=== PATIENT | male | born 1945 | race Caucasian/White ===

== ENCOUNTER → 2017-11-22 07:54 | Outpatient (CLI) | payer MEDICARE, OTHER, SELFPAY ==
[2017-11-22 08:20] LABS: Alanine Aminotransferase 25 U/L (12-78); Albumin Level 3.9 gm/dL (3.4-5.0); Albumin/Globulin Ratio 1.2 (1.1-1.8); Alkaline Phosphatase 72 U/L (46-116); Anion Gap 11.5 mEq/L (5-15); Aspartate Amino Transferase 11 U/L (15-37); Bilirubin,Total 0.4 mg/dL (0.2-1.0); Blood Urea Nitrogen 21 mg/dL (7-18); Calcium 10.1 mg/dL (8.5-10.1); Carbon Dioxide 29 mmol/L (21.0-32.0); Chloride 106 mmol/L (98-107); Chol/HDL Ratio 2.8 (1-3.5); Cholesterol 126 mg/dL (140-200); Creatinine,Serum 1.51 mg/dL (0.70-1.30); Estimated Glomerular Filt Rate 45 ml/min (>60); GFR (African American) 55 ML/MIN (>60); Globulin 3.3 gm/dl (1.3-3.2); Glucose 121 mg/dL (74-106); HDL Cholesterol 45 mg/dL (27-67); LDL Cholesterol 69 mg/dL (0-130); Potassium 4.5 mmoL/L (3.5-5.1); Sodium 142 mmol/L (136-145); Total Protein,Serum 7.2 gm/dL (6.4-8.2); Triglycerides 59 mg/dL (30-200); VLDL Cholesterol 12 mg/dL (0-40)
--- NOTE | 2017-11-22 08:21 | CT_ITS ---
CT abdomen pelvis wo/w con CLINICAL INDICATION: Hematuria ITS.REASON: Hematuria ORDERING PHYSICIAN: Austyn Staton MD PATIENT AGE: 72 years COMPARISON: 05/06/2011 TECHNIQUE: The exam is performed without and with contrast. Post enhanced immediate and 10 minute delayed images are obtained. Axial images obtained with sagittal and coronal reformats. All CT scans at the facility use one or more dose reduction, viz: automated exposure control, ma/kV adjustment per patient size (including targeted exams where dose is matched to indication, i.e. head), or iterative reconstruction technique. PROCEDURE: Oral Contrast: None IV Contrast: 75 mL's of Isovue-370.. FINDINGS: Lung bases are clear. The liver, spleen, adrenal glands, gallbladder, and pancreas have an unremarkable appearance. No renal calculi are evident. There is a 7 x 2 mm stone in the proximal left ureter. There is no obvious hydronephrosis. No suspicious renal mass. Small cyst is present along the lower pole the right kidney at 8 mm. The prostate is enlarged measuring 6 cm cephalad to caudad and 5.3 cm transverse with some central and peripheral coarse calcifications. Unremarkable appearing urinary bladder. Unremarkable appendix. No evidence of diverticulitis. There are diverticula of the descending and sigmoid colon. There are degenerative changes of lumbar spine. IMPRESSION: 1. 7 x 2 mm left proximal ureteral stone. No hydronephrosis. 2. Enlarged prostate. 3. Diverticulosis coli
[2017-11-23 14:54] LABS: Vitamin D 25 Hydroxy 46.7 ng/mL (30.0-100.0)
== END ==
PROVIDERS: Nurse Practitioner Family; Family Provider Internal Medicine Adolescent Medicine; PCP Internal Medicine Adolescent Medicine; Visit Provider Urology
DX: E78.5 Hyperlipidemia, unspecified (principal); I10 Essential (primary) hypertension; E55.9 Vitamin D deficiency, unspecified; R31.9 Hematuria, unspecified
CPT/HCPCS: 36415; 74170; 74178; 80053; 80061; 82652; Q9967

== ENCOUNTER → 2017-12-20 10:22 | Outpatient (CLI) | payer MEDICARE, OTHER, SELFPAY ==
--- NOTE | 2017-12-20 10:26 | XR_ITS ---
XR KUB HISTORY: ITS.REASON: KIDNEY STONE ORDERING PHYSICIAN: Austyn Staton MD PATIENT AGE: 72 years COMPARISON: 11/22/2017 FINDINGS: A left ureteral stent has been placed with the proximal aspect overlying the left region of the left renal pelvis and the distal aspect overlying the urinary bladder. There is a small area of increased density overlying the distal aspect of the ureteral stent and could be related to a distal ureteral stone. This measures approximately 4 mm There are degenerative changes in the lumbar spine and there is scattered vascular calcifications. IMPRESSION: Interval placement of left ureteral stent with possible stone in the distal left ureter at the ureterovesical junction
== END ==
PROVIDERS: PCP Internal Medicine Adolescent Medicine; Visit Provider Urology
DX: N20.0 Calculus of kidney (principal)
CPT/HCPCS: 74018

== ENCOUNTER → 2018-02-13 09:38 | Outpatient (POV) | payer MEDICARE, OTHER, SELFPAY ==
[2018-02-13 09:53] VITALS: BP 109/70; PULSE 71; RESP 18; O2SAT 94
--- NOTE | 2018-02-13 10:13 | HMH.PMCON ---
Assessment and Plan (1) Degenerative disc disease Current visit: Yes Status: Chronic Qualifiers: Spinal region: lumbar Qualified Code(s): M51.36 - Other intervertebral disc degeneration, lumbar region Category: Medical (2) Lumbar radiculopathy Current visit: Yes Status: Chronic Category: Medical Code(s): M54.16 - Radiculopathy, lumbar region - Assessment and plan all Dx Assessment and Plan for all problems:: We will schedule an L4-L5 lumbar epidural steroid injection for the patient. Patient is interested in this therapy. Patient is not on any anticoagulation therapy. Patient has tried and failed other therapies including physical therapy. Patient is continuing a home stretching regimen. I will follow-up with the patient after his injection. This note was dictated using voice recognition software and may contain errors or omissions HPI - Data of Consult Consult date: 02/13/18 Requesting Physician: Idalia Alcantar APRN Primary Care Provider: Aaron Peck MD - Consult Narrative Reason for consult: Back pain History of present illness: Mr. Burks is a 72 year old male who presents today for consultation in regards to his low back pain. Patient has low back pain radiating into his right leg at times. Patient also has some generalized arthritic pains. Patient has recently been having some numbness in his bilateral hands as well. Patient rates his pain a 5 out of 10 and states it is pretty constant. He states that stretching and heat decreases pain will cold and walking increase it. Patient has tried continual stretching programs along with narcotic medication and anti-inflammatories with no relief. Patient's not on any anticoagulation therapy. Patient is interested in injective therapy. CC: Idalia Alcantar APRN [facility] History I have reviewed the patient's past medical history: Yes Medical History: Reports:: Chronic Obstructive Pulmonary Disease (COPD), Hyperlipidemia, Hypertension, Urinary Tract Infection Denies:: Cancer, Diabetes Mellitus Type 1, Diabetes Mellitus Type 2, MRSA Other Medical History: Reports: Arthritis - *Social History Smoking Status: Never smoker Alcohol Intake: never Occupational Status: retired Housing: house - Psychiatric History Expresses thoughts of harming self/others: None Suicide Plan Description: No Plan *Family Hx:: No significant family history Review of Systems - Review of Systems ROS General: no recent weight change, no fever, no sleep disturbances Respiratory: no cough, no shortness of air, no recurring pulmonary infections Cardiovascular/Peripheral Vascular: No chest pain, No palpitations, no edema, no shortness of breath. Gastrointestinal: no new onset incontinence Genitourinary: no new onset incontinence Musculoskeletal: Back pain, leg pain, knee pain Psychiatric: normal mood/ affect Neurological: Weakness bilateral lower extremities, utilizes cane for balance Meds Home Medications Medication Instructions Recorded Confirmed Type atorvastatin 80 mg tablet PO 90 Days #90 11/15/17 01/10/18 History gabapentin 100 mg capsule PO 30 Days #90 11/15/17 01/10/18 History losartan 100 PO 90 Days #90 11/15/17 01/10/18 History mg-hydrochlorothiazide 25 mg tablet naproxen 500 mg tablet PO 30 Days #60 11/15/17 01/10/18 History potassium chloride ER 20 mEq PO 90 Days #180 11/15/17 01/10/18 History tablet,extended release(part/cryst) ranitidine 150 mg tablet PO 60 Days #120 11/15/17 01/10/18 History tamsulosin 0.4 mg capsule PO 90 Days #90 11/15/17 01/10/18 History Allergies Allergy/AdvReac Type Severity Reaction Status Date / Time codeine Allergy Unknown Verified 01/10/18 08:55 Penicillins Allergy Unknown Verified 01/10/18 08:55 Objective Vital signs: Pulse Resp BP Pulse Ox 71 18 109/70 L 94 L 02/13/18 09:53 02/13/18 09:53 02/13/18 09:53 02/13/18 09:53 Narrative: Physical Exam Gener
--- NOTE | 2018-02-13 10:17 | P.CONS_ITS ---
Assessment and Plan (1) Degenerative disc disease Current visit: Yes Status: Chronic Qualifiers: Spinal region: lumbar Qualified Code(s): M51.36 - Other intervertebral disc degeneration, lumbar region Category: Medical (2) Lumbar radiculopathy Current visit: Yes Status: Chronic Category: Medical Code(s): M54.16 - Radiculopathy, lumbar region - Assessment and plan all Dx Assessment and Plan for all problems:: We will schedule an L4-L5 lumbar epidural steroid injection for the patient. Patient is interested in this therapy. Patient is not on any anticoagulation therapy. Patient has tried and failed other therapies including physical therapy. Patient is continuing a home stretching regimen. I will follow-up with the patient after his injection. This note was dictated using voice recognition software and may contain errors or omissions HPI - Data of Consult Consult date: 02/13/18 Requesting Physician: Idalia Alcantar APRN Primary Care Provider: Aaron Peck MD - Consult Narrative Reason for consult: Back pain History of present illness: Mr. Burks is a 72 year old male who presents today for consultation in regards to his low back pain. Patient has low back pain radiating into his right leg at times. Patient also has some generalized arthritic pains. Patient has recently been having some numbness in his bilateral hands as well. Patient rates his pain a 5 out of 10 and states it is pretty constant. He states that stretching and heat decreases pain will cold and walking increase it. Patient has tried continual stretching programs along with narcotic medication and anti- inflammatories with no relief. Patient's not on any anticoagulation therapy. Patient is interested in injective therapy. CC: Idalia Alcantar APRN [facility] History I have reviewed the patient's past medical history: Yes Medical History: Reports:: Chronic Obstructive Pulmonary Disease (COPD), Hyperlipidemia, Hypertension, Urinary Tract Infection Denies:: Cancer, Diabetes Mellitus Type 1, Diabetes Mellitus Type 2, MRSA Other Medical History: Reports: Arthritis - *Social History Smoking Status: Never smoker Alcohol Intake: never Occupational Status: retired Housing: house - Psychiatric History Expresses thoughts of harming self/others: None Suicide Plan Description: No Plan *Family Hx:: No significant family history Review of Systems - Review of Systems ROS General: no recent weight change, no fever, no sleep disturbances Respiratory: no cough, no shortness of air, no recurring pulmonary infections Cardiovascular/Peripheral Vascular: No chest pain, No palpitations, no edema, no shortness of breath. Gastrointestinal: no new onset incontinence Genitourinary: no new onset incontinence Musculoskeletal: Back pain, leg pain, knee pain Psychiatric: normal mood/ affect Neurological: Weakness bilateral lower extremities, utilizes cane for balance Meds Home Medications Medication Instructions Recorded Confirmed Type atorvastatin 80 mg tablet PO 90 Days #90 11/15/17 01/10/18 History gabapentin 100 mg capsule PO 30 Days #90 11/15/17 01/10/18 History losartan 100 PO 90 Days #90 11/15/17 01/10/18 History mg-hydrochlorothiazide 25 mg tablet naproxen 500 mg tablet PO 30 Days #60 11/15/17 01/10/18 History potassium chloride ER 20 mEq PO 90 Days #180 11/15/17 01/10/18 History tablet,extended release(part/cryst)
== END ==
PROVIDERS: PCP Internal Medicine Adolescent Medicine; Visit Provider Clinical Nurse Specialist Family Health
DX: M51.16 Intervertebral disc disorders with radiculopathy, lumbar region (principal)
CPT/HCPCS: 99202

== ENCOUNTER → 2018-04-03 13:48 | Outpatient (POV) | payer MEDICARE, OTHER, SELFPAY ==
--- NOTE | 2018-04-03 14:08 | HMH.PAINSOAP ---
[facility] Pain Management SOAP Note Subjective:: Patient is a pleasant 72-year-old white male who presents today for follow-up after lumbar epidural steroid injection. Patient rates his pain a 7 out of 10 today. Patient rates that he did not get any relief from his epidural injection if he states most pain is in his back and not radiating. Patient does have some pain on twisting movement. ROS General: no recent weight change, no fever, no sleep disturbances Respiratory: no cough, no shortness of air, no recurring pulmonary infections Cardiovascular/Peripheral Vascular: No chest pain, No palpitations, no edema, no shortness of breath. Gastrointestinal: no incontinence, normal bowel movements reported Genitourinary: no incontinence Musculoskeletal: Back pain Psychiatric: normal mood/ affect Neurological: [denies weakness in extremities], [denies balance issues] Objective:: Physical Exam General: Alert and oriented x3, no acute distress, pleasant and cooperative, [on room air] Lungs: Resps E/U, Symmetrical chest expansion, Eyes: PERRL Musculoskeletal: Flexion and extension of lumbar spine somewhat guarded secondary to pain, deep tendon reflexes normal, strength in upper and lower extremities [5/5], [abnormal gait noted] Positive Kemps test bilateral lumbar spine. 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 I believe it would be beneficial and help with diagnosing his pain source. Patient is having positive facet loading lumbar spine bilaterally. No follow-up with the patient after his injection and reassess his symptoms at that time. Patient is able to take NSAIDs due to his kidneys. Patient is taking Tylenol. Patient is continuing a home stretching regimen. This note was dictated using voice recognition software and may contain errors or omissions
--- NOTE | 2018-04-03 14:11 | P.CONS_ITS ---
[facility] Pain Management SOAP Note Subjective:: Patient is a pleasant 72-year-old white male who presents today for follow-up after lumbar epidural steroid injection. Patient rates his pain a 7 out of 10 today. Patient rates that he did not get any relief from his epidural injection if he states most pain is in his back and not radiating. Patient does have some pain on twisting movement. ROS General: no recent weight change, no fever, no sleep disturbances Respiratory: no cough, no shortness of air, no recurring pulmonary infections Cardiovascular/Peripheral Vascular: No chest pain, No palpitations, no edema, no shortness of breath. Gastrointestinal: no incontinence, normal bowel movements reported Genitourinary: no incontinence Musculoskeletal: Back pain Psychiatric: normal mood/ affect Neurological: [denies weakness in extremities], [denies balance issues] Objective:: Physical Exam General: Alert and oriented x3, no acute distress, pleasant and cooperative, [on room air] Lungs: Resps E/U, Symmetrical chest expansion, Eyes: PERRL Musculoskeletal: Flexion and extension of lumbar spine somewhat guarded secondary to pain, deep tendon reflexes normal, strength in upper and lower extremities [5/5], [abnormal gait noted] Positive Kemps test bilateral lumbar spine. 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 I believe it would be beneficial and help with diagnosing his pain source. Patient is having positive facet loading lumbar spine bilaterally. No follow-up with the patient after his injection and reassess his symptoms at that time. Patient is able to take NSAIDs due to his kidneys. Patient is taking Tylenol. Patient is continuing a home stretching regimen. This note was dictated using voice recognition software and may contain errors or omissions
[2018-04-03 14:32] VITALS: BP 148/71; PULSE 70; RESP 18; O2SAT 98; BMI 43.7
== END ==
PROVIDERS: PCP Internal Medicine Adolescent Medicine; Visit Provider Clinical Nurse Specialist Family Health
DX: M51.36 Other intervertebral disc degeneration, lumbar region (principal); M54.06 Panniculitis affecting regions of neck and back, lumbar region; M47.896 Other spondylosis, lumbar region
CPT/HCPCS: 99213

== ENCOUNTER → 2018-05-01 12:44 | Outpatient (POV) | payer MEDICARE, OTHER, SELFPAY ==
[2018-05-01 13:15] VITALS: BP 132/67; PULSE 62; RESP 18; O2SAT 99; BMI 42.3
--- NOTE | 2018-05-01 13:19 | P.CONS_ITS ---
[facility] Pain Management SOAP Note Subjective:: Patient is a pleasant 72-year-old white male who we are treating for low back pain with lumbar radicular symptoms. Patient has tried and failed both epidural and facet joint injections. Patient got no relief he rates his pain a 9 out of 10. Patient states he is less active. Patient does not have any recent imaging. I do believe it would be pertinent to get some updated diagnostic studies. ROS General: no recent weight change, no fever, no sleep disturbances Respiratory: no cough, no shortness of air, no recurring pulmonary infections Cardiovascular/Peripheral Vascular: No chest pain, No palpitations, no edema, no shortness of breath. Gastrointestinal: no incontinence, normal bowel movements reported Genitourinary: no incontinence Musculoskeletal: Back pain, leg pain Psychiatric: normal mood/ affect Neurological: Bilateral lower extremities, [denies balance issues] Objective:: Physical Exam General: Alert and oriented x3, no acute distress, pleasant and cooperative, [on room air] Lungs: Resps E/U, Symmetrical chest expansion, Eyes: PERRL Musculoskeletal: Flexion and extension of lumbar spine somewhat guarded secondary to pain, deep tendon reflexes normal, strength in upper and lower extremities [4/5], [abnormal gait noted] Neurological: 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 Patient might be a candidate for intrathecal therapy. I will follow-up with him after his MRI. Dr. Goss has reviewed this note and agrees with this plan of care. This note was dictated using voice recognition software and may contain errors or omissions
== END ==
PROVIDERS: PCP Internal Medicine Adolescent Medicine; Visit Provider Clinical Nurse Specialist Family Health
DX: M51.36 Other intervertebral disc degeneration, lumbar region (principal); M47.896 Other spondylosis, lumbar region; M54.06 Panniculitis affecting regions of neck and back, lumbar region
CPT/HCPCS: 99213

== ENCOUNTER → 2018-05-04 09:36 | Outpatient (CLI) | payer MEDICARE, OTHER, SELFPAY ==
--- NOTE | 2018-05-04 09:39 | MR_ITS ---
MR lumbar spine wo con, MR 3-d myelogram/MRCP HISTORY: PT states Low back pain, mid back pain, and right leg pain. At times PT states Rt toes numbness and tingling. Symptoms X 1 YR or longer. ITS.REASON: BACK PAIN ORDERING PHYSICIAN: Carlos Eduardo Goss MD PATIENT AGE: 72 years Comparison: MRI 07/16/13. TECHNIQUE: Standard multiplanar multiecho sequences are performed without contrast. 3-D MIP and myelographic images are also rendered and reviewed FINDINGS: There is normal alignment. The spinal cord ends at the L1 level. Multilevel degenerative disc disease with bulging disc and canal stenosis is noted as outlined below. T11-12: Degenerative disc disease with bulging disc and minimal left paracentral disc protrusion with borderline narrowing of the canal. There is severe bilateral lateral recess narrowing and moderate bilateral foraminal narrowing. Lateral recess narrowing is slightly greater on the left secondary to the mild left paracentral disc protrusion. These findings have progressed since the previous exam. T12-L1: Mild facet and ligamentum flavum hypertrophy. L1-L2: Degenerative disc disease with bulging disc with 3 mm anterolisthesis of L1. Moderate facet and ligamentum flavum hypertrophy with moderate to severe bilateral lateral recess narrowing and moderate bilateral foraminal narrowing. Prominent facet hypertrophic changes present on the left at this level with narrowing of the canal. There is transverse narrowing of the canal. The left-sided ligamentum and facet hypertrophy has progressed since the previous exam. L2-L3: Degenerative disc disease with bulging disc along with facet and ligamentum flavum hypertrophy L3-L4: Degenerative disc disease with bulging disc and mild endplate hypertrophic change with moderate to severe facet and ligamentum flavum hypertrophy. There is transverse narrowing of the canal at this level. The narrowing of the canal slightly worse compared to the previous exam. L4-5: Degenerative disc disease with bulging disc with severe facet and ligamentum flavum hypertrophy. There is severe bilateral lateral recess narrowing and severe canal stenosis at this level which has progressed since the previous exam moderate right-sided foraminal narrowing also noted. L5-S1: Degenerative disc disease with bulging disc along with facet and ligamentum flavum hypertrophy with moderate to severe bilateral foraminal narrowing left greater than right. No extruded herniated disc are evident. IMPRESSION: Abnormal MR of the lumbar spine with multilevel degenerative disc disease with bulging bulging discs along with facet and ligamentum flavum hypertrophic change with canal stenosis and bilateral lateral recess and foraminal narrowing. Please see above for detailed description at each level. This canal stenosis is most severe at the L4-L5 level. The findings have progressed since the previous exam. There is a small left paracentral disc protrusion at T11-T12.
== END ==
PROVIDERS: PCP Internal Medicine Adolescent Medicine; Visit Provider Anesthesiology
DX: M54.5 Low back pain (principal)
CPT/HCPCS: 72148; 76376

== ENCOUNTER → 2018-05-16 09:24 | Outpatient (POV) | payer MEDICARE, OTHER, SELFPAY ==
[2018-05-16 09:35] VITALS: BP 155/74; PULSE 74; RESP 18; O2SAT 98; BMI 42.7
--- NOTE | 2018-05-16 09:58 | HMH.PAINSOAP ---
[facility] Pain Management SOAP Note Subjective:: Patient is a pleasant 72-year-old white male who presents today for follow-up after recent MRI. Patient has had facet joint injections along with lumbar epidural injections with no relief. He states that he is having pain when he is standing and walking. Patient finds himself leaning forward. Patient has moderate severe ligamentum flavum hypertrophy at L3-L4 and also severe ligamentum flavum hypertrophy at L4-L5. Patient and I had a long discussion about the mild procedure he rates his pain an 8 out of 10. ROS General: no recent weight change, no fever, no sleep disturbances Respiratory: no cough, no shortness of air, no recurring pulmonary infections Cardiovascular/Peripheral Vascular: No chest pain, No palpitations, no edema, no shortness of breath. Gastrointestinal: no incontinence, normal bowel movements reported Genitourinary: no incontinence Musculoskeletal: Back pain Psychiatric: normal mood/ affect Neurological: [denies weakness in extremities], [denies balance issues] Objective:: Physical Exam General: Alert and oriented x3, no acute distress, pleasant and cooperative, on room air Lungs: Resps E/U, Symmetrical chest expansion, Eyes: PERRL Musculoskeletal: Flexion and extension of lumbar spine somewhat guarded secondary to pain, deep tendon reflexes normal, strength in upper and lower extremities [5/5], [abnormal gait noted] Neurological: speech clear, relations coordinator 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 I will follow-up with the patient after his procedure and reassess his symptoms at that time. Patient is not on any anticoagulation therapy. Dr. Goss has reviewed this note and agrees with this plan of care. This note was dictated using voice recognition software and may contain errors or omissions
--- NOTE | 2018-05-16 10:00 | XR_ITS ---
EXAM: XR lumbar spine bending only HISTORY: Chronic back pain ITS.REASON: BACK PAIN ORDERING PHYSICIAN: Idalia Alcantar PATIENT AGE: 72 years COMPARISON: None FINDINGS: Flexion and extension views of the lumbar spine are obtained along with an AP view of the lumbar spine. There is multilevel degenerative disc disease from L1 to S1 with endplate osteophytes and decrease in the disc spaces. There is mild anterolisthesis of L4 on L5 which is present in both flexion and extension of approximately 5 mm. This does not change in flexion or extension. There is mild thoracolumbar curvature convex right. No fracture or dislocation. Facet arthritic changes are present at L4-5 IMPRESSION: 1. Mild anterolisthesis L4 on L5 which does not change in flexion or extension 2. Lumbar spondylosis
--- NOTE | 2018-05-16 10:02 | P.CONS_ITS ---
[facility] Pain Management SOAP Note Subjective:: Patient is a pleasant 72-year-old white male who presents today for follow-up after recent MRI. Patient has had facet joint injections along with lumbar epidural injections with no relief. He states that he is having pain when he is standing and walking. Patient finds himself leaning forward. Patient has moderate severe ligamentum flavum hypertrophy at L3-L4 and also severe ligamentum flavum hypertrophy at L4-L5. Patient and I had a long discussion about the mild procedure he rates his pain an 8 out of 10. ROS General: no recent weight change, no fever, no sleep disturbances Respiratory: no cough, no shortness of air, no recurring pulmonary infections Cardiovascular/Peripheral Vascular: No chest pain, No palpitations, no edema, no shortness of breath. Gastrointestinal: no incontinence, normal bowel movements reported Genitourinary: no incontinence Musculoskeletal: Back pain Psychiatric: normal mood/ affect Neurological: [denies weakness in extremities], [denies balance issues] Objective:: Physical Exam General: Alert and oriented x3, no acute distress, pleasant and cooperative, on room air Lungs: Resps E/U, Symmetrical chest expansion, Eyes: PERRL Musculoskeletal: Flexion and extension of lumbar spine somewhat guarded secondary to pain, deep tendon reflexes normal, strength in upper and lower extremities [5/5], [abnormal gait noted] Neurological: speech clear, 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 I will follow-up with the patient after his procedure and reassess his symptoms at that time. Patient is not on any anticoagulation therapy. Dr. Goss has reviewed this note and agrees with this plan of care. This note was dictated using voice recognition software and may contain errors or omissions
== END ==
PROVIDERS: PCP Internal Medicine Adolescent Medicine; Visit Provider Clinical Nurse Specialist Family Health
DX: M51.16 Intervertebral disc disorders with radiculopathy, lumbar region (principal); M48.062 Spinal stenosis, lumbar region with neurogenic claudication; M46.00 Spinal enthesopathy, site unspecified; M54.9 Dorsalgia, unspecified
CPT/HCPCS: 72020; 72120; 99213

== ENCOUNTER → 2018-06-05 10:40 | Outpatient (POV) | payer MEDICARE, OTHER, SELFPAY ==
[2018-06-05 10:55] VITALS: BP 151/68; PULSE 75; RESP 18; O2SAT 98; BMI 41.1
--- NOTE | 2018-06-05 12:18 | HMH.PAINSOAP ---
[facility] Pain Management SOAP Note Subjective:: Patient is a pleasant 72-year-old white male who presents today for follow-up after mild procedure. Patient states after his procedure he was able to walk with no issues along with having decreased pain however today he rates his pain a 6 out of 10. Patient states that he would like to move forward with physical therapy. I do believe that this will be beneficial for him. ROS General: no recent weight change, no fever, no sleep disturbances Respiratory: no cough, no shortness of air, no recurring pulmonary infections Cardiovascular/Peripheral Vascular: No chest pain, No palpitations, no edema, no shortness of breath. Gastrointestinal: no incontinence, normal bowel movements reported Genitourinary: no incontinence Musculoskeletal: Back pain, leg pain Psychiatric: normal mood/ affect Neurological: [denies weakness in extremities], [denies balance issues] Objective:: Physical Exam General: Alert and oriented x3, no acute distress, pleasant and cooperative, [on room air] Lungs: Resps E/U, Symmetrical chest expansion, Eyes: PERRL Musculoskeletal: Flexion and extension of lumbar spine somewhat guarded secondary to pain, deep tendon reflexes normal, strength in upper and lower extremities [4/5], [abnormal gait noted] Neurological: speech clear, processing lead equal, no gross sensory deficits Assessment:: 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 I will see the patient back in 1 month and reassess his symptoms at that time. He is been instructed to call the office if he has any issues prior to his next appointment. Dr. Goss has reviewed this note and agrees with this plan of care. This note was dictated using voice recognition software and may contain errors or omissions
== END ==
PROVIDERS: PCP Internal Medicine Adolescent Medicine; Visit Provider Clinical Nurse Specialist Family Health
DX: M48.062 Spinal stenosis, lumbar region with neurogenic claudication (principal)
CPT/HCPCS: 99213

== ENCOUNTER 2018-06-08 12:52 | Outpatient (RCR) | payer MEDICARE, OTHER, SELFPAY ==
--- NOTE | 2018-06-08 13:59 | HMH.PTOPEV ---
PT Outpatient Evaluation Rehab PT Outpatient Evaluation Start: 06/08/18 13:01 Freq: Status: Active Protocol: Document 06/08/18 13:49 MELAGREGORY (Rec: 06/08/18 13:59 COREY [id number]) Electronically Signed By Leo Foster PT 06/08/18 13:49 Outpatient Therapy Subjective History Subjective History THis is the initial outpatient Physical THerapy evaluation for Leroy Burks. Pt is a 72 y/o male referred to PT for eval and HEP s/p lumbar decompression. Pt reports he had surgery ~ 2 weeks ago. Pt reports he has soreness in back. Chief Complaint Pain Stiff Symptom Type Ache Symptoms Relieved By Rest/Positioning Symptoms Aggravated By Standing Walking Prior Functional Limitations Housework Standing Recreation Activity Walking Current Functional Limitations Housework Standing Recreation Activity Walking Symptom Description Constant but Variable Level of pain today (0-10) 4 Pain scale - at its best (0-10) 4 Pain scale - at its worst (0-10) 8 Lumbopelvic Eval Posture Thoracic Spine Posture Standing Position Increased Kyphosis Lumbar Spine Posture Standing Position Decreased Lordosis Assistive device Assistive Devices Straight Cane Gait Observation General Gait Pattern Observation Wide Based Gait Range of Motion Lumbar Spine Active Flexion Range of 90 Motion (degrees) Lumbar Spine Active Extension Range of 0 Motion (degrees) Left Lumbar Spine Lateral Flexion Active 25 Range of Motion (degrees) Right Lumbar Spine Lateral Flexion 25 Active Range of Motion (degrees) Special Tests Forward Bending Test- Standing Negative Left Negative Right Forward Bending Test- Sitting Negative Left Negative Right Unilateral Straight Leg Raise (Lasegue) Negative Left Test Negative Right Outpatient Therapy Assessment Impairments Problems/Impairmments Impaired Range of Motion Impaired Walking Impaired Standing Impaired Household Care Impaired Recreational Activities Subjective C/O Pain Prognosis Re
== END 2018-06-08 12:55 | disposition home or self-care (01) ==
LOC: PT 12:52
PROVIDERS: Visit Provider Clinical Nurse Specialist Family Health
DX: M48.061 Spinal stenosis, lumbar region without neurogenic claudication (principal)
CPT/HCPCS: 97110; 97163

== ENCOUNTER → 2018-07-10 09:21 | Outpatient (POV) | payer MEDICARE, OTHER, SELFPAY ==
[2018-07-10 09:41] VITALS: BP 170/79; PULSE 68; RESP 18; O2SAT 98; BMI 41.6
--- NOTE | 2018-07-10 09:55 | HMH.PAINSOAP ---
[facility] Pain Management SOAP Note Subjective:: Patient is a pleasant 72-year-old white male who presents today for follow-up. Patient currently rates his pain a 4 out of 10 he states he is able to walk much further and able to stand straighter after his mild procedure. Patient has completed physical therapy. Patient would like to follow-up on an as-needed basis. ROS General: no recent weight change, no fever, no sleep disturbances Respiratory: no cough, no shortness of air, no recurring pulmonary infections Cardiovascular/Peripheral Vascular: No chest pain, No palpitations, no edema, no shortness of breath. Gastrointestinal: no incontinence, normal bowel movements reported Genitourinary: no incontinence Musculoskeletal: Back pain, leg pain Psychiatric: normal mood/ affect Neurological: [denies weakness in extremities], [denies balance issues] Objective:: Physical Exam General: Alert and oriented x3, no acute distress, pleasant and cooperative, [on room air] Lungs: Resps E/U, Symmetrical chest expansion, Eyes: PERRL Musculoskeletal: Flexion and extension of lumbar spine somewhat guarded secondary to pain, deep tendon reflexes normal, strength in upper and lower extremities [5/5], [abnormal gait noted] Neurological: 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 He is been instructed to call the office if he has any increase in his pain. Dr. Goss has reviewed this note and agrees with this plan of care. This note was dictated using voice recognition software and may contain errors or omissions
--- NOTE | 2018-07-10 09:58 | P.CONS_ITS ---
[facility] Pain Management SOAP Note Subjective:: Patient is a pleasant 72-year-old white male who presents today for follow-up. Patient currently rates his pain a 4 out of 10 he states he is able to walk much further and able to stand straighter after his mild procedure. Patient has completed physical therapy. Patient would like to follow-up on an as-needed basis. ROS General: no recent weight change, no fever, no sleep disturbances Respiratory: no cough, no shortness of air, no recurring pulmonary infections Cardiovascular/Peripheral Vascular: No chest pain, No palpitations, no edema, no shortness of breath. Gastrointestinal: no incontinence, normal bowel movements reported Genitourinary: no incontinence Musculoskeletal: Back pain, leg pain Psychiatric: normal mood/ affect Neurological: [denies weakness in extremities], [denies balance issues] Objective:: Physical Exam General: Alert and oriented x3, no acute distress, pleasant and cooperative, [on room air] Lungs: Resps E/U, Symmetrical chest expansion, Eyes: PERRL Musculoskeletal: Flexion and extension of lumbar spine somewhat guarded secondary to pain, deep tendon reflexes normal, strength in upper and lower extremities [5/5], [abnormal gait noted] Neurological: speech clear, shareholder equal, no gross sensory deficits Assessment:: 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 He is been instructed to call the office if he has any increase in his pain. Dr. Goss has reviewed this note and agrees with this plan of care. This note was dictated using voice recognition software and may contain errors or omissions
== END ==
PROVIDERS: PCP Internal Medicine Adolescent Medicine; Visit Provider Clinical Nurse Specialist Family Health
DX: M48.062 Spinal stenosis, lumbar region with neurogenic claudication (principal)
CPT/HCPCS: 99212

== ENCOUNTER → 2018-07-11 11:24 | Outpatient (CLI) | payer MEDICARE, OTHER, SELFPAY ==
--- NOTE | 2018-07-11 11:29 | XR_ITS ---
XR KUB HISTORY: ITS.REASON: kidney stones ORDERING PHYSICIAN: Austyn Staton MD PATIENT AGE: 72 years COMPARISON: 12/20/2017 FINDINGS: Left ureteral stent is no longer present. 6 mm stone is present in the mid to lower pole of the right kidney. There are multiple pelvic phleboliths. Vascular calcifications are also present. Calcification noted of the left femoral neck suggesting a bone island. IMPRESSION: Right nephrolithiasis
== END ==
PROVIDERS: PCP Internal Medicine Adolescent Medicine; Visit Provider Urology
DX: N20.0 Calculus of kidney (principal)
CPT/HCPCS: 74018

== ENCOUNTER → 2018-11-07 11:15 | Outpatient (CLI) | payer MEDICARE, OTHER, SELFPAY ==
--- NOTE | 2018-11-07 11:20 | XR_ITS ---
PROCEDURE: XR KUB CLINICAL INDICATION: KIDNEY STONE COMPARISON: 07/11/2018 TECHNIQUE: FINDINGS: Previously noted stone overlying the medial aspect of the right kidney is not apparent. There is a stone overlying the lower pole of the right kidney measuring 6 x 2 mm. Multiple pelvic calcifications are present and may be due to phleboliths. A calcification was present in the right pelvic region overlying the sacrum on the previous exam not apparent on today's study and may have been due to ureteral stone. IMPRESSION: Right nephrolithiasis. Please see above for detail Dictated by: Jun Vasques MD 11/08/2018 05:54 Signed by: <Electronically signed by Jun Vasques MD in [place]> 11/08/2018 05:54
== END ==
PROVIDERS: PCP Internal Medicine Adolescent Medicine; Visit Provider Urology
DX: N20.0 Calculus of kidney (principal)
CPT/HCPCS: 74018

== ENCOUNTER → 2019-05-24 11:33 | Outpatient (CLI) | payer MEDICARE, OTHER, SELFPAY ==
[2019-05-24 16:38] LABS: Prostate Specific Ag, Diagnost 1.44 ng/ml (0.0-4.0)
== END ==
PROVIDERS: Visit Provider Urology
DX: N40.0 Benign prostatic hyperplasia without lower urinary tract symptoms (principal)
CPT/HCPCS: 36415; 84153

== ENCOUNTER → 2020-07-14 15:04 | Outpatient (CLI) | payer MEDICARE, SELFPAY ==
[2020-07-14 17:34] LABS: Prostate Specific Ag Screen 0.7 ng/ml (0.0-4.0)
== END ==
PROVIDERS: Visit Provider Urology
DX: Z12.5 Encounter for screening for malignant neoplasm of prostate (principal)
CPT/HCPCS: 36415; G0103

== ENCOUNTER → 2020-08-05 18:15 | Outpatient (CLI) | payer MEDICARE, SELFPAY ==
[2020-08-05 19:00] LABS: Basophils # 0.1 K/mm3 (0-0.2); Basophils % 0.8 % (0.1-2.0); Eosinophils # 0.1 K/mm3 (0.0-0.4); Eosinophils % 0.7 % (0.1-12.0); Hematocrit 50.2 % (42.0-52.0); Hemoglobin 15.9 g/dL (14.1-18.0); Lymphocytes # 2.7 K/mm3 (0.7-4.5); Lymphocytes % 30.9 % (10-50); Mean Corpuscular HGB Conc 31.7 g/dL (31.8-35.4); Mean Corpuscular Volume 97.9 fl (80-94); Mean Platelet Volume 9.6 fl (7.4-10.4); Monocytes # 0.5 K/mm3 (0.1-1.0); Monocytes % 6.2 % (1.7-9.3); Neutrophils # 5.3 K/mm3 (1.8-7.8); Neutrophils % 61.3 % (37.0-80.0); Platelet Count 204 K/mm3 (142-424); Red Blood Count 5.12 M/mm3 (4.60-6.20); White Blood Count 8.6 K/mm3 (4.8-10.8)
[2020-08-05 19:25] LABS: Alanine Aminotransferase 13 U/L (12-78); Albumin Level 4.3 g/dl (3.5-5.0); Alkaline Phosphatase 73 U/L (38-126); Anion Gap 12.7 mEq/L (5-15); Aspartate Amino Transferase 21 U/L (17-59); Bilirubin,Total 0.5 mg/dl (0.2-1.3); Blood Urea Nitrogen 22 mg/dl (9-20); Calcium 10.7 mg/dl (8.4-10.2); Carbon Dioxide 29 mmol/L (22.0-30.0); Chloride 105 mmol/L (98-107); Estimated Glomerular Filt Rate 54 ml/min (>60); GFR (African American) 65 ML/MIN (>60); Globulin 2.2 g/dL (1.3-3.2); Glucose 102 mg/dl (74-100); Potassium 4.7 mmoL/L (3.5-5.1); Sodium 142 mmol/L (136-145); Total Protein,Serum 6.5 g/dl (6.3-8.2)
[2020-08-05 20:14] LABS: Vitamin B12 189 pg/mL (239-931)
[2020-08-05 20:34] LABS: Free Thyroxine Index 2.7 ug/dL (5.93-13.13); Triiodothryronine (T3) Uptake 34 % (23.5-40.5)
[2020-08-05 20:48] LABS: Thyroid Stimulating Hormone 1.33 uIU/mL (0.465-4.68)
[2020-08-12 11:17] LABS: Methylmalonic Acid 351 nmol/L (0-378)
== END ==
PROVIDERS: Visit Provider Internal Medicine Adolescent Medicine
DX: I73.9 Peripheral vascular disease, unspecified (principal); R41.89 Other symptoms and signs involving cognitive functions and awareness; R44.2 Other hallucinations; Z79.899 Other long term (current) drug therapy
CPT/HCPCS: 80053; 82131; 82607; 84436; 84443; 84479; 85025

== ENCOUNTER → 2020-08-11 12:55 | Outpatient (CLI) | payer MEDICARE, SELFPAY ==
--- NOTE | 2020-08-11 | US_ITS ---
APPROVED REPORT Exam Type: Ankle to Brachial Index Router Operator Pin: geneva/Carlos Alberto Indications Claudication: PVD Pressures/Indices Right Indices Left Indices Brachial 154.00 mmHg Brachial 141.00 mmHg Low Thigh 157.00 mmHg 1.02 Low Thigh 134.00 mmHg 0.87 Calf 169.00 mmHg 1.10 Calf 189.00 mmHg 1.23 Ankle(PT) 179.00 mmHg 1.16 Ankle(PT) 191.00 mmHg 1.24 Ankle(DP) 147.00 mmHg 0.95 Ankle(DP) 164.00 mmHg 1.06 Digit 94.00 mmHg 0.61 Digit 88.00 mmHg 0.57 Findings Exremely irregular heartrate with long pauses throughout exam. RT SHANTAL=1.16 LT SHANTAL=1.24 RT TPI=0.61 LT TPI=0.57 Normal appearing resting noninvasive lower extremity arterial study. Conclusion RT SHANTAL=1.16 LT SHANTAL=1.24 RT TPI=0.61 LT TPI=0.57 Electronically signed by : Jun Vasques MD 08/11/2020 17:24:13
--- NOTE | 2020-08-11 13:44 | MR_ITS ---
PROCEDURE: MR HEAD/BRAIN WO CON CLINICAL INDICATION: COGNITIVE IMPAIRMENT, TACTILE HALLUCINATION Memory loss. Family hx of dementia. COMPARISON: No exams were available for comparison TECHNIQUE: Routine multiplanar multi echo sequences are performed without gadolinium enhancement. FINDINGS: No midline shift, mass effect, intracranial hemorrhage, or hydrocephalus is evident. No evidence of acute infarction. There is generalized atrophy with scattered T2 white matter hyperintensities which do not demonstrate restricted diffusion consistent with ischemic gliotic foci from microvascular disease. The cerebellopontine angles, cerebellum, and brainstem have an unremarkable appearance. The pituitary, optic chiasm, corpus callosum, and craniocervical junction have an unremarkable appearance. No temporal lobe mass. Hippocampal gyri are unremarkable in the temporal horns are symmetric. No mastoid effusion or sinus air-fluid level. IMPRESSION: 1. No acute intracranial findings. 2. Generalized atrophy with scattered T2 white matter hyperintensities which may be related to microvascular angio pathic changes. Dictated by: Jun Vasques MD 08/12/2020 09:50 Jun Vasques MD in [place] 08/12/2020 09:50
== END ==
PROVIDERS: PCP Internal Medicine Adolescent Medicine; Visit Provider Internal Medicine Adolescent Medicine
DX: R41.89 Other symptoms and signs involving cognitive functions and awareness (principal); R44.2 Other hallucinations; I70.213 Atherosclerosis of native arteries of extremities with intermittent claudication, bilateral legs
CPT/HCPCS: 70551; 93923

== ENCOUNTER → 2021-03-17 21:02 | Outpatient (CLI) | payer MEDICARE, SELFPAY ==
[2021-03-17 21:40] LABS: Basophils % 0.6 % (0.1-2.0); Eosinophils # 0.1 K/mm3 (0.0-0.4); Eosinophils % 1.4 % (0.1-12.0); Hematocrit 48.3 % (42.0-52.0); Hemoglobin 15.5 g/dL (14.1-18.0); Lymphocytes # 2.3 K/mm3 (0.7-4.5); Lymphocytes % 31.8 % (10-50); Mean Corpuscular Hemoglobin 31.3 pg (27.0-31.2); Mean Corpuscular Volume 97.9 fl (80-94); Mean Platelet Volume 9.3 fl (7.4-10.4); Monocytes # 0.5 K/mm3 (0.1-1.0); Monocytes % 6.2 % (1.7-9.3); Neutrophils # 4.3 K/mm3 (1.8-7.8); Platelet Count 231 K/mm3 (142-424); Red Blood Count 4.94 M/mm3 (4.60-6.20); Red Cell Distribution Width 13.5 % (11.5-17.5); White Blood Count 7.2 K/mm3 (4.8-10.8)
[2021-03-17 21:53] LABS: Alanine Aminotransferase 17 U/L (12-78); Albumin Level 3.8 g/dl (3.5-5.0); Albumin/Globulin Ratio 1.7 (1.1-1.8); Alkaline Phosphatase 74 U/L (38-126); Anion Gap 11.2 mEq/L (5-15); Aspartate Amino Transferase 22 U/L (17-59); Bilirubin,Total 0.4 mg/dl (0.2-1.3); Blood Urea Nitrogen 19 mg/dl (9-20); Calcium 10.2 mg/dl (8.4-10.2); Carbon Dioxide 30 mmol/L (22.0-30.0); Chloride 102 mmol/L (98-107); Chol/HDL Ratio 4.2 (1-3.5); Cholesterol 143 mg/dl (140-200); Estimated Glomerular Filt Rate 54 ml/min (>60); GFR (African American) 65 ML/MIN (>60); Globulin 2.3 g/dL (1.3-3.2); Glucose 112 mg/dl (74-100); HDL Cholesterol 34 mg/dl (40-60); Magnesium 1.5 mg/dl (1.6-2.3); Potassium 4.2 mmoL/L (3.5-5.1); Sodium 139 mmol/L (136-145); Total Protein,Serum 6.1 g/dl (6.3-8.2); Triglycerides 160 mg/dl (30-150); VLDL Cholesterol 32 mg/dL (0-40)
[2021-03-17 22:04] LABS: Direct LDL Cholesterol 87.91 mg/dL (100-129)
[2021-03-17 22:22] LABS: Thyroid Stimulating Hormone 1.22 uIU/mL (0.465-4.68)
== END ==
PROVIDERS: Visit Provider Internal Medicine Adolescent Medicine
DX: I50.30 Unspecified diastolic (congestive) heart failure (principal); E78.5 Hyperlipidemia, unspecified
CPT/HCPCS: 80053; 80061; 83735; 84443; 85025

== ENCOUNTER 2021-08-23 13:35 | Emergency (ER) | payer MEDICARE, SELFPAY ==
[2021-08-23 14:00] VITALS: BP 125/78; PULSE 91; RESP 18; TEMP 36.9; O2SAT 97; BMI 41.6
[2021-08-23 14:01] VITALS: BP 125/78; PULSE 91; RESP 18; TEMP 36.9; O2SAT 97; BMI 41.5
--- NOTE | 2021-08-23 14:10 | XR_ITS ---
PROCEDURE INFORMATION: Exam: XR Lumbosacral Spine Exam date and time: 08/23/2021 2:29 PM Age: 76 years old Clinical indication: Pain; Lumbago TECHNIQUE: Imaging protocol: XR of the lumbosacral spine. Views: 2 or 3 views. COMPARISON: CR [id number] XR lumbar spine 1V 05/16/2018 10:04 AM FINDINGS: Bones/joints: No acute skeletal pathology. Moderate multilevel degenerative changes of the spine, as manifested by multilevel anterior osteophytes and multilevel decrease in intervertebral disc space. The spinal canal is patent. Diffuse moderate facet joint hypertrophy. No aggressive osseous lesions. Soft tissues: There is no significant soft tissue swelling. Vasculature: The aorta demonstrates moderate atherosclerotic calcification. Other findings: There is no evidence of acutely displaced fractures. There is no evidence of joint dislocation. IMPRESSION: Moderate multilevel degenerative changes without acute skeletal pathology.
--- NOTE | 2021-08-23 14:10 | XR_ITS ---
PROCEDURE INFORMATION: Exam: XR Left Knee Exam date and time: 08/23/2021 2:30 PM Age: 76 years old Clinical indication: Pain; Knee; Left TECHNIQUE: Imaging protocol: XR Left knee. Views: 3 views. COMPARISON: US ARTERIAL LOWER EXT REST 08/11/2020 1:10 PM FINDINGS: Bones/joints: Osseous anatomic alignment is well preserved. No acutely displaced fracture or dislocation. Joint spaces are well preserved. Soft tissues: No significant soft tissue swelling. Vasculature: The arterial vasculature demonstrates diffuse moderate atherosclerotic calcification. IMPRESSION: No acute skeletal pathology.
--- NOTE | 2021-08-23 14:31 | HMH.EDUTC ---
[facility] [place] Disposition Clinical Impression: Low back pain Qualifiers: Chronicity: unspecified Back pain laterality: left Sciatica presence: with sciatica Sciatica laterality: sciatica of left side Qualified Code(s): M54.42 - Lumbago with sciatica, left side Disposition: Home, Self-Care Condition on Discharge: Good Instructions: Low Back Pain, DI for Low Back Pain, DI for Knee Pain Additional Instructions: *Ibuprofen shivani 6 hours with meal as needed for pain/inflammation if you can take it *Not additional anti-inflammatory like motrin, aleve, advil with the above amount of ibuprofen. You can still take Tylenol every 4 hours as needed if you need something else for pain *moist heat every 20 minutes 3-4 times a day to affected area *Keep this area active, no movement leads to more stiffness, However take it easy and avoid heavy lifting pushing or pulling *Follow up with you family doctor if no improvement and for further treatment Return if needed Straight to ER if any life threatening symptoms Referrals: Aaron Peck MD [Primary Care Provider] - As needed Time of Disposition: 15:14 Medical Decision Making - Gage Inquiry Pt receiving controlled substance: No Gage was queried for this patient: No Vital Signs: 08/23/21 14:00 08/23/21 14:01 08/23/21 15:20 Temperature 98.4 F 98.4 F 98.4 F Temperature Source Oral Oral Pulse Rate 91 H Pulse Rate [Left Radial] 91 H 91 H Respiratory Rate 18 18 18 Blood Pressure 125/78 Blood Pressure [Left Arm] 125/78 125/78 Blood Pressure Mean [Left Arm] 93 93 Blood Pressure Source [Left Arm] Automatic Cuff Automatic Cuff Blood Pressure Position [Left Arm] Sitting Sitting 02 Sat by Pulse Oximetry 97 97 Oxygen Delivery Method Room Air Room Air Orders (Tests/Meds): ED MEDICATIONS Discontinued Medications Generic Name Dose Route Start Last Admin Trade Name Freq PRN Reason Stop Dose Admin Methylprednisolone Sodium Succinate 125 mg 08/23/21 15:11 08/23/21 15:19 Methylprednisolone Sod Succ 125mg Vial IM 08/23/21 15:12 125 mg ONCE ONE Administration - Radiology Data #1 Image(s): L-Spine Image Reviewed: Yes I have reviewed radiologist's interpretation IMPRESSION: Moderate multilevel degenerative changes without acute skeletal pathology. #2 Image(s): Knee Image Reviewed: Yes I have reviewed radiologist's interpretation IMPRESSION: No acute skeletal pathology. Medical Decision Narrative: Patient states that he has taken SoluMedrol in the past but will not take Motrin so he will take Tylenol at home for the pain [facility] [place] HPI - General Stated complaint: back pain Time Seen by Provider: 08/23/21 14:32 Mode of Arrival: Ambulatory Source of Information: Patient, Spouse Limitations: No Limitations Description of Symptoms (Recalled from Triage Doc. by RN): Pt c/o back pain that extends down into left leg. states It's been going on for a while. It just seems to be getting worse. I think he needs more xrays . - History of Present Illness Provider Complaint: Patient states that he has been having lower back pain for about 2 years and feels like it is getting worse and going down left buttock into left knee States that she wants xrays to see if it is getting worse Patient Denies loss of control of bowel or bladder and uses cane to walk - Related Data Home Medications Medication Instructions Recorded Confirmed atorvastatin 80 mg tablet 80 mg PO DAILY 90 Days #90 11/15/17 07/14/20 gabapentin 100 mg capsule 100 mg PO DAILY 30 Days #90 11/15/17 07/14/20 losartan 100 100 mg PO DAILY 90 Days #90 11/15/17 07/14/20 mg-hydrochlorothiazide 25 mg tablet potassium chloride 20 mEq 20 meq PO DAILY 90 Days #180 11/15/17 07/14/20 tablet,extended release(part/cryst) tamsulosin 0.4 mg capsule 0.4 mg PO DAILY 90 Days #90 11/15/17 07/14/20 finasteride 5 mg tablet 5 mg PO DAILY 05/24/19 07/14/20 Allergies Allergy/AdvReac Type Sev
[2021-08-23 15:20] VITALS: BP 125/78; PULSE 91; RESP 18; TEMP 36.9; O2SAT 97
== END 2021-08-23 15:37 | disposition home or self-care (01) ==
PROVIDERS: Emergency Provider Nurse Practitioner; PCP Internal Medicine Adolescent Medicine
DX: M54.42 Lumbago with sciatica, left side (principal); E11.9 Type 2 diabetes mellitus without complications; K21.9 Gastro-esophageal reflux disease without esophagitis; E78.5 Hyperlipidemia, unspecified; I10 Essential (primary) hypertension
CPT/HCPCS: 72100; 73562; 96372; 99212; G0463

== ENCOUNTER → 2021-09-10 09:36 | Outpatient (POV) | payer MEDICARE, SELFPAY ==
[2021-09-10 10:46] VITALS: BP 135/84; PULSE 82; RESP 18; TEMP 36.6; O2SAT 93; BMI 39.5
--- NOTE | 2021-09-10 12:43 | HMH.PMCON ---
Assessment and Plan (1) Degenerative disc disease Status: Chronic Qualifiers: Category: Medical (2) Lumbar radiculopathy Status: Chronic Category: Medical Code(s): M54.16 - Radiculopathy, lumbar region (3) Low back pain Status: Acute Category: Medical Code(s): M54.50 - Low back pain, unspecified - Assessment and plan all Dx Assessment and Plan for all problems:: Imaging: Lumbar X-ray PROCEDURE INFORMATION: Exam: XR Lumbosacral Spine Exam date and time: 08/23/2021 2:29 PM Age: 76 years old Clinical indication: Pain; Lumbago TECHNIQUE: Imaging protocol: XR of the lumbosacral spine. Views: 2 or 3 views. COMPARISON: CR [id number] XR lumbar spine 1V 05/16/2018 10:04 AM FINDINGS: Bones/joints: No acute skeletal pathology. Moderate multilevel degenerative changes of the spine, as manifested by multilevel anterior osteophytes and multilevel decrease in intervertebral disc space. The spinal canal is patent. Diffuse moderate facet joint hypertrophy. No aggressive osseous lesions. Soft tissues: There is no significant soft tissue swelling. Vasculature: The aorta demonstrates moderate atherosclerotic calcification. Other findings: There is no evidence of acutely displaced fractures. There is no evidence of joint dislocation. IMPRESSION: Moderate multilevel degenerative changes without acute skeletal pathology. Lumbar MRI HISTORY: PT states Low back pain, mid back pain, and right leg pain. At times PT states Rt toes numbness and tingling. Symptoms X 1 YR or longer. ITS.REASON: BACK PAIN ORDERING PHYSICIAN: Carlos Eduardo Goss MD PATIENT AGE: 72 years Comparison: MRI 07/16/13. TECHNIQUE: Standard multiplanar multiecho sequences are performed without contrast. 3-D MIP and myelographic images are also rendered and reviewed FINDINGS: There is normal alignment. The spinal cord ends at the L1 level. Multilevel degenerative disc disease with bulging disc and canal stenosis is noted as outlined below. T11-12: Degenerative disc disease with bulging disc and minimal left paracentral disc protrusion with borderline narrowing of the canal. There is severe bilateral lateral recess narrowing and moderate bilateral foraminal narrowing. Lateral recess narrowing is slightly greater on the left secondary to the mild left paracentral disc protrusion. These findings have progressed since the previous exam. T12-L1: Mild facet and ligamentum flavum hypertrophy. L1-L2: Degenerative disc disease with bulging disc with 3 mm anterolisthesis of L1. Moderate facet and ligamentum flavum hypertrophy with moderate to severe bilateral lateral recess narrowing and moderate bilateral foraminal narrowing. Prominent facet hypertrophic changes present on the left at this level with narrowing of the canal. There is transverse narrowing of the canal. The left-sided ligamentum and facet hypertrophy has progressed since the previous exam. L2-L3: Degenerative disc disease with bulging disc along with facet and ligamentum flavum hypertrophy L3-L4: Degenerative disc disease with bulging disc and mild endplate hypertrophic change with moderate to severe facet and ligamentum flavum hypertrophy. There is transverse narrowing of the canal at this level. The narrowing of the canal slightly worse compared to the previous exam. L4-5: Degenerative disc disease with bulging disc with severe facet and ligamentum flavum hypertrophy. There is severe bilateral lateral recess narrowing and severe canal stenosis at this level which has progressed since the previous exam moderate right-sided foraminal narrowing also noted. L5-S1: Degenerative disc disease with bulging disc along with facet and ligamentum flavum hypertrophy with moderate to severe bilateral foraminal narrowing left greater than right. No extruded herniated disc are evident. IMPRESSION: Abnorma
== END ==
PROVIDERS: Visit Provider Student in an Organized Health Care Education/Training Program
DX: M51.16 Intervertebral disc disorders with radiculopathy, lumbar region (principal); M19.90 Unspecified osteoarthritis, unspecified site
CPT/HCPCS: 99202; G0463

== ENCOUNTER 2021-09-18 09:11 | Day surgery (SDC) | payer MEDICARE, SELFPAY ==
[2021-09-18 09:31] VITALS: BP 137/70; PULSE 80; RESP 20; TEMP 36.4; O2SAT 95; BMI 39.5
[2021-09-18 09:49] VITALS: BP 137/66; PULSE 100; RESP 20
--- NOTE | 2021-09-18 10:01 | P.PCN_ITS ---
- Procedure Date: 09/18/21 Time: 10:01 Anesthesiologist:: Carlos Eduardo Goss MD Complications:: None Pre-procedure Diagnosis:: Degenerative disc disease of lumbar spine with lumbar radiculopathy symptoms Post-procedure Diagnosis:: Same Indications for Procedure:: This patient is a pleasant 76-year-old white male who we are treating for low back pain with lumbar radiculopathy symptoms. He has increasing pain in his back radiating into his hips and legs. He has had a previous minimally invasive lumbar decompression and epidural steroid injections in the past which have helped significantly. His pain is starting to return. We will plan on repeat lumbar epidural steroid injection under fluoroscopy today. Procedure Details:: Informed consent was obtained and the risk and benefits of the procedure was explained to the patient. The patient was taken to the procedure room. The patient was placed prone on the procedure table. The patient was prepped and dr aped in sterile fashion. C-arm fluoroscopy was used to view the lumbar spine. Skin and subcutaneous tissues were anesthetized using lidocaine. I placed an 18-gauge epidural needle and advanced into the L4-L5 interspace using fluoroscopic guidance and [id number] to air. After confirmation of needle placement in the epidural space with dye I injected 2 mL of lidocaine 1.5% with Depo-Medrol 80 mg. Patient tolerated the procedure well with no complications. Plan and Disposition:: We will follow-up with this patient in 2 weeks. Will reevaluate his symptoms at that time.
[2021-09-18 10:04] VITALS: BP 107/70; PULSE 83; RESP 18; O2SAT 98
== END 2021-09-18 10:05 | disposition home or self-care (01) ==
LOC: SC.PAINP 09:13
PROVIDERS: PCP Internal Medicine Adolescent Medicine; Visit Provider Anesthesiology
DX: M51.16 Intervertebral disc disorders with radiculopathy, lumbar region (principal)
CPT/HCPCS: 62323; J1040; Q9966

== ENCOUNTER 2021-09-29 11:03 | Emergency (ER) | payer MEDICARE, SELFPAY ==
[2021-09-29 11:30] VITALS: BP 103/66; PULSE 70; RESP 18; TEMP 36.2; O2SAT 95; BMI 39.9
--- NOTE | 2021-09-29 12:17 | HMH.EDUTC ---
[facility] Dis[place] Clinical Impression: Low back pain Qualifiers: Chronicity: unspecified Back pain laterality: unspecified Sciatica presence: without sciatica Qualified Code(s): M54.50 - Low back pain, unspecified Disposition: Home, Self-Care Condition on Discharge: Good Additional Instructions: Follow up with Dr Goss on Tuesday as scheduled if pain gets worse notify the office Return if needed Moist heat may help with pain Straight to ER if any life threatening symptoms Referrals: Aaron Peck MD [Primary Care Provider] - As needed Medical Decision Making - Gage Inquiry Pt receiving controlled substance: No Gage was queried for this patient: No Vital Signs: 09/29/21 11:30 09/29/21 12:40 Temperature 97.1 F L 97.1 F L Temperature Source Oral Pulse Rate 70 Pulse Rate [Right Brachial] 70 Respiratory Rate 18 18 Blood Pressure 103/66 L Blood Pressure [Right Arm] 103/66 L Blood Pressure Mean [Right Arm] 78 Blood Pressure Source [Right Arm] Automatic Cuff Blood Pressure Position [Right Arm] Sitting 02 Sat by Pulse Oximetry 95 Oxygen Delivery Method Room Air Orders (Tests/Meds): ED MEDICATIONS Discontinued Medications Generic Name Dose Route Start Last Admin Trade Name Freq PRN Reason Stop Dose Admin Methylprednisolone Sodium Succinate 125 mg 09/29/21 12:25 09/29/21 12:35 Methylprednisolone Sod Succ 125mg Vial IM 09/29/21 12:26 125 mg ONCE ONE Administration Medical Decision Narrative: Spoke with Dr Goss office and discussed treatment will give Solu Medrol in [facility] today as patient reports it did help with pain until his appointment on Tuesday with Dr Goss for further treatment and he will call office if symptoms worsen Discussed xray and patient declined [facility] HPI - General Stated complaint: back pain Time Seen by Provider: 09/29/21 12:17 Mode of Arrival: Ambulatory Source of Information: Patient Limitations: No Limitations Description of Symptoms (Recalled from Triage Doc. by RN): PATIENT C/O LOWER BACK PAIN THAT IS WORSE WITH MOVEMENT X 2 WEEKS. FAMILY STATES THAT PAIN GOT WORSE AFTER RECEIVING SHOTS FOR HIS BACK PAIN HEENT Symptoms (Recalled from RN notes): No Resp Symptoms (Recalled from RN notes): No Skin Symptoms (Recalled from RN notes): No MS Symptoms (Recalled from RN notes): Yes Functional Status (Recalled from RN notes): WNL - History of Present Illness Provider Complaint: Patient states he has chronic back pain and recently seen Dr Goss States that he was seen in [facility] a few weeks ago and got an xray and steriod shot and it helped him with his pain States that he then seen pain management and was prescribed Tramadol but he is out of it and not suppose to see Dr Goss until Tuesday wanting to get another steriod shot to get him through Denies new injury - Related Data Home Medications Medication Instructions Recorded Confirmed atorvastatin 80 mg tablet 80 mg PO DAILY 90 Days #90 11/15/17 09/18/21 losartan 100 100 mg PO DAILY 90 Days #90 11/15/17 09/18/21 mg-hydrochlorothiazide 25 mg tablet potassium chloride 20 mEq 20 meq PO DAILY 90 Days #180 11/15/17 09/18/21 tablet,extended release(part/cryst) tamsulosin 0.4 mg capsule 0.4 mg PO DAILY 90 Days #90 11/15/17 09/18/21 finasteride 5 mg tablet 5 mg PO DAILY 05/24/19 09/18/21 aspirin 81 mg tablet,delayed 81 mg PO DAILY 08/27/21 09/18/21 release gabapentin 100 mg capsule 200 mg PO TID 30 Days #180 cap 08/27/21 09/18/21 Tramadol HCl [Tramadol 50mg 50 mg PO BID 09/18/21 09/18/21 Tab] Allergies Allergy/AdvReac Type Severity Reaction Status Date / Time codeine Allergy Unknown Verified 09/18/21 09:31 Penicillins Allergy Unknown Verified 09/18/21 09:31 - Worker's Comp Is this a Worker's Comp case?: No [facility] History - Hepatitis A Screen Attestation statement:: This patient has been screened for Hepatitis A risk factors. I have reviewed the patient's past medical history: Yes Medical Hi
[2021-09-29 12:40] VITALS: BP 103/66; PULSE 70; RESP 18; TEMP 36.2; O2SAT 95
== END 2021-09-29 12:55 | disposition home or self-care (01) ==
PROVIDERS: Emergency Provider Nurse Practitioner; PCP Internal Medicine Adolescent Medicine
DX: M54.50 Low back pain, unspecified (principal)
CPT/HCPCS: 96372; 99212; G0463

== ENCOUNTER → 2021-11-09 08:31 | Outpatient (POV) | payer MEDICARE, SELFPAY ==
[2021-11-09 09:05] VITALS: BP 141/75; PULSE 94; RESP 20; TEMP 36.4; O2SAT 96; BMI 39.2
--- NOTE | 2021-11-09 09:09 | HMH.PAINSOAP ---
[facility] Pain Management SOAP Note Subjective:: Patient is a pleasant 76-year-old male that presents today for follow-up from a lumbar epidural steroid injection at L4-L5 on 09/18/2021. We are currently treating the patient for degenerative disc disease of lumbar spine with lumbar radiculopathy symptoms. Patient states he got a little more than 24 hours relief from this injection. He stated he was able to move around better than he had been. Today he rates his pain a 4 out of 10. He states his pain is all in his low back that radiates into his bilateral extremities and describes it as a achy, throbbing sensation that is worse with activity. Patient denies any new trauma or injury to the site. He denies any change to the location or type of pain he experiences. Patient has been to the ER twice since this injection due to his low back pain. Patient stated that he was given a steroid injection that did give some relief. Patient states he did get significant improvement with tramadol 50 mg twice daily. He stated he has not had this prescription for the last month though. Patient is currently managed with gabapentin 100 mg 6 times a day that is written by Dr. Peck. Patient denies any side effects with this medication. He states this does adequately help manage his pain. Patient has had a recent x-ray that did show multilevel degenerative disc disease of his lumbar spine. Patient states it has been a little while since he has had a MRI of his lumbar spine. Patient has had epidural steroid injections in the past and a MILD procedure that gave 3 years worth of relief of pain symptoms. Patient also has a knot on his neck that he states causes him pain. Patient states no trauma to this area in the past. His Gage is [phone]. It has been reviewed and appropriate. Review of Systems: General: No recent weight changes, no fever, no sleep disturbances Respiratory: No cough, no shortness of air, no recurring pulmonary infections Cardiovascular/peripheral vascular: No chest pain, no palpitations, no edema, no shortness of breath Gastrointestinal: No new onset incontinence, normal bowel movements reported Genitourinary: No new onset incontinence Musculoskeletal: Low back pain, bilateral leg pain, neck pain Psychiatric: [Normal mood/affect] Neurological: [Denies weakness in extremities], [denies balance issues] Objective:: Physical Exam: General: Alert and oriented x3, no acute distress, pleasant and cooperative Lungs: Respirations even and unlabored, symmetrical chest expansion Eyes: PERRL Musculoskeletal: Flexion and extension of cervical, lumbar [spine] somewhat guarded secondary to pain, [antalgic gait noted] Neurological: Speech clear, no gross sensory deficit PROCEDURE INFORMATION: Exam: XR Lumbosacral Spine Exam date and time: 08/23/2021 2:29 PM Age: 76 years old Clinical indication: Pain; Lumbago TECHNIQUE: Imaging protocol: XR of the lumbosacral spine. Views: 2 or 3 views. COMPARISON: CR [id number] XR lumbar spine 1V 05/16/2018 10:04 AM FINDINGS: Bones/joints: No acute skeletal pathology. Moderate multilevel degenerative changes of the spine, as manifested by multilevel anterior osteophytes and multilevel decrease in intervertebral disc space. The spinal canal is patent. Diffuse moderate facet joint hypertrophy. No aggressive osseous lesions. Soft tissues: There is no significant soft tissue swelling. Vasculature: The aorta demonstrates moderate atherosclerotic calcification. Other findings: There is no evidence of acutely displaced fractures. There is no evidence of joint dislocation. IMPRESSION: Moderate multilevel degenerative changes without acute skeletal pathology. lumbar spine wo con, MR 3-d myelogram/MRCP HISTORY: PT states Low back pain, mid back pain, and right leg pain. At times PT states Rt toes numbness
== END ==
PROVIDERS: PCP Internal Medicine Adolescent Medicine; Visit Provider Nurse Practitioner Family
DX: M51.16 Intervertebral disc disorders with radiculopathy, lumbar region (principal); M54.2 Cervicalgia
CPT/HCPCS: 99212; G0463

== ENCOUNTER → 2021-11-13 08:23 | Outpatient (CLI) | payer MEDICARE, SELFPAY ==
--- NOTE | 2021-11-13 | MR_ITS ---
FINAL REPORT CLINICAL HISTORY: NKI. CHRONIC LBP. NUMBNESS TINGLING AND PAIN RADATE DOWN BILATERAL EXTREMITIES. FINDINGS: Multiplanar MR imaging of the lumbar spine was performed without contrast. On the sagittal T2-weighted images, disc degeneration is seen throughout. There are endplate changes at several levels. There is mild anterolisthesis of L4 on L5. There is no evidence of fracture. The conus has an unremarkable appearance. L1-2: There is an annular bulge, facet arthropathy and vertebral osteophytes. There is a left foraminal disc protrusion. There is mild right and moderate left neural foraminal narrowing. There is mild central canal stenosis with an AP thecal sac diameter of 7 mm. L2-3: There is an annular bulge, facet arthropathy and vertebral osteophytes. There is moderate bilateral neural foraminal narrowing. There is mild central canal stenosis with an AP thecal sac diameter of 8 mm. L3-4: There is an annular bulge, facet arthropathy and vertebral osteophytes. There is a small central disc protrusion. There is moderate bilateral neural foraminal narrowing. There is moderate central canal stenosis with an AP thecal sac diameter of 6 mm. L4-5: There is an annular bulge, facet arthropathy and vertebral osteophytes. There is a left foraminal disc protrusion with left L5 nerve root impingement. There is severe bilateral neural foraminal narrowing. There is moderate central canal stenosis with an AP thecal sac diameter of 6 mm. L5-S1: There is an annular bulge, facet arthropathy and vertebral osteophytes. There is moderate bilateral neural foraminal narrowing. There is mild spurring of the SI joints. IMPRESSION: Multilevel degenerative disc disease with areas of neural foraminal narrowing and central canal stenosis. Left L5 nerve root impingement at L4-L5. Disc protrusions at L1-L2, L3-L4, and L4-L5. Reviewed, Interpreted and Dictated by Chun Nieves III, MD Transcribed by Bradley Wiseman Authenticated and [facility]
--- NOTE | 2021-11-13 | MR_ITS ---
FINAL REPORT CLINICAL HISTORY: NKI. CHRONIC NECK PAIN. NUMBNESS TINGLING AND PAIN RADATE DOWN BILATERAL EXTREMITIES. FINDINGS: Multiplanar MR imaging of the cervical spine was performed without contrast. Motion on many of the images decreases exam sensitivity. On the sagittal T2-weighted images, disc degeneration is seen at multiple levels. There is no evidence of fracture. There is mild kyphosis centered at C5-C6. The vertebral alignment is normal. The cervical spinal cord has an unremarkable appearance without evidence of mass, edema or syrinx. The cervicomedullary junction is normal. C2-3: There are uncovertebral osteophytes with mild left neural foraminal narrowing. C3-4: There is an annular bulge with left uncovertebral osteophytes. There is a small right paracentral disc protrusion. There is mild right and severe left neural foraminal narrowing. C4-5: There is an annular bulge with mild bilateral neural foraminal narrowing. C5-6: There is a disc osteophyte complex. A left paracentral disc protrusion indents the thecal sac. There is severe bilateral neural foraminal narrowing. There is mild central canal stenosis with an AP thecal sac diameter of 9 mm. C6-7: There is a disc osteophyte complex. There is severe right and mild left neural foraminal narrowing. C7-T1: There is an annular bulge with uncovertebral osteophytes. There is moderate right and severe left neural foraminal narrowing. IMPRESSION: Multilevel degenerative disc disease with areas of central canal stenosis and neural foraminal narrowing. Disc protrusions at C3-C4 and C5-C6. Reviewed, Interpreted and Dictated by Chun Nieves III, MD Transcribed by Bradley Wiseman Authenticated and [facility][1]
== END ==
PROVIDERS: PCP Internal Medicine Adolescent Medicine; Visit Provider Nurse Practitioner Family
DX: M54.2 Cervicalgia (principal); M54.50 Low back pain, unspecified
CPT/HCPCS: 72141; 72148; 76376

== ENCOUNTER 2021-11-30 07:26 | Observation (INO) | payer MEDICARE, SELFPAY ==
[2021-11-30] VITALS (21 sets, daily range): BP systolic 109–164; BP diastolic 61–90; PULSE 57–100; RESP 15–20; TEMP 36.6–37.2; O2SAT 93–99; BMI 39.5; BMI 37.9
--- NOTE | 2021-11-30 07:37 | ECG_ITS ---
APPROVED REPORT Exam: Resting ECG HR:75 bpm ECG Measurements Heart Rate 75 AXES QRSd 158 QRS -84 QT 415 T 33 QTc 444 Conclusion ATRIAL FIBRILLATION WITH ABERRANT CONDUCTION OR VENTRICULAR PREMATURE COMPLEXES RIGHT BUNDLE BRANCH BLOCK [120+ ms QRS DURATION, UPRIGHT V1, 40+ ms S IN I/aVL/V4/V5/V6] ANTERIOR MYOCARDIAL INFARCTION , PROBABLY RECENT [40+ ms Q WAVE AND/OR ST/T ABNORMALITY IN V3/V4] INFERIOR MYOCARDIAL INFARCTION , POSSIBLY ACUTE [40+ ms Q WAVE AND/OR ST/T ABNORMALITY IN II/aVF] ACUTE [place] UNCONFIRMED REPORT Electronically signed by : Aaron Peck MD 11/30/2021 17:15:40
[2021-11-30 07:52] LABS: POC Glucose,Bedside 136 (70-110)
--- NOTE | 2021-11-30 08:01 | PC.NURSE ---
obtained EKG and vitals. Lala CONWAY placed IV access and obtained blood
[2021-11-30 08:06] LABS: Basophils # 0.1 K/mm3 (0-0.2); Basophils % 0.7 % (0.1-2.0); Eosinophils # 0.1 K/mm3 (0.0-0.4); Eosinophils % 1.1 % (0.1-12.0); Hematocrit 48.3 % (42.0-52.0); Hemoglobin 15.1 g/dL (14.1-18.0); Lymphocytes # 2.3 K/mm3 (0.7-4.5); Lymphocytes % 30.5 % (10-50); Mean Corpuscular HGB Conc 31.2 g/dL (31.8-35.4); Mean Corpuscular Hemoglobin 30.8 pg (27.0-31.2); Mean Corpuscular Volume 98.8 fl (80-94); Mean Platelet Volume 8.4 fl (7.4-10.4); Monocytes # 0.4 K/mm3 (0.1-1.0); Monocytes % 5.5 % (1.7-9.3); Neutrophils # 4.7 K/mm3 (1.8-7.8); Neutrophils % 62.2 % (37.0-80.0); Platelet Count 224 K/mm3 (142-424); Red Blood Count 4.88 M/mm3 (4.60-6.20); Red Cell Distribution Width 13.8 % (11.5-17.5); White Blood Count 7.6 K/mm3 (4.8-10.8)
--- NOTE | 2021-11-30 08:07 | HMH.EDDIZZ ---
Discharge Plan Disposition Patient Disposition: Admitted As Inpatient Condition: Good Prescriptions Prescriptions: No Action atorvastatin 80 mg tablet 80 mg PO DAILY 90 Days Qty: 90 losartan-hydrochlorothiazide 100-25 mg tablet 100 mg PO DAILY 90 Days Qty: 90 potassium chloride 20 mEq tablet,ER particles/crystals 20 meq PO DAILY 90 Days Qty: 180 tamsulosin 0.4 mg capsule 0.4 mg PO DAILY 90 Days Qty: 90 gabapentin 100 mg capsule 200 mg PO TID 30 Days Qty: 180 finasteride 5 mg tablet 5 mg PO DAILY aspirin 81 mg tablet,delayed release (DR/EC) 81 mg PO DAILY tramadol 50 MG tablet 50 mg PO BID 30 Days Qty: 60 0RF tramadol 50 MG tablet 50 mg PO BID Rx Instructions: Take this medication as needed for pain. Referrals Follow up/Referrals: Aaron Peck MD [Primary Care Provider] - See instructions Clinical Impressions Clinical Impression: Atrial fibrillation, new onset, Acute hypokalemia Discharge ED Provider: Catarino Ta HPI General Chief Complaint: Dizziness Stated Complaint: dizzy Time Seen by Provider: 11/30/21 08:07 Mode of Arrival: Wheelchair Limitations: No Limitations Description of Symptoms (Recalled from ER Triage Doc. by RN): states that symptoms appeared upon waking this AM. C/O dizziness, sweating, shaking, vomiting History of Present Illness HPI Narrative: 76-year-old male, past medical history of hyperlipidemia, hypertension, low back pain, prostatic hypertrophy on daily tamsulosin. He presents with complaint of dizziness described as room spinning associated with diaphoresis, shaking and emesis that started upon waking and getting out of bed this AM. He denies any similar prior episodes, denies any chest pain, palpitations denies sensation of lightheadedness, or shortness of breath. He states symptoms are much improved right now while in a sitting position, he thought that they were exacerbated with head movement and going to standing position. No treatments prior to arrival. Related Data Home Medications Medication Instructions Recorded Confirmed atorvastatin 80 mg tablet 80 mg PO DAILY Cholesterol 90 days 18 11/09/21 ##90 losartan 100 100 mg PO DAILY High blood 11/15/17 11/09/21 mg-hydrochlorothiazide 25 mg tablet pressure 90 days ##90 potassium chloride 20 mEq 20 meq PO DAILY Supplement 90 days 11/15/17 11/09/21 tablet,extended release(part/cryst) ##180 tamsulosin 0.4 mg capsule 0.4 mg PO DAILY Supplement 90 days 11/15/17 11/09/21 ##90 finasteride 5 mg tablet 5 mg PO DAILY . 05/24/19 11/09/21 aspirin 81 mg tablet,delayed 81 mg PO DAILY . 08/27/21 11/09/21 release gabapentin 100 mg capsule 200 mg PO TID Pain 30 days #180 08/27/21 11/09/21 caps tramadol 50 mg tablet 50 mg PO BID Pain 09/18/21 11/09/21 Previous Rx's Medication Instructions Recorded tramadol 50 mg tablet 50 mg PO BID 30 days #60 tabs 11/09/21 Allergies Allergy/AdvReac Type Severity Reaction Status Date / Time codeine Allergy Unknown Verified 09/18/21 09:31 Penicillins Allergy Unknown Verified 09/18/21 09:31 [facility] Medical History COPD (chronic obstructive pulmonary disease) History of kidney stones Hyperlipidemia Hypertension Social History Smoking Status: Never smoker alcohol intake: never substance use type: denies use current occupational status: other Travel in the last 8 weeks: None household members: spouse and children housing: house current occupational exposures/hazards: No caffeine: Yes ROS Obtained: Yes Systems reviewed as appropriate & no additional complaints except as documented Constitutional Constitutional: Reports excessive sweating and Reports fatigue Eyes Eyes: Reports system reviewed and no additional complaints, except as documented ENT Ears, Nose, Mouth, an
[2021-11-30 08:10] LABS: Alanine Aminotransferase 15 U/L (12-78); Albumin Level 4.1 g/dl (3.5-5.0); Albumin/Globulin Ratio 1.6 (1.1-1.8); Alkaline Phosphatase 86 U/L (38-126); Anion Gap 10.4 mEq/L (5-15); Aspartate Amino Transferase 22 U/L (17-59); Bilirubin,Total 0.5 mg/dl (0.2-1.3); Blood Urea Nitrogen 18 mg/dl (9-20); Calcium 10.6 mg/dl (8.4-10.2); Carbon Dioxide 28 mmol/L (22.0-30.0); Chloride 105 mmol/L (98-107); Creatinine Clearance Estimated 87 mL/min (50-200); Estimated Glomerular Filt Rate 65 ml/min (>60); GFR (African American) 78 ML/MIN (>60); Globulin 2.6 g/dL (1.3-3.2); Glucose 153 mg/dl (74-100); Potassium 3.4 mmoL/L (3.5-5.1); Sodium 140 mmol/L (136-145); Total Protein,Serum 6.7 g/dl (6.3-8.2)
[2021-11-30 08:11] LABS: Lactic Acid 1.1 mmol/L (0.7-2.1)
[2021-11-30 08:17] LABS: Coronavirus 19, PCR Not Detected (NotDetected); Influenza A, PCR Not Detected (NotDetected); Influenza B, PCR Not Detected (NotDetected)
[2021-11-30 08:23] LABS: Troponin I < 0.01 ng/ml (0.00-0.034)
--- NOTE | 2021-11-30 09:00 | ECG_ITS ---
APPROVED REPORT Exam: Resting ECG HR:80 bpm ECG Measurements Heart Rate 80 AXES QRSd 157 QRS -80 QT 422 T 45 QTc 458 Conclusion ATRIAL FIBRILLATION WITH ABERRANT CONDUCTION OR VENTRICULAR PREMATURE COMPLEXES RIGHT BUNDLE BRANCH BLOCK [120+ ms QRS DURATION, UPRIGHT V1, 40+ ms S IN I/aVL/V4/V5/V6] ANTERIOR MYOCARDIAL INFARCTION , PROBABLY RECENT [40+ ms Q WAVE AND/OR ST/T ABNORMALITY IN V3/V4] INFERIOR MYOCARDIAL INFARCTION , POSSIBLY ACUTE [40+ ms Q WAVE AND/OR ST/T ABNORMALITY IN II/aVF] ACUTE [place] UNCONFIRMED REPORT Electronically signed by : Aaron Peck MD 11/30/2021 17:15:30
--- NOTE | 2021-11-30 09:03 | PC.NURSE ---
obtained 2nd EKG
--- NOTE | 2021-11-30 09:11 | PC.NURSE ---
placed on heart monitor
--- NOTE | 2021-11-30 10:24 | PC.NURSE ---
Pt admitted and will be boarding in the ED until a room is available on Med/Surg.
[2021-11-30 11:22] LABS: Troponin I < 0.01 ng/ml (0.00-0.034)
--- NOTE | 2021-11-30 13:45 | PC.NURSE ---
report called to floor
--- NOTE | 2021-11-30 13:52 | PC.NURSE ---
patient arrived to floor by stretcher from ED
--- NOTE | 2021-11-30 22:08 | ECG_ITS ---
APPROVED REPORT Exam: Resting ECG HR:83 bpm ECG Measurements Heart Rate 83 AXES QRSd 148 QRS -79 QT 384 T 44 QTc 423 Conclusion ATRIAL FIBRILLATION RIGHT BUNDLE BRANCH BLOCK [120+ ms QRS DURATION, UPRIGHT V1, 40+ ms S IN I/aVL/V4/V5/V6] ANTERIOR MYOCARDIAL INFARCTION , PROBABLY RECENT [40+ ms Q WAVE AND/OR ST/T ABNORMALITY IN V3/V4] INFERIOR MYOCARDIAL INFARCTION , OF INDETERMINATE AGE [40+ ms Q WAVE AND/OR ST/T ABNORMALITY IN II/aVF] ACUTE [place] UNCONFIRMED REPORT Electronically signed by : Aaron Peck MD 12/01/2021 13:48:22
[2021-12-01] VITALS (21 sets, daily range): BP systolic 93–147; BP diastolic 45–100; PULSE 53–90; RESP 15–20; TEMP 36.5–37.2; O2SAT 91–98; BMI 37.8
--- NOTE | 2021-12-01 | IR_ITS ---
APPROVED REPORT Patient Location: OutpatientInpatient PROCEDURES Left heart catheterization Left ventriculogram Selective coronary angiogram Drug-eluting stent deployment to the proximal and mid LAD in a contiguous manner INDICATION Unstable angina, Coronary artery disease Informed consent was obtained prior to the procedure. COMPLICATIONS NONE Estimated Blood Loss: LESS THAN 10 ML TECHNIQUE One percent lidocaine used to anesthetize the right anterior aspect of the wrist. The right radial artery was accessed via the Seldinger technique. A 6 Macedonian sheath was placed in the right radial artery. 2.5 mg of verapamil, 800 mcg of nitroglycerin, 1mg Lidocaine and 5000 U Heparin were given through the arterial sheath. The papa catheter was also used to perform left heart catheterization, left ventriculogram and selective coronary angiogram. At the end the diagnostic angiogram therapeutic heparin was administered and a wire was placed into the ramus intermedius followed by an additional wire in the LAD. 3.5 x 18 mm resolute Triston stent was deployed at 20 keke in the proximal LAD reducing the critical stenosis. An additional 3.5 x 18 mm resolute Triston stent was then placed distal to the first stent yet still overlapping it and deployed at 20 keke. The balloon was brought back and deployed at 24 keke on 2 occasions both the mesh the stents and 2 proximally post dilate the first stent. After achieving excellent angiographic results the apparatus was removed the sheath was removed and hemostasis was achieved using TR banding patient was transferred to the postop putting in stable condition. ANTONIO-3 flow was present before and after the procedure ANGIOGRAPHIC RESULTS The left main artery Normal The left anterior descending artery Has a severe proximal critical greater than 90% stenosis followed by an additional mid vessel 70% stenosis followed by an additional 30 to 40% stenosis The circumflex artery Gives rise to a moderate sized ramus intermedius which has a proximal 60 to 70% eccentric stenosis. The circumflex artery itself is large and has mild luminal irregularities nothing greater than 10% The right coronary artery Is a codominant vessel and has mild proximal 10 to 20% stenoses with mid vessel 30 to 40% stenosis The HUI ventriculogram reveals Dilated ventricle with anterior wall hypokinesis estimate ejection fraction 45 to 50% The left ventricular end-diastolic pressure 20 mmHg IMPRESSION Critical proximal LAD disease as described above Successful stenting of the proximal to mid LAD with 2 contiguous drug-eluting stents reducing the severe stenosis to 0% Persistent moderate to severe stenosis and a moderate sized ramus intermedius Reduced ejection fraction with regional wall motion abnormality Mild elevated elevated PA PLAN 1. Plavix 75 mg daily plus aspirin 81 mg a day combined with anticoagulation for atrial fibrillation. After 1 month of triple therapy aspirin can be discontinued 2. LDL less than 55 to be achieved with high intensity statin 3. Cardiac rehabilitation 4. Avoidance of tobacco products 5. Recommend exercise Myoview or Lexiscan Myoview in 6 weeks to determine if the ramus intermedius has ischemic consequences Electronically signed by : Venancio Romo MD 12/01/2021 13:12:25
--- NOTE | 2021-12-01 04:15 | PC.NURSE ---
Addendum entered by Jolynn Vail RN 12/01/21 05:14: PT HAS COMPLAINED X1 THIS SHIFT OF DIZZINESS. Original Note: NO ACUTE CHANGES FROM PRIOR ASSESSMENT.REMAINS ALERT AND ORIENTED X4. PT HAS RESTED INTERMITTENTLY THIS SHIFT. LUNG SOUNDS ARE CLEAR AND PT HAS NOT REQUIRED O2 THERAPY. TURNING IN BED INDEPENDENTLY. HAS BEEN UP TO THE SIDE OF THE BED TO USE THE URINAL. REMAINS A-FIB ON TELE. REPEAT EKG OBTAINED AT THE BEGINNING OF SHIFT DUE TO TELE TRIP APPEARING TO HAVE A RHYTHM CHANGE. ER MD JONES STATED NO CHANGES SINCE PREVIOUS EKG. PT HAS NOT C/O SOA, N/V/D. CALL [facility] WITHIN REACH. BED ALARM IN PLACE FOR PT SAFETY.
[2021-12-01 07:02] LABS: Basophils # 0.1 K/mm3 (0-0.2); Basophils % 0.6 % (0.1-2.0); Eosinophils # 0.1 K/mm3 (0.0-0.4); Eosinophils % 0.7 % (0.1-12.0); Hemoglobin 14.4 g/dL (14.1-18.0); Lymphocytes # 1.9 K/mm3 (0.7-4.5); Lymphocytes % 24.8 % (10-50); Mean Corpuscular HGB Conc 30.6 g/dL (31.8-35.4); Mean Corpuscular Hemoglobin 30.5 pg (27.0-31.2); Mean Corpuscular Volume 99.9 fl (80-94); Mean Platelet Volume 8.4 fl (7.4-10.4); Monocytes # 0.5 K/mm3 (0.1-1.0); Monocytes % 6.6 % (1.7-9.3); Neutrophils # 5.2 K/mm3 (1.8-7.8); Neutrophils % 67.3 % (37.0-80.0); Platelet Count 236 K/mm3 (142-424); Red Cell Distribution Width 13.9 % (11.5-17.5); White Blood Count 7.7 K/mm3 (4.8-10.8)
[2021-12-01 07:12] LABS: Alanine Aminotransferase 13 U/L (12-78); Albumin Level 3.6 g/dl (3.5-5.0); Albumin/Globulin Ratio 1.5 (1.1-1.8); Alkaline Phosphatase 68 U/L (38-126); Aspartate Amino Transferase 21 U/L (17-59); Bilirubin,Total 0.4 mg/dl (0.2-1.3); Blood Urea Nitrogen 16 mg/dl (9-20); Calcium 10.5 mg/dl (8.4-10.2); Carbon Dioxide 27 mmol/L (22.0-30.0); Chloride 109 mmol/L (98-107); Creatinine Clearance Estimated 76 mL/min (50-200); Estimated Glomerular Filt Rate 59 ml/min (>60); GFR (African American) 71 ML/MIN (>60); Globulin 2.4 g/dL (1.3-3.2); Glucose 116 mg/dl (74-100); Magnesium 1.5 mg/dl (1.6-2.3); Sodium 141 mmol/L (136-145)
--- NOTE | 2021-12-01 07:25 | P.CONPHA_ITS ---
[facility] Pharmacy VTE Monitoring Patient Demographics Admission date: 11/30/21 Report Date: 12/01/21 Time: 07:25 Patient Allergies codeine Allergy (Unknown, Verified 09/18/21 09:31) Penicillins Allergy (Unknown, Verified 09/18/21 09:31) Height: 1.68 m Weight: 106.594 kg Current Active Problems (Updated 11/30/21 @ 14:12 by Tad Corbett RN) Atrial fibrillation, new onset (Acute) Acute hypokalemia (Acute) VTE Risk Labs: VTE Related Lab Results Hgb 14.4 g/dL (14.1-18.0) 12/01/21 06:12 Hct 47.0 % (42.0-52.0) 12/01/21 06:12 Plt Count 236 K/mm3 (142-424) 12/01/21 06:12 BUN 16 mg/dl (9-20) 12/01/21 06:12 Creatinine 1.20 mg/dl (0.66-1.25) 12/01/21 06:12 Estimated Creat Clear 76 mL/min (50-200) 12/01/21 06:12 Clinical Trial Participant: No Prophylaxis VTE Prophylaxis Ordered?: Yes Types of VTE Prophylaxis: TEDS Knee High and Pharmacological Pharmacologic Type: Enoxaparin
--- NOTE | 2021-12-01 09:22 | CT_ITS ---
FINAL REPORT CLINICAL HISTORY: memory deficit, new a. fib, possible TIA COMPARISON: MRI brain dated August 11, 2020 FINDINGS: Axial images of the head were obtained without contrast. Coronal reformatted images were also obtained. This study was performed with techniques to keep radiation doses as low as reasonably achievable (ALARA). Individualized dose reduction techniques using automated exposure control or adjustment of mA and/or kV according to the patient''s size were employed. There is generalized age-appropriate atrophy. Periventricular low-attenuation areas are seen consistent with mild chronic ischemic changes. There is no evidence of intracranial hemorrhage or mass. There is no evidence of acute infarct. There is no evidence of shift of the midline structures. No skull abnormality is seen on the bone window images. IMPRESSION: Atrophy and mild periventricular chronic ischemic changes. No acute intracranial abnormality identified. Reviewed, Interpreted and Dictated by Chun Nieves III, MD Transcribed by Bradley Wiseman Authenticated and [facility]
--- NOTE | 2021-12-01 09:25 | EXP.CARD.CON ---
History of Present Illness History of Present Illness Consult date: 12/01/21 Requesting physician: Aaron Peck Consult reason: atrial fibrillation Chief complaint: chest pain, palpitations, new onset a. fib, abnormal EKG History of present illness: 76-year-old white male with history of hypertension, hyperlipidemia, remote tobacco use and prior nonobstructive coronary artery disease presented to the emergency department for a 2-week history of palpitations, dizziness and brief episodes of decreased vision. Patient was found to be in atrial fibrillation felt to be relatively new onset. He describes an episode 2 weeks ago of significant GERD symptoms that last for few minutes. He denies any significant GI issues since then. He does have some shortness of breath with activity but is a previous heavy smoker (2.5 packs/day for approximately 30 years). He relates episodes of chest pressure that starts in his left side of his chest and then radiates up toward the head with some associated visual disturbances lasting a couple of seconds. He denies any syncopal episodes. The relates recent work-up for dementia last year under Dr. Peck's care. The is concerned that he may have had a mini stroke or advancing dementia due to his increased forgetfulness since that time. In the ER yesterday patient was noted to be in atrial fibrillation with a controlled ventricular rate. EKG also showed right bundle branch block with no old EKGs for comparison. Cardiology consulted for evaluation and recommendations. Patient is on aspirin and statin therapy at home. He is not on any rate control medication. [facility] Medical History (Updated 12/01/21 @ 15:06 by LB Cerda) CAD (coronary artery disease) COPD (chronic obstructive pulmonary disease) Enlarged prostate Ex-smoker History of kidney stones Hyperlipidemia Hypertension Memory changes Social History Smoking Status: Never smoker alcohol intake: never substance use type: denies use current occupational status: other Travel in the last 8 weeks: None household members: spouse and children housing: house lives independently: No marital status: number of children: 5 current occupational exposures/hazards: No caffeine: Yes Review of Systems Review of Systems Review of systems:: pertinent systems reviewed and negative unless documented below ENT Ears, Nose, Mouth, and Throat: Reports vertigo *Cardiovascular Cardiovascular: Reports chest pain, Reports chest pain with activity, Reports dyspnea on exertion and Reports palpitations *Respiratory Respiratory: Reports dyspnea on exertion *Gastrointestinal Gastrointestinal: Reports dyspepsia *Genitourinary Comments: Patient *Neurologic Neurologic: Reports radicular pain and Reports vertigo Comments: Prior work-up from Dr. Goss with prior intervention for what sounds like degenerative disc disease with nerve impingement. Endocrine Endocrine: Reports palpitations Exam Data for Last 24 hours Vital signs and Labs for Last 24 Hours: Temp Pulse Resp BP Pulse Ox 97.7 F 71 16 113/70 95 12/01/21 08:00 12/01/21 08:00 12/01/21 08:00 12/01/21 08:00 12/01/21 08:00 Laboratory Results - last 24 hr 11/30/21 10:45: Troponin I < 0.01 12/01/21 06:12: WBC 7.7, RBC 4.70, Hgb 14.4, Hct 47.0, MCV 99.9 H, MCH 30.5, MCHC 30.6 L, RDW 13.9, Plt Count 236, MPV 8.4, Neut % (Auto) 67.3, Lymph % (Auto) 24.8, [place] % (Auto) 6.6, Eos % (Auto) 0.7, Baso % (Auto) 0.6, Neut # (Auto) 5.2, Lymph # (Auto) 1.9, [place] # (Auto) 0.5, Eos # (Auto) 0.1, Baso # (Auto) 0.1 12/01/21 06:12: Sodium 141, Potassium 4.0, Chloride 109 H, Carbon Dioxide 27, Anion Gap 9.0, BUN 16, Creatinine 1.20, Estimated Creat Clear 76, Estimated GFR 59, Est GFR ( Amer) 71, Glucose 116 H D, Calcium 10.5 H, Magnesium 1.5 L, Total Bilirubin 0.4, AST 21, ALT 13, Alkaline Phosphatase 68, Total Protein 6.0
--- NOTE | 2021-12-01 10:26 | EXP.HP ---
History of Present Illness *Admission Date: 11/30/21 *Reason for visit:: new onset afib, dizziness *History of present illness: Mr. Burks is a 76-year-old male with multiple comorbidities including hypertension, hyperlipidemia, obesity, and history of tobacco use disorder. He presented to the ER because of 2 weeks of palpitations, worsening dizziness, and feeling fatigued. On arrival to the ER he was noted to have A. fib and a right bundle branch block on EKG. This is new as he has no history of this that he is aware of. While obtaining further history from him this morning, he admits that approximately 2 weeks ago before the dizziness began he had a brief episode of chest pain at rest that lasted approximately 5 minutes. His thought it was GERD and did not think much of it. Denies any syncope, increased shortness of breath, nausea or vomiting. Labs fairly unremarkable from the ER. Admitted to medicine for further management of new onset A. fib and right bundle branch block. Started on Lovenox. Rate controlled on exam this morning, not on any rate controlling meds. PFSH [facility] Medical History CAD (coronary artery disease) COPD (chronic obstructive pulmonary disease) Enlarged prostate Ex-smoker History of kidney stones Hyperlipidemia Hypertension Memory changes Social History Smoking Status: Never smoker alcohol intake: never substance use type: denies use current occupational status: other Travel in the last 8 weeks: None household members: spouse and children housing: house lives independently: No marital status: number of children: 5 current occupational exposures/hazards: No caffeine: Yes Review of Systems Review of Systems Review of systems (narrative): 14 point review of systems performed, pertinent positives and negatives as per HPI ENT Ears, Nose, Mouth, and Throat: Reports vertigo *Neurologic Neurologic: Reports radicular pain and Reports vertigo Meds Home Medications and Allergies Home Medications Medication Instructions Recorded Confirmed Type atorvastatin 80 mg tablet 80 mg PO HS Cholesterol 90 days 11/15/17 12/01/21 History ##90 losartan 100 100 mg PO DAILY High blood 11/15/17 11/30/21 History mg-hydrochlorothiazide 25 mg tablet pressure 90 days ##90 potassium chloride 20 mEq 20 meq PO BID Supplement 90 days 11/15/17 12/01/21 History tablet,extended release(part/cryst) ##180 tamsulosin 0.4 mg capsule 0.4 mg PO HS prostate 90 days ##90 11/15/17 12/01/21 History finasteride 5 mg tablet 5 mg PO DAILY prostate 05/24/19 11/30/21 History aspirin 81 mg tablet,delayed 81 mg PO DAILY Heart disease 08/27/21 11/30/21 History release gabapentin 100 mg capsule 200 mg PO TID restless lesg 08/27/21 11/30/21 History syndrome 30 days #180 caps tramadol 50 mg tablet 50 mg PO BID PRN Pain 09/18/21 11/30/21 History New Prescriptions to Start Prescriptions: Allergies Allergy/AdvReac Type Severity Reaction Status Date / Time codeine Allergy Unknown Verified 09/18/21 09:31 Penicillins Allergy Unknown Verified 09/18/21 09:31 Exam Data for Last 24 hours Vital signs and Labs for Last 24 Hours: Temp Pulse Resp BP Pulse Ox 97.7 F 71 16 113/70 95 12/01/21 08:00 12/01/21 08:00 12/01/21 08:00 12/01/21 08:00 12/01/21 08:00 Laboratory Results - last 24 hr 11/30/21 10:45: Troponin I < 0.01 12/01/21 06:12: WBC 7.7, RBC 4.70, Hgb 14.4, Hct 47.0, MCV 99.9 H, MCH 30.5, MCHC 30.6 L, RDW 13.9, Plt Count 236, MPV 8.4, Neut % (Auto) 67.3, Lymph % (Auto) 24.8, [place] % (Auto) 6.6, Eos % (Auto) 0.7, Baso % (Auto) 0.6, Neut # (Auto) 5.2, Lymph # (Auto) 1.9, [place] # (Auto) 0.5, Eos # (Auto) 0.1, Baso # (Auto) 0.1 12/01/21 06:12: Sodium 141, Potassium 4.0, Chloride 109 H, Carbon Dioxide 27, Anion Gap 9.0, BUN 16, Creatinine 1.20, Estimated Creat Clear 76, Estim
[2021-12-01 13:33] LABS: CATHL Activated Clotting Time 362 SEC (74-125)
--- NOTE | 2021-12-01 14:20 | PC.NURSE ---
rounded on patient. educated patient family on cath, and medications. family asking about md rounds, and educated on usual times for md to round. encouraged them to ring out as needed.
--- NOTE | 2021-12-01 17:57 | PC.NURSE ---
Patient had heart catheterization today. TR band in place but able to remove air slowly. VS stable and pt on room air. Patient states he's still having periods of seeing black and lightheaded while moving but resolves after staying still. CT scan obtained. No other complaints noted.
[2021-12-02 02:00] VITALS: PULSE 90
[2021-12-02 04:00] VITALS: BP 108/80; PULSE 78; RESP 18; TEMP 36.6; O2SAT 99; BMI 37.0
--- NOTE | 2021-12-02 05:56 | PC.NURSE ---
PT REMAINS ALERT AND ORIENTED X4. PT HAS RESTED WELL THIS SHIFT, NO C/O PAIN, SOB, OR CP. PT HAS C/O DIZZINESS X2 THIS SHIFT AND WAS VERY UNSTEADY AND DIZZY UPON STANDING TO GET TO THE BEDSIDE COMMODE. VSS DURING THE EPISODES OF DIZZINESS. PT REMAINS A-FIB ON TELE. 4X4 AND TEGADERM COVERING RIGHT RADIAL CATH SITE AND SITE IS C/D/I. REMAINS ON ROOM AIR AND TOLERATING WELL.
[2021-12-02 06:00] VITALS: PULSE 60
[2021-12-02 07:02] LABS: Basophils # 0.1 K/mm3 (0-0.2); Basophils % 0.7 % (0.1-2.0); Eosinophils % 0.5 % (0.1-12.0); Hematocrit 45.6 % (42.0-52.0); Hemoglobin 14.8 g/dL (14.1-18.0); Lymphocytes # 2.4 K/mm3 (0.7-4.5); Lymphocytes % 30.4 % (10-50); Mean Corpuscular HGB Conc 32.5 g/dL (31.8-35.4); Mean Corpuscular Hemoglobin 32.1 pg (27.0-31.2); Mean Platelet Volume 8.5 fl (7.4-10.4); Monocytes # 0.6 K/mm3 (0.1-1.0); Monocytes % 7.5 % (1.7-9.3); Neutrophils # 4.7 K/mm3 (1.8-7.8); Neutrophils % 60.8 % (37.0-80.0); Platelet Count 207 K/mm3 (142-424); Red Blood Count 4.61 M/mm3 (4.60-6.20); White Blood Count 7.7 K/mm3 (4.8-10.8)
[2021-12-02 07:04] LABS: Alanine Aminotransferase 17 U/L (12-78); Albumin Level 3.7 g/dl (3.5-5.0); Albumin/Globulin Ratio 1.5 (1.1-1.8); Alkaline Phosphatase 74 U/L (38-126); Anion Gap 8.6 mEq/L (5-15); Aspartate Amino Transferase 24 U/L (17-59); Bilirubin,Total 0.6 mg/dl (0.2-1.3); Blood Urea Nitrogen 13 mg/dl (9-20); Calcium 9.9 mg/dl (8.4-10.2); Carbon Dioxide 28 mmol/L (22.0-30.0); Chloride 107 mmol/L (98-107); Creatinine Clearance Estimated 82 mL/min (50-200); Estimated Glomerular Filt Rate 65 ml/min (>60); GFR (African American) 78 ML/MIN (>60); Globulin 2.5 g/dL (1.3-3.2); Glucose 98 mg/dl (74-100); Potassium 3.6 mmoL/L (3.5-5.1); Sodium 140 mmol/L (136-145); Total Protein,Serum 6.2 g/dl (6.3-8.2)
[2021-12-02 08:00] VITALS: BP 124/72; PULSE 77; PULSE 90
[2021-12-02 08:05] VITALS: BP 135/77; PULSE 66
[2021-12-02 08:10] VITALS: BP 121/72; PULSE 103
--- NOTE | 2021-12-02 08:33 | EXP.DC.SUM ---
General Admission date:: 11/30/21 Discharge date: 12/02/21 HPI HPI HPI: Mr. Burks is a 76-year-old male with multiple comorbidities including hypertension, hyperlipidemia, obesity, and history of tobacco use disorder. He presented to the ER because of 2 weeks of palpitations, worsening dizziness, and feeling fatigued. On arrival to the ER he was noted to have A. fib and a right bundle branch block on EKG. This is new as he has no history of this that he is aware of. While obtaining further history from him this morning, he admits that approximately 2 weeks ago before the dizziness began he had a brief episode of chest pain at rest that lasted approximately 5 minutes. His thought it was GERD and did not think much of it. Denies any syncope, increased shortness of breath, nausea or vomiting. Labs fairly unremarkable from the ER. Admitted to medicine for further management of new onset A. fib and right bundle branch block. Started on Lovenox. Rate controlled on exam this morning, not on any rate controlling meds. Hospital Course Hospital Course Hospital Course: Patient was admitted, given his elevated troponins and suspicious EKG findings he was taken to [facility] where significant lesion was stented with excellent results. Patient was transferred to the floor in good condition and recovered very nicely over the last 24 hours. Feels much better this morning. Cardiology notes reviewed. Agree with plan for discharge on triple anticoagulation therapy and then stopping aspirin in 30 days. This was reviewed with his . He still little bit dizzy. We will give him some meclizine on discharge which seemed to help with the dizziness in the ER. Otherwise short-term follow-up in my office. Exam Data for Last 24 hours Vital signs and Labs for Last 24 Hours: Temp Pulse Resp BP Pulse Ox 98 F 60 18 108/80 L 99 12/02/21 04:00 12/02/21 06:00 12/02/21 04:00 12/02/21 04:00 12/02/21 04:00 Laboratory Results - last 24 hr 12/01/21 12:40: Activated Clotting Time 362 H* 12/02/21 06:37: WBC 7.7, RBC 4.61, Hgb 14.8, Hct 45.6, MCV 99.0 H, MCH 32.1 H, MCHC 32.5, RDW 14.0, Plt Count 207, MPV 8.5, Neut % (Auto) 60.8, Lymph % (Auto) 30.4, [place] % (Auto) 7.5, Eos % (Auto) 0.5, Baso % (Auto) 0.7, Neut # (Auto) 4.7, Lymph # (Auto) 2.4, [place] # (Auto) 0.6, Eos # (Auto) 0.0, Baso # (Auto) 0.1 12/02/21 06:37: Sodium 140, Potassium 3.6, Chloride 107, Carbon Dioxide 28, Anion Gap 8.6, BUN 13, Creatinine 1.10, Estimated Creat Clear 82, Estimated GFR 65, Est GFR ( Amer) 78, Glucose 98, Calcium 9.9, Total Bilirubin 0.6, AST 24, ALT 17 D, Alkaline Phosphatase 74, Total Protein 6.2 L, Albumin 3.7, Globulin 2.5, Albumin/Globulin Ratio 1.5 I & O for Last 24 hours: Intake & Output 11/29/21 11/30/21 12/01/21 12/02/21 11:59 11:59 11:59 11:59 Intake Total 720 / 720 260 / 260 Output Total 1235 / 1235 700 / 700 Balance -515 / -515 -440 / -440 Weight 245 lb 235 lb 230 lb 6.4 oz *Routine Cardiovascular Exam Cardiovascular: Present murmur, irregular rhythm and irregularly irregular *Routine Neurological Exam Neurological: Present alert Comments: Oriented x3. Able to get up and walk with his cane but has lots of dizziness per his . Results Data Completed and Pending Labs on day of discharge: Labs from last 24 hours 12/02/21 12/02/21 12/01/21 06:37 06:37 12:40 WBC 7.7 RBC 4.61 Hgb 14.8 Hct 45.6 MCV 99.0 H MCH 32.1 H MCHC 32.5 RDW 14.0 Plt Count 207 MPV 8.5 Neut % (Auto) 60.8 Lymph % (Auto) 30.4 [place] % (Auto) 7.5 Eos % (Auto) 0.5 Baso % (Auto) 0.7 Neut # (Auto) 4.7 Lymph # (Auto) 2.4 [place] # (Auto) 0.6 Eos # (Auto) 0.0 Baso # (Auto) 0.1 Activated Clotting Time 362 H* Sodium 140 Potassium 3.6 Chloride 107 Carbon Dioxide 28 Anion Gap 8.6 BUN 13 Creatinine 1.10 Estimated Creat Clear 82 Estimated GFR 65 Est
--- NOTE | 2021-12-02 09:46 | P.PN_ITS ---
Subjective Subjective Date: 12/02/21 Time: 09:46 Principal diagnosis: A. fib, CAD Interval history: 76-year-old white male in bed in no acute distress. Denies any chest pain, pressure or tightness. He did have some dizziness when ambulating last evening and this morning. Orthostatic vital signs do show a 15 mmHg drop from sitting to standing. Exam Data for Last 24 hours Vital signs and Labs for Last 24 Hours: Temp Pulse Resp BP Pulse Ox 98 F 60 18 108/80 L 99 12/02/21 04:00 12/02/21 06:00 12/02/21 04:00 12/02/21 04:00 12/02/21 04:00 Laboratory Results - last 24 hr 12/01/21 12:40: Activated Clotting Time 362 H* 12/02/21 06:37: WBC 7.7, RBC 4.61, Hgb 14.8, Hct 45.6, MCV 99.0 H, MCH 32.1 H, MCHC 32.5, RDW 14.0, Plt Count 207, MPV 8.5, Neut % (Auto) 60.8, Lymph % (Auto) 30.4, [place] % (Auto) 7.5, Eos % (Auto) 0.5, Baso % (Auto) 0.7, Neut # (Auto) 4.7, Lymph # (Auto) 2.4, [place] # (Auto) 0.6, Eos # (Auto) 0.0, Baso # (Auto) 0.1 12/02/21 06:37: Sodium 140, Potassium 3.6, Chloride 107, Carbon Dioxide 28, Anion Gap 8.6, BUN 13, Creatinine 1.10, Estimated Creat Clear 82, Estimated GFR 65, Est GFR ( Amer) 78, Glucose 98, Calcium 9.9, Total Bilirubin 0.6, AST 24, ALT 17 D, Alkaline Phosphatase 74, Total Protein 6.2 L, Albumin 3.7, Globulin 2.5, Albumin/Globulin Ratio 1.5 I & O for Last 24 hours: Intake & Output 11/29/21 11/30/21 12/01/21 12/02/21 11:59 11:59 11:59 11:59 Intake Total 720 / 720 260 / 260 Output Total 1235 / 1235 820 / 820 Balance -515 / -515 -560 / -560 Weight 245 lb 235 lb 230 lb 6.4 oz Constitutional Constitutional: no acute distress *Routine Respiratory Exam Respiratory: Present CTA bilaterally *Routine Cardiovascular Exam Cardiovascular: Present RRR; Absent murmur *Routine Extremities Exam Extremities: Absent edema Progress Note: A&P Assessment and plan (1) Atrial fibrillation, new onset: Status: Acute (2) CAD (coronary artery disease): Status: Chronic (3) Hyperlipidemia: Status: Acute (4) Hypertension: Status: Acute (5) Dizziness: Status: Acute (6) Memory changes: Status: Acute (7) Class 2 obesity: Status: Chronic Assessment and Plan Assessment and Plan for All Diagnoses:: 1. Newly diagnosed atrial fibrillation, patient has been started on Eliquis. Rate is controlled without rate control medication. 2. CAD with LAD stenting, patient is on aspirin and Plavix. Patient may stop aspirin after 30 days. 3. Hyperlipidemia, statin therapy already started. 4. History of hypertension with orthostatic drop this admission, will decrease losartan to 50/12.5 mg daily 5. History of vertigo, meclizine has been prescribed Patient stable from a cardiac standpoint for discharge home. Home medications: Aspirin 81 mg daily for 30 days then discontinue Eliquis 5 mg twice daily Plavix 75 mg daily Atorvastatin 80 mg daily Reduce losartan to 50/12.5 mg daily Continue potassium 20 mEq twice daily with potassium of 3.6 and creatinine of 1.1 at discharge. Follow-up in our office in 1 week.
--- NOTE | 2021-12-03 13:19 | CARE MANAGER ---
Contacted patient and to follow up after hospital discharge. They state he is doing very well. They picked up his new medications and are aware of follow up appointments. Deny any questions or concerns.
== END 2021-12-02 10:20 | disposition home or self-care (01) ==
LOC: ER 09:24 → 2ND 10:42
PROVIDERS: Internal Medicine; Internal Medicine Adolescent Medicine; Admitting Provider Emergency Medicine; Emergency Provider Emergency Medicine; PCP Internal Medicine Adolescent Medicine; Visit Provider Internal Medicine Adolescent Medicine
DX: I48.91 Unspecified atrial fibrillation (principal); R07.9 Chest pain, unspecified; R94.39 Abnormal result of other cardiovascular function study; I25.110 Atherosclerotic heart disease of native coronary artery with unstable angina pectoris; J44.9 Chronic obstructive pulmonary disease, unspecified; I10 Essential (primary) hypertension; E78.5 Hyperlipidemia, unspecified
CPT/HCPCS: G0378; 36415; 70450; 80053; 82962; 83605; 83735; 84484; 85025; 85347; 92928; 93005; 93458; 99152; 99285; C1725; C1760; C1769; C1876; C9600; C9803; J1644; J3475; Q9967; U0003; U0005

== ENCOUNTER → 2021-12-10 11:27 | Outpatient (CLI) | payer MEDICARE, SELFPAY ==
--- NOTE | 2021-12-10 11:29 | CA_ITS ---
APPROVED REPORT EXAM: Comprehensive 2D, Doppler, and color-flow Echocardiogram Director Service: Jennie Olivas RT(R) Ht: 5 ft 6 in Wt: 231lbs BSA: 2.13 BP: 126/69 mmHg Indications: SOB, COPD, HTN, ex smoker, hyperlipidemia, CAD, AFIB, dizziness, obesity. 2D Dimensions LVOT 2.23 cm (M/F) 1.5-2.5 LVEF (Dawn's) 34.10 % M: 52 - 72 LV Volume 149.50 mL M: 62 - 150 LV Volume Index 70.51 mL/m2 M: 34 - 74 LA Volume 58.00 mL LA Volume Index 27.35 mL/m2 (M/F) 16-34 M-Mode Dimensions RVDd 2.41 cm (0.9-2.6) LA Diam 4.52 cm (1.9-4.0) LVDd 6.36 cm (3.5-5.7) Ao Diam 3.47 cm (2.0-3.7) LVDs 4.67 cm (3.5-5.7) IVSd 1.13 cm (0.6-1.1) PWd 0.93 cm (0.6-1.1) EF (Teich) 51.00% FS 26.60% EDV (Teich) 205.60 mL ESV (Teich) 100.80 mL Left Ventricle Left atrium is mildly enlarged, left ventricle is normal size mild concentric left ventricular hypertrophy, estimated ejection fraction 45%, there is no obvious regional wall motion abnormality, diastolic parameters are inconclusive. Right Ventricle Right atrium and right ventricle are mildly enlarged with normal contractility. Aortic Valve Aortic valve is thickened and calcified without aortic stenosis, there is mild aortic insufficiency. Mitral Valve Mitral valve is minimally thickened, there is mild mitral regurgitation. Tricuspid Valve Tricuspid valve grossly normal, there is mild tricuspid regurgitation, tricuspid regurgitation jet velocity is inadequate for calculation of the right ventricular systolic pressure. Pulmonic Valve Pulmonic valve is poorly visualized. Great Vessels Aortic root is normal size. Inferior vena cava is poorly visualized. Pericardium No significant pericardial effusion noted. Conclusion 1. Biatrial enlargement, normal left ventricular size, mild concentric left ventricular hypertrophy, estimated ejection fraction 45% with no regional wall motion abnormality, diastolic parameters are inconclusive. 2. Mildly enlarged right ventricle with normal contractility. 3. Mild aortic, mitral and tricuspid regurgitation. 4. No significant pericardial effusion. 5. Inferior vena cava is poorly visualized. Electronically signed by : Vamshi Martinez MD 12/11/2021 09:48:06
== END ==
PROVIDERS: PCP Internal Medicine Adolescent Medicine; Visit Provider Nurse Practitioner
DX: E78.2 Mixed hyperlipidemia (principal); I10 Essential (primary) hypertension; I25.119 Atherosclerotic heart disease of native coronary artery with unspecified angina pectoris; I48.19 Other persistent atrial fibrillation; R06.00 Dyspnea, unspecified; R94.31 Abnormal electrocardiogram [ECG] [EKG]
CPT/HCPCS: 93306

== ENCOUNTER → 2021-12-14 13:32 | Outpatient (POV) | payer MEDICARE, SELFPAY ==
[2021-12-14 14:15] VITALS: BP 136/75; PULSE 96; RESP 18; TEMP 36.5; O2SAT 93; BMI 38.4
--- NOTE | 2021-12-14 14:48 | EXP.PAIN.SOA ---
[facility] Pain Management SOAP Note Subjective:: Patient is a pleasant 76-year-old male who presents today for follow-up of MRI imaging of his cervical and lumbar spine. We are currently treating the patient for degenerative disc disease of lumbar spine with lumbar radiculopathy symptoms. Today the patient rates his pain a 5 out of 10. He states the pain is primarily in his low back that radiates into his lower extremities however he also has pain in his neck with some radicular symptoms. Patient states this is a aching, throbbing sensation that is worse with increased activity. He states bending over frequently aggravates his neck pain and causes more radicular symptoms into his upper extremities. Patient denies any new trauma or injury. He states this is the same pain he has been experiencing. Patient has had injective therapy in the past that provided some improvement of his symptoms. He is currently managed with gabapentin 50 mg twice a day and gabapentin 100 mg 6 times a day. Patient denies any side effects from these medications. He states this medication does adequately help manage his pain symptoms. He is requesting a refill of his tramadol at today's visit. His Gage is [phone] With a morphine equivalent of 10. It is been reviewed and appropriate. Review of Systems: General: No recent weight changes, no fever, no sleep disturbances Respiratory: No cough, no shortness of air, no recurring pulmonary infections Cardiovascular/peripheral vascular: No chest pain, no palpitations, no edema, no shortness of breath Gastrointestinal: No new onset incontinence, normal bowel movements reported Genitourinary: No new onset incontinence Musculoskeletal: Low back pain, bilateral leg pain, neck pain Psychiatric: [Normal mood/affect] Neurological: [Denies weakness in extremities], [denies balance issues] Objective:: Physical Exam: General: Alert and oriented x3, no acute distress, pleasant and cooperative Lungs: Respirations even and unlabored, symmetrical chest expansion Eyes: PERRL Musculoskeletal: Flexion and extension of cervical, lumbar [spine] somewhat guarded secondary to pain, [antalgic gait noted] Neurological: Speech clear, no gross sensory deficit CLINICAL HISTORY: NKI. CHRONIC LBP. NUMBNESS TINGLING AND PAIN RADATE DOWN BILATERAL EXTREMITIES. FINDINGS: Multiplanar MR imaging of the lumbar spine was performed without contrast. On the sagittal T2-weighted images, disc degeneration is seen throughout.? There are endplate changes at several levels.? There is mild anterolisthesis of L4 on L5. ? There is no evidence of fracture.? The conus has an unremarkable appearance.? L1-2:? There is an annular bulge, facet arthropathy and vertebral osteophytes.? There is a left foraminal disc protrusion.? There is mild right and moderate left neural foraminal narrowing.? There is mild central canal stenosis with an AP thecal sac diameter of 7 mm.? L2-3:? There is an annular bulge, facet arthropathy and vertebral osteophytes.? There is moderate bilateral neural foraminal narrowing.? There is mild central canal stenosis with an AP thecal sac diameter of 8 mm. L3-4:? There is an annular bulge, facet arthropathy and vertebral osteophytes.? There is a small central disc protrusion.? There is moderate bilateral neural foraminal narrowing.? There is moderate central canal stenosis with an AP thecal sac diameter of 6 mm.? L4-5:? There is an annular bulge, facet arthropathy and vertebral osteophytes.? There is a left foraminal disc protrusion with left L5 nerve root impingement. There is severe bilateral neural foraminal narrowing.? There is moderate central canal stenosis with an AP thecal sac diameter of 6 mm.? L5-S1:? There is an annular bulge, facet arthropathy and vertebral osteophytes.? There is moderate bilateral neural foraminal narrowing.? ? There is mild spurring of the SI joints. IMPRESSION: Multilevel degenerative disc disease with areas of neural for
== END | disposition home or self-care (01) ==
PROVIDERS: PCP Internal Medicine Adolescent Medicine; Visit Provider Nurse Practitioner Family
DX: M51.16 Intervertebral disc disorders with radiculopathy, lumbar region (principal); M50.10 Cervical disc disorder with radiculopathy, unspecified cervical region; M48.00 Spinal stenosis, site unspecified
CPT/HCPCS: 99212; G0463

== ENCOUNTER → 2022-01-02 08:01 | Outpatient (CLI) | payer MEDICARE, SELFPAY | PROVIDERS: PCP Internal Medicine Adolescent Medicine; Visit Provider Internal Medicine Cardiovascular Disease | DX: Z01.812 Encounter for preprocedural laboratory examination (principal); Z20.822 Contact with and (suspected) exposure to COVID-19; I48.91 Unspecified atrial fibrillation | CPT/HCPCS: C9803; U0003; U0005 ==

== ENCOUNTER 2022-01-04 07:19 | Day surgery (SDC) | payer MEDICARE, SELFPAY ==
[2022-01-04 07:23] VITALS: BMI 37.8
[2022-01-04 08:10] VITALS: BP 128/64; PULSE 86; RESP 18; O2SAT 97
--- NOTE | 2022-01-04 09:15 | ECG_ITS ---
APPROVED REPORT Exam: Resting ECG HR:57 bpm ECG Measurements Heart Rate 57 AXES QRSd 162 QRS -82 QT 423 T -16 QTc 418 Conclusion ATRIAL FIBRILLATION WITH SLOW VENTRICULAR RESPONSE RIGHT BUNDLE BRANCH BLOCK [120+ ms QRS DURATION, UPRIGHT V1, 40+ ms S IN I/aVL/V4/V5/V6] INFERIOR MYOCARDIAL INFARCTION , OF INDETERMINATE AGE [40+ ms Q WAVE AND/OR ST/T ABNORMALITY IN II/aVF] ANTEROLATERAL MYOCARDIAL INFARCTION , OF INDETERMINATE AGE [40+ ms Q WAVE IN I/aVL/V3-V6] ABNORMAL ECG UNCONFIRMED REPORT Electronically signed by : Aaron Peck MD 01/04/2022 17:57:19
[2022-01-04 09:23] VITALS: BP 127/57; PULSE 61; PULSE 76; RESP 18; O2SAT 90
[2022-01-04 09:44] VITALS: BP 127/57; PULSE 61; RESP 18; O2SAT 97
--- NOTE | 2022-01-04 09:46 | EXP.ANES.CKL ---
[facility] Medical History CAD (coronary artery disease) COPD (chronic obstructive pulmonary disease) Enlarged prostate Ex-smoker History of kidney stones Hyperlipidemia Hypertension Memory changes Social History (Updated 01/04/22 @ 08:11 by Alison Hughes RN) Smoking Status: Never smoker alcohol intake: never substance use type: denies use current occupational status: retired Travel in the last 8 weeks: None household members: spouse and children housing: house lives independently: No marital status: number of children: 5 current occupational exposures/hazards: No caffeine: Yes [facility] Anesthesia Checklist Patient Identification Patient Identification: Verbal (Name & ) Structural Data Admitted From: Home Planned Operative Procedure/s: cardioversion Consent for Planned Operative Procedure(s) Verified: Yes Additional verifications Anesthesia Reactions: No Hx Blood Transfusions: No Blood Transfusion Reaction: No Airway Assessment C-Spine Mobility Assessed: Yes TMJ Mobility Assessed: Yes Dentition: Edentulous Neurological Assessment Level of Consciousness: Awake, Alert and Appropriate Anesthesia Plan Anesthesia Risk discussed: Yes Anesthesia Plan: Verified ASA Class: III Anesthesia Type: MAC
--- NOTE | 2022-01-04 15:29 | P.PCN_ITS ---
[facility] Cardioversion Cardioversion Date: 01/04/22 Provider:: LB Cerda Procedure Performed:: Synchronized electrical cardioversion Diagnosis:: Atrial fibrillation Procedure Summary:: Patient was brought to the cardiac Staffing Recruiter as an outpatient.? After informed consent was obtained, anesthesia provided sedation and patient received a single 200 J synchronized shock converting her from atrial fibrillation to paced rhythm underlying sinus rhythm.? Patient tolerated the procedure well with no complications. Complications:: None Conculsion:: Successful electrical cardioversion from atrial fibrillation to sinus rhythm. Post procedure EKG showed NSR with frequent PACs.
== END 2022-01-04 09:49 | disposition home or self-care (01) ==
PROVIDERS: Internal Medicine; PCP Internal Medicine Adolescent Medicine; Visit Provider Internal Medicine Cardiovascular Disease
PROC: 5A2204Z Restoration of Cardiac Rhythm, Single (ICD-10-PCS; principal; 2022-01-04 08:00)
DX: I48.91 Unspecified atrial fibrillation (principal); I25.10 Atherosclerotic heart disease of native coronary artery without angina pectoris; Z79.01 Long term (current) use of anticoagulants; I10 Essential (primary) hypertension; I25.5 Ischemic cardiomyopathy; Z79.899 Other long term (current) drug therapy
CPT/HCPCS: 92960; 93005; 99152

== ENCOUNTER → 2022-02-01 06:14 | Outpatient (CLI) | payer MEDICARE, SELFPAY ==
--- NOTE | 2022-02-01 06:14 | NM_ITS ---
APPROVED REPORT Exam: Nuclear Stress Test Indication: SOB, Abnormal EKG, HTN, High cholesterol, CAD Patient Location: Outpatient Stress Tech: Sheila Chan AR Tech:Patricia Quijano, ARRT, RT (R)(N) Ht: 5 ft 5 in Wt: 200 lbs HR: 64 bpm BP: 101/57 mmHg BSA: 1.98 m2 TID: 1.12 BMI: 33.2 History: SOB, Abnormal EKG, HTN, High cholesterol, CAD Procedure: Patient received a 0.4 mg of intravenous Lexiscan, resting heart rate 64 bpm, resting blood pressure 101/57 mmHg, with Lexiscan maximum heart rate achived was 99 bpm which is Less than 85 % of the maximum predicted heart rate and blood pressure was 111/61 mmHg. With Lexiscan, patient denied any complaint of chest pain. Electrocardiogram Resting electrocardiogram shows atrial fibrillation, intraventricular conduction delay, with Lexiscan there is less than 1.[address] segment depression noted from the baseline EKG. The EKG portion of the Lexiscan is nondiagnostic. Cardiac Stress and Resting SPECT Images: Cardiac Stress and Resting SPECT images were obtained using technetium 99m Myoview 31.3 mCi stress and 10.63 mCi at rest. Patient unable to lay on stomach for prone images. Gated SPECT for analysis of segmental wall motion and calculation of the ejection fraction also done. Cardiac stress and rest SPECT images show fixed defect in the inferior wall with normal contractility in the gated SPECT is likely secondary to soft tissue attenuation, computer derived ejection fraction is 38% with no regional wall motion abnormality, right ventricle is normal size and contractility. Conclusion: 1. The EKG portion of the Lexiscan is nondiagnostic. 2. No scintigraphic evidence of reversible ischemia seen, computer derived ejection fraction is 38% with no regional wall motion abnormality, right ventricle is normal size and contractility. 3. Abnormal Lexiscan Myoview study due to low ejection fraction. Electronically signed by : Vamshi Martinez MD 02/01/2022 13:09:22
--- NOTE | 2022-02-01 06:14 | CA_ITS ---
APPROVED REPORT Exam: Pharmacologic Technologist: Sheila Coyle, Ht: 5 ft 5 in Wt: 227 lbs BSA: 2.09 m2 HR: 70 bpm BP: 101/57 mmHg Medical History Medications: Gabapentin,,,,, Atorvastatin,,,,, TAMSULOSIN,,,,, Tramadol,,,,, Plavix,,,,, Meclizine,,,,, Finasteride,,,,, Losartan HCTZ,,,,, Toprol XL,,,,, ElIQUs,,,,, Potassuim Chloride,,,,, Stress Test Details Test: LEXISCAN Reason for pharmacologic stress test: physical limitation. HR Resting HR: 64 bpm Max Heart Rate (APMHR): 142.737204 bpm Max HR Achieved: 99 bpm Target HR (85% APMHR): 120.079312 bpm % of APMHR: 69.72 Recovery HR: 79 bpm BP Resting BP: 101/57 mmHg Max BP: 111/61 mmHg Recovery BP: 111.0/61.0 mmHg ECG Resting ECG: A-fib with CVR, old Inf. ME, IVCD Clinical Reason for Termination: Completed Protocol Exercise duration: 04:01 min Highest Stage Achieved: Exercise capacity: 1.0 METs Stress ECG Conclusion Symptoms: No CP. Arrhythmias/Ectopy: None ST-T Changes: <1.5mm ST Segment changes Conclusion: Non-Diagnostic Test Summary REST . . . . . . . Resting REST 12:47 . . 64 . 101/ 57 . . Stage 1 01:00 . . 85 . . . . Stage 2 01:00 . . 87 . 103/ 58 . . Stage 3 01:00 . . 79 . 101/ 60 . . Stage 4 01:00 . . 75 . 102/ 62 . . Stage 4 01:01 . . 75 . 102/ 62 . Stop exercise at 04:01 RECOVERY 01:00 . . 82 . . . . RECOVERY 02:00 . . 75 . 111/ 61 . . RECOVERY 02:17 . . 80 . 111/ 61 . . Electronically signed by : Vamshi Martinez MD 02/01/2022 11:46:34
--- NOTE | 2022-02-01 08:17 | HMH.ITSHM ---
Current Home Medications as stated by this patient Leroy Burks SR or claim representative. []TRAMADOL TAMSULOSIN POTASSIUM METOPROLOL MECLIZINE LOSARTAN GABAPENTIN FINASTERIDE CLOPIDOGREL ATORVASTATIN APIXABAN
== END ==
PROVIDERS: PCP Internal Medicine Adolescent Medicine; Visit Provider Nurse Practitioner Family
DX: E78.2 Mixed hyperlipidemia (principal); I10 Essential (primary) hypertension; I25.119 Atherosclerotic heart disease of native coronary artery with unspecified angina pectoris; I25.5 Ischemic cardiomyopathy; I48.19 Other persistent atrial fibrillation; R06.09 Other forms of dyspnea; R94.31 Abnormal electrocardiogram [ECG] [EKG]
CPT/HCPCS: 78452; 93017; A9502; J2785

== ENCOUNTER → 2022-02-17 07:47 | Outpatient (CLI) | payer MEDICARE, SELFPAY ==
--- NOTE | 2022-02-17 07:48 | CT_ITS ---
FINAL REPORT CLINICAL HISTORY: memory loss COMPARISON: 12/01/2021 FINDINGS: Axial images of the head were obtained without contrast. Coronal reformatted images were also obtained. This study was performed with techniques to keep radiation doses as low as reasonably achievable (ALARA). Individualized dose reduction techniques using automated exposure control or adjustment of mA and/or kV according to the patient's size were employed. There is generalized age-appropriate atrophy. Periventricular low-attenuation areas are seen consistent with mild chronic ischemic changes. There is no evidence of intracranial hemorrhage or mass. There is no evidence of acute infarct. There is no evidence of shift of the midline structures. No skull abnormality is seen on the bone window images. IMPRESSION: Atrophy and mild periventricular chronic ischemic changes. No acute intracranial abnormality identified. Reviewed, Interpreted and Dictated by Chun Nieves III, MD Transcribed by Archana Teague Authenticated and [facility]
[2022-02-17 09:14] LABS: Basophils # 0.1 K/mm3 (0-0.2); Basophils % 0.7 % (0.1-2.0); Eosinophils # 0.1 K/mm3 (0.0-0.4); Eosinophils % 0.8 % (0.1-12.0); Hematocrit 47.3 % (42.0-52.0); Hemoglobin 15.2 g/dL (14.1-18.0); Lymphocytes # 2.2 K/mm3 (0.7-4.5); Mean Corpuscular HGB Conc 32.1 g/dL (31.8-35.4); Mean Corpuscular Volume 96.5 fl (80-94); Mean Platelet Volume 9.3 fl (7.4-10.4); Monocytes # 0.4 K/mm3 (0.1-1.0); Monocytes % 5.2 % (1.7-9.3); Neutrophils # 5.7 K/mm3 (1.8-7.8); Neutrophils % 67.3 % (37.0-80.0); Platelet Count 221 K/mm3 (142-424); Red Cell Distribution Width 12.9 % (11.5-17.5); White Blood Count 8.5 K/mm3 (4.8-10.8)
[2022-02-17 09:46] LABS: Alanine Aminotransferase 12 U/L (12-78); Albumin/Globulin Ratio 1.7 (1.1-1.8); Alkaline Phosphatase 118 U/L (38-126); Anion Gap 10.4 mEq/L (5-15); Aspartate Amino Transferase 22 U/L (17-59); Bilirubin,Total 0.7 mg/dl (0.2-1.3); Blood Urea Nitrogen 18 mg/dl (9-20); Carbon Dioxide 25 mmol/L (22.0-30.0); Chloride 100 mmol/L (98-107); Estimated Glomerular Filt Rate 49 ml/min (>60); GFR (African American) 59 ML/MIN (>60); Globulin 2.4 g/dL (1.3-3.2); Glucose 112 mg/dl (74-100); Potassium 4.4 mmoL/L (3.5-5.1); Sodium 131 mmol/L (136-145); Total Protein,Serum 6.4 g/dl (6.3-8.2)
[2022-02-17 10:16] LABS: Thyroid Stimulating Hormone 1.21 uIU/mL (0.465-4.68)
[2022-02-17 10:52] LABS: Vitamin B12 281 pg/mL (239-931)
[2022-02-17 10:54] LABS: Folate 4.02 ng/mL
== END ==
PROVIDERS: PCP Internal Medicine Adolescent Medicine; Visit Provider Specialist
DX: R41.0 Disorientation, unspecified (principal); R13.10 Dysphagia, unspecified; R63.4 Abnormal weight loss; I48.19 Other persistent atrial fibrillation
CPT/HCPCS: 36415; 70450; 80053; 82607; 82746; 84443; 85025

== ENCOUNTER → 2022-03-01 10:40 | Outpatient (CLI) | payer MEDICARE, SELFPAY ==
--- NOTE | 2022-03-01 10:47 | FL_ITS ---
FINAL REPORT CLINICAL HISTORY: .wt loss..dysphagia 1.56 fluoto time FINDINGS: MODIFIED BARIUM SWALLOW HISTORY: Dysphagia. FINDINGS: Fluoroscopy was provided for the speech pathologist to evaluate the swallowing mechanism. The patient was given several different consistencies of barium while the swallow was visualized fluoroscopically. The report of the speech pathologist should be consulted prior to making dietary decisions. IMPRESSION: Modified barium swallow under fluoroscopic guidance. Please see speech pathologist's report for further details and dietary recommendations. Fluoroscopy time was 1 minute 56 seconds. A total of 12 cine runs were saved. Reviewed, Interpreted and Dictated by Chun Nieves III, MD Transcribed by Mary Jane Wiley PA-C Authenticated and [facility]
--- NOTE | 2022-03-01 14:15 | HMH.SLMBS2 ---
Speech & Language Evaluation Speech/Language Mod Barium Swallow Start: 03/01/22 13:02 Freq: once Status: Complete Protocol: Document 03/01/22 13:02 [email or web address] (Rec: 03/01/22 14:13 [facility] [id number]) General Information General Current Food Consistancy Regular,Thin Liquids Dentition Edentulous Oxygen Status Room Air Patient Orientation Person,Place Ability to Follow Directions Good Communication Ability No Impairment MBS Recommendations Diet Dietary Recommendations Mechanical Soft,Ground Meats, Thin Liquids Comment with sauces/gravys Treatment/Strategies Strategy/Precaution Recommend Sitting Upright (90 deg), Double Swallow,No Straw,Small Bites and Sips,Alternate Liquids/Solids Referrals/Other Other Recommendations Puree wash after bites of food , crushing pills in applesauce or cutting pills as allowed, one pill at a time for all other medications Mod Barium Swallow Impressions Summary and Impressions Oral Phase Impression Minimal Impairment Oral Phase Summary Pt demonstrated mild withholding of liquids when presented with a straw, however, one cued for smaller sips withholding decipated. Pt was also noted to have a latency period whilst chewing both mechanical soft and regular solid bolus administration 2' edentulous status. Pharyngeal Phase Impression Minimal Impairment Pharyngeal Phase Summary Pt demonstrated trace residue of mechanical soft and regular solids at the BOT following initial swallow, GOLF SALES ASSOCIATE attempted to instruct for double swallow to attempt to clear, however, pt stated his throat was too dry and residue was cleared using puree wash of applesauce. Pt demonstrated no overt s/sxs of aspiration, as well as no signs of difficulty during any bolus adminstration (thins, puree, mech. soft, regular, and bariu
== END ==
PROVIDERS: PCP Internal Medicine Adolescent Medicine; Visit Provider Specialist
DX: R13.10 Dysphagia, unspecified (principal); R63.4 Abnormal weight loss
CPT/HCPCS: 70371; 92611

== ENCOUNTER → 2022-03-11 13:16 | Outpatient (CLI) | payer MEDICARE, SELFPAY ==
[2022-03-29 20:18] LABS: PTH Related Peptide < 2.0
== END ==
PROVIDERS: PCP Internal Medicine Adolescent Medicine; Visit Provider Specialist
DX: G47.34 Idiopathic sleep related nonobstructive alveolar hypoventilation (principal); R09.02 Hypoxemia; R41.3 Other amnesia; E83.52 Hypercalcemia; I48.91 Unspecified atrial fibrillation; R13.10 Dysphagia, unspecified; G47.33 Obstructive sleep apnea (adult) (pediatric)
CPT/HCPCS: 36415; 82330; 82397; G0399

== ENCOUNTER 2022-07-15 10:00 | Outpatient (RCR) | payer MEDICARE, SELFPAY ==
--- NOTE | 2022-06-14 12:02 | HMH.PTOPEV ---
PT Outpatient Evaluation Rehab PT Outpatient Evaluation Start: 06/14/22 10:51 Freq: Status: Active Protocol: Document 06/14/22 10:51 PDESEROULo (Rec: 06/14/22 12:02 [email or web address] [id number]) E-signed By Damian Lemus, PT Outpatient Therapy Subjective History Subjective History Pt. is a 76 year old male whom presents to [facility] Outpatient Physical Therapy Services in [place] for the initial evaluation this date( 06/14/22) w/ c/o chronic and intermittent increased dizziness, imbalance, and fall risk concern since S/P cardiac stents procedures last fall that has progressively worsened since then. Pt. reports symptom onset is now daily compared to initial onset. Pt. reports symptons worsen w/ pt. supine to sit rapidly, but also when pt. sit to stands rapidly. Pt. reports sitting down and 30 seconds help to improve symptoms. Pt. also reports symptom onset w/ turning his head. Pt. denies having any falls related to increase in symptoms, however, without assistance pt. reports he would have fallen. Pt. RTMD in 3 months or PRN per pt. report. Pt. reports symptoms don't last as long w/ prescribed medicine. Pt. also reports recently being instructed to decrease dosage of Hypertensive medication. Current medications include medicine for Hypertension, Hyperlipidemia, blood thinners . Pt. unable to recall prescription names at this time, vocalizes bringing list upon return. PMH includes S/P Cardiac stents fall 2021, Hypertension, Hyperlipidemia. Pt. denies history of diabetes , history of cancer(self),
== END 2022-07-19 10:45 | disposition home or self-care (01) ==
LOC: PT 10:00
PROVIDERS: PCP Internal Medicine Adolescent Medicine; Visit Provider Internal Medicine Adolescent Medicine
DX: R42 Dizziness and giddiness (principal)
CPT/HCPCS: 97110; 97112; 97140; 97163; 97530

== ENCOUNTER → 2022-11-16 09:19 | Outpatient (CLI) | payer MEDICARE, SELFPAY ==
[2022-11-16 10:24] LABS: Alanine Aminotransferase 16 U/L (12-78); Albumin Level 3.6 g/dl (3.5-5.0); Alkaline Phosphatase 89 U/L (38-126); Aspartate Amino Transferase 20 U/L (17-59); Bilirubin,Direct 0.3 mg/dl (0.0-0.4); Bilirubin,Indirect 0.6 mg/dL (0.0-0.9); Bilirubin,Total 0.9 mg/dl (0.2-1.3); Bilirubin,Unconjugated 0.7 mg/dL (0.0-1.1); Chol/HDL Ratio 3.9 (1-3.5); Cholesterol 106 mg/dl (140-200); HDL Cholesterol 27 mg/dl (40-60); Triglycerides 84 mg/dl (30-150); VLDL Cholesterol 17 mg/dL (0-40)
[2022-11-16 10:35] LABS: Direct LDL Cholesterol 63.95 mg/dL (100-129)
== END ==
PROVIDERS: PCP Internal Medicine Adolescent Medicine; Visit Provider Nurse Practitioner Family
DX: E78.5 Hyperlipidemia, unspecified (principal); I25.10 Atherosclerotic heart disease of native coronary artery without angina pectoris
CPT/HCPCS: 36415; 80061; 80076

== ENCOUNTER 2022-12-01 20:10 | Emergency (ER) | payer MEDICARE, SELFPAY ==
[2022-12-01] VITALS (8 sets, daily range): BP systolic 117–148; BP diastolic 62–86; PULSE 56–63; RESP 14–16; TEMP 36.4; O2SAT 92–96; BMI 39.0
--- NOTE | 2022-12-01 20:20 | ECG_ITS ---
APPROVED REPORT Exam: Resting ECG HR:63 bpm ECG Measurements Heart Rate 63 AXES QRSd 161 QRS -78 QT 445 T 22 QTc 452 Conclusion ATRIAL FIBRILLATION WITH ABERRANT CONDUCTION OR VENTRICULAR PREMATURE COMPLEXES RIGHT BUNDLE BRANCH BLOCK [120+ ms QRS DURATION, UPRIGHT V1, 40+ ms S IN I/aVL/V4/V5/V6] POSSIBLE ANTERIOR MYOCARDIAL INFARCTION , OF INDETERMINATE AGE [30 ms Q WAVE IN V3/V4, OR R < 0.2 mV IN V4] INFERIOR MYOCARDIAL INFARCTION , OF INDETERMINATE AGE [40+ ms Q WAVE AND/OR ST/T ABNORMALITY IN II/aVF] ABNORMAL ECG UNCONFIRMED REPORT Electronically signed by : Aaron Peck MD 12/02/2022 19:58:23
--- NOTE | 2022-12-01 20:43 | XR_ITS ---
PROCEDURE INFORMATION: Exam: XR Chest Exam date and time: 12/01/2022 8:50 PM Age: 77 years old Clinical indication: Dyspnea TECHNIQUE: Imaging protocol: Radiologic exam of the chest. Views: 1 view. COMPARISON: MR CERVICAL SPINE WO CON 11/13/2021 8:40 AM FINDINGS: Lungs: Pleuroparenchymal scarring of the lung bases with subsegmental atelectasis is present without large consolidations or pleural effusions. Pleural spaces: See Lungs finding. Heart/Mediastinum: Unremarkable. No cardiomegaly. Bones/joints: Unremarkable. IMPRESSION: Pleuroparenchymal scarring of the lung bases with subsegmental atelectasis is present without large consolidations or pleural effusions.
--- NOTE | 2022-12-01 20:47 | ECG_ITS ---
APPROVED REPORT Exam: Resting ECG HR:52 bpm ECG Measurements Heart Rate 52 AXES QRSd 160 QRS -75 QT 437 T -2 QTc 417 Conclusion ATRIAL FIBRILLATION WITH SLOW VENTRICULAR RESPONSE RIGHT BUNDLE BRANCH BLOCK [120+ ms QRS DURATION, UPRIGHT V1, 40+ ms S IN I/aVL/V4/V5/V6] POSSIBLE ANTERIOR MYOCARDIAL INFARCTION , OF INDETERMINATE AGE [30 ms Q WAVE IN V3/V4, OR R < 0.2 mV IN V4] INFERIOR MYOCARDIAL INFARCTION , OF INDETERMINATE AGE [40+ ms Q WAVE AND/OR ST/T ABNORMALITY IN II/aVF] ABNORMAL ECG UNCONFIRMED REPORT Electronically signed by : Aaron Peck MD 12/02/2022 19:58:05
--- NOTE | 2022-12-01 20:54 | PC.NURSE ---
Pt began complaining of substernal CP. EKG repeated per MD Mckeon.
[2022-12-01 21:00] LABS: VBG Base Excess -3.7 mmol/L (-2.4-2.3); VBG HCO3 22.5 mmol/L (23-30); VBG Oxygen Saturation 89.1 % (50-70); VBG PCO2 45.6 mmol/L (35-51); VBG PH 7.31 mmol/L (7.31-7.41); VBG Total CO2 23.9 mmol/L (23-27)
[2022-12-01 21:01] LABS: Basophils % 0.4 % (0.1-2.0); Eosinophils # 0.1 K/mm3 (0.0-0.4); Eosinophils % 1.2 % (0.1-12.0); Hematocrit 43.8 % (42.0-52.0); Hemoglobin 13.6 g/dL (14.1-18.0); Lymphocytes # 4.5 K/mm3 (0.7-4.5); Lymphocytes % 45.5 % (10-50); Mean Corpuscular HGB Conc 31.1 g/dL (31.8-35.4); Mean Corpuscular Volume 93.3 fl (80-94); Mean Platelet Volume 8.9 fl (7.4-10.4); Monocytes # 0.6 K/mm3 (0.1-1.0); Monocytes % 5.8 % (1.7-9.3); Neutrophils # 4.6 K/mm3 (1.8-7.8); Neutrophils % 47.1 % (37.0-80.0); Platelet Count 228 K/mm3 (142-424); Red Blood Count 4.69 M/mm3 (4.60-6.20); White Blood Count 9.8 K/mm3 (4.8-10.8)
--- NOTE | 2022-12-01 21:04 | HMH.EDGENADL ---
Discharge Plan Disposition Patient Disposition: Home, Self-Care Condition: Good Prescriptions Prescriptions: No Action meclizine 25 mg tablet 25 mg PO BID atorvastatin 80 mg tablet 80 mg PO HS 90 Days Qty: 90 potassium chloride 20 mEq tablet,ER particles/crystals 20 meq PO BID 90 Days Qty: 180 tamsulosin 0.4 mg capsule 0.4 mg PO HS 90 Days Qty: 90 gabapentin 100 mg capsule 100 mg PO TID 30 Days Qty: 90 finasteride 5 mg tablet 5 mg PO DAILY clopidogrel [Plavix] 75 mg tablet 75 mg PO DAILY Eliquis 5 mg tablet 5 mg PO BID tramadol 50 MG tablet 50 mg PO BID PRN (Reason: Pain) Qty: 60 0RF Rx Instructions: Take this medication as needed for pain. metoprolol succinate [Toprol XL] 50 mg tablet extended release 24 hr 50 mg PO DAILY losartan 25 mg tablet 25 mg PO DAILY Patient Comments: TAKE 1 TABLET BY MOUTH ONCE DAILY Referrals Follow up/Referrals: Aaron Peck MD [Primary Care Provider] - See instructions Activity Restrictions/Add. Instructions Additional Instructions/Restrictions: Please follow-up with your primary care provider. Please return to the emergency department if you develop any new or worsening symptoms or become concerned for your health. Clinical Impressions Clinical Impression: Nausea & vomiting, Atypical chest pain Discharge ED Provider: Eduar Mckeon General Adult HPI <Eduar Mckeon MD - Last Filed: 12/01/22 21:55> General Chief complaint: Weakness Stated complaint: dizzy, vomiting, h/a, shakey Time Seen by Provider: 12/01/22 20:32 Mode of Arrival: Wheelchair Source of Information: Patient and Spouse Limitations: No Limitations Description of Symptoms (Recalled from ER Triage Doc. by RN): reports pt began sweating, weak and n/v about 45 min ago, states back in January pt did same thing and required 2 stents, pt denies CP History of Present Illness HPI narrative: Patient is a 73-year-old man with mild dementia at baseline who presents today with nausea and vomiting. His is at the bedside states that he had a similar presentation in October of last year at which point he eventually had a heart cath and had multiple stents that were placed and she feels like it is a similar presentation. Looking through the notes at that time he did have some chest discomfort he had negative troponins EKG showed new atrial fibrillation and then took him to the [facility]il[facility] as a result of that. Today he denies any chest pain any shortness of breath denies any fevers or chills. His does state that he has been a little bit more somnolent over the last few weeks and states that he has had some changes on his noninvasive positive pressure ventilation going from CPAP to BiPAP. He currently denies any painful symptoms at the moment. She does state that his mental status has worsened more than normal at the moment he is very somnolent in comparison with his baseline. He vomited multiple times on the way here and his symptoms dramatically worsened over the last few hours. Related Data Home Medications Medication Instructions Recorded Confirmed atorvastatin 80 mg tablet 80 mg PO HS Cholesterol 90 days 11/15/17 12/01/22 ##90 potassium chloride 20 mEq 20 meq PO BID Supplement 90 days 11/15/17 12/01/22 tablet,extended release(part/cryst) ##180 tamsulosin 0.4 mg capsule 0.4 mg PO HS prostate 90 days ##90 11/15/17 12/01/22 finasteride 5 mg tablet 5 mg PO DAILY prostate 05/24/19 12/01/22 apixaban 5 mg tablet (Eliquis) 5 mg PO BID Blood thinner 12/14/21 12/01/22 clopidogrel 75 mg tablet (Plavix) 75 mg PO DAILY Blood thinner 12/14/21 12/01/22 metoprolol succinate 50 mg 50 mg PO DAILY Hypertension 01/04/22 12/01/22 tablet,extended release 24 hr (Toprol XL) gabapentin 100 mg capsule 100 mg PO TID restless lesg 02/11/22 12/01/22 syndrome 30 days #90 caps meclizine 25 mg tablet 25 mg PO BID dizziness 02/11/22 12/01/22 joanie
[2022-12-01 21:08] LABS: Chloride 109 mmol/L (98-107); Sodium 143 mmol/L (136-145)
[2022-12-01 21:11] LABS: Alanine Aminotransferase 20 U/L (12-78); Albumin Level 3.8 g/dl (3.5-5.0); Albumin/Globulin Ratio 1.5 (1.1-1.8); Alkaline Phosphatase 101 U/L (38-126); Aspartate Amino Transferase 24 U/L (17-59); Bilirubin,Total 0.5 mg/dl (0.2-1.3); Blood Urea Nitrogen 17 mg/dl (9-20); Carbon Dioxide 23 mmol/L (22.0-30.0); Creatinine Clearance Estimated 66 mL/min (50-200); Estimated Glomerular Filt Rate 49 ml/min (>60); GFR (African American) 59 ML/MIN (>60); Globulin 2.6 g/dL (1.3-3.2); Total Protein,Serum 6.4 g/dl (6.3-8.2)
[2022-12-01 21:12] LABS: Calcium 10.1 mg/dl (8.4-10.2); Glucose 132 mg/dl (74-100); Magnesium 1.7 mg/dl (1.6-2.3); Phosphorous 3.1 mg/dl (2.5-4.5)
[2022-12-01 21:19] LABS: Lactic Acid 2.1 mmol/L (0.7-2.1)
[2022-12-01 21:25] LABS: Troponin I < 0.01 ng/ml (0.00-0.034)
[2022-12-01 21:33] LABS: Coronavirus 19, PCR Not Detected (NotDetected); Influenza A, PCR Not Detected (NotDetected); Influenza B, PCR Not Detected (NotDetected)
[2022-12-01 21:43] LABS: Thyroid Stimulating Hormone 1.76 uIU/mL (0.465-4.68)
--- NOTE | 2022-12-01 21:53 | CT_ITS ---
PROCEDURE INFORMATION: Exam: CTA Chest With Contrast Exam date and time: 12/01/2022 10:06 PM Age: 77 years old Clinical indication: Sternal or substernal pain; Additional info: Pleuritic chest pain TECHNIQUE: Imaging protocol: Computed tomographic angiography of the chest with contrast. Exam focused on the arteries. 3D rendering (Not supervised by radiologist): MIP and/or 3D reconstructed images were created by the technologist. Radiation optimization: All CT scans at this facility use at least one of these dose optimization techniques: automated exposure control; mA and/or kV adjustment per patient size (includes targeted exams where dose is matched to clinical indication); or iterative reconstruction. Contrast material: ISOVUE; Contrast volume: 70 ml; Contrast route: INTRAVENOUS (IV); REPORTING DATA: Count of CT and Cardiac NM exams in prior 12 months: This patient has received [address] and 0 known cardiac nuclear medicine studies in the 12 months prior to the current study. COMPARISON: CR XR CHEST PORTABLE 09/03/2022 20:50 FINDINGS: Pulmonary arteries: No pulmonary emboli. Aorta: The aorta demonstrates moderate atherosclerotic disease. Lungs: Mild scarring and atelectasis in the lower lungs. Pleural spaces: Unremarkable. No pneumothorax. No pleural effusion. Heart: Cardiomegaly. Mitral valve calcifications. Coronary arteries: Coronary artery calcifications. Lymph nodes: Mildly enlarged right hilar lymph node measuring 1.4 cm in short axis image 67 series 5. Bones/joints: Unremarkable. No acute fracture. Soft tissues: Bilateral gynecomastia. IMPRESSION: 1. No pulmonary emboli. 2. Mildly enlarged right hilar lymph node measuring 1.4 cm in short axis image 67 series 5. This is nonspecific and could be reactive to a recent infection. Attention to this on any follow-up examinations.
[2022-12-02 00:01] VITALS: BP 106/72; PULSE 60; RESP 17; O2SAT 96
[2022-12-02 00:08] LABS: Troponin I < 0.01 ng/ml (0.00-0.034)
[2022-12-02 00:31] VITALS: BP 123/58; PULSE 63; RESP 16; O2SAT 95
[2022-12-02 00:47] VITALS: BP 123/58; PULSE 79; RESP 16; TEMP 36.6; O2SAT 95
== END 2022-12-02 00:48 | disposition home or self-care (01) ==
PROVIDERS: Emergency Provider Student in an Organized Health Care Education/Training Program; PCP Internal Medicine Adolescent Medicine
DX: R07.89 Other chest pain (principal); R11.2 Nausea with vomiting, unspecified; F03.90 Unspecified dementia, unspecified severity, without behavioral disturbance, psychotic disturbance, mood disturbance, and anxiety; I25.10 Atherosclerotic heart disease of native coronary artery without angina pectoris; J44.9 Chronic obstructive pulmonary disease, unspecified; N40.0 Benign prostatic hyperplasia without lower urinary tract symptoms; E78.5 Hyperlipidemia, unspecified; I10 Essential (primary) hypertension
CPT/HCPCS: 71045; 71275; 80053; 82803; 83605; 83735; 84100; 84443; 84484; 85025; 87040; 87636; 93005; 96361; 96374; 99285; J2405; Q9967

== ENCOUNTER → 2022-12-23 10:54 | Outpatient (CLI) | payer MEDICARE, SELFPAY ==
[2022-12-23 11:49] LABS: Basophils % 0.2 % (0.1-2.0); Eosinophils # 0.1 K/mm3 (0.0-0.4); Eosinophils % 0.8 % (0.1-12.0); Hematocrit 45.3 % (42.0-52.0); Lymphocytes % 25.4 % (10-50); Mean Corpuscular HGB Conc 30.9 g/dL (31.8-35.4); Mean Corpuscular Hemoglobin 29.4 pg (27.0-31.2); Mean Corpuscular Volume 95.3 fl (80-94); Mean Platelet Volume 8.6 fl (7.4-10.4); Monocytes # 0.5 K/mm3 (0.1-1.0); Monocytes % 5.9 % (1.7-9.3); Neutrophils # 5.3 K/mm3 (1.8-7.8); Neutrophils % 67.6 % (37.0-80.0); Platelet Count 193 K/mm3 (142-424); Red Blood Count 4.76 M/mm3 (4.60-6.20); Red Cell Distribution Width 14.1 % (11.5-17.5); White Blood Count 7.8 K/mm3 (4.8-10.8)
[2022-12-23 11:55] LABS: Lactic Acid 1.3 mmol/L (0.7-2.1)
[2022-12-23 12:50] LABS: Alanine Aminotransferase 15 U/L (12-78); Albumin Level 3.9 g/dl (3.5-5.0); Albumin/Globulin Ratio 1.6 (1.1-1.8); Alkaline Phosphatase 87 U/L (38-126); Anion Gap 16.9 mEq/L (5-15); Aspartate Amino Transferase 18 U/L (17-59); Bilirubin,Total 0.7 mg/dl (0.2-1.3); Blood Urea Nitrogen 18 mg/dl (9-20); Calcium 10.2 mg/dl (8.4-10.2); Carbon Dioxide 27 mmol/L (22.0-30.0); Chloride 107 mmol/L (98-107); Estimated Glomerular Filt Rate 53 ml/min (>60); GFR (African American) 64 ML/MIN (>60); Globulin 2.5 g/dL (1.3-3.2); Glucose 107 mg/dl (74-100); Lipase 44 U/L (23-300); Potassium 4.9 mmoL/L (3.5-5.1); Sodium 146 mmol/L (136-145); Total Protein,Serum 6.4 g/dl (6.3-8.2)
[2022-12-23 13:06] LABS: 25-OH Vitamin D, Total 39.8 ng/mL (30-100)
== END ==
PROVIDERS: PCP Internal Medicine Adolescent Medicine; Visit Provider Internal Medicine Adolescent Medicine
DX: K52.9 Noninfective gastroenteritis and colitis, unspecified (principal); E55.9 Vitamin D deficiency, unspecified; R59.0 Localized enlarged lymph nodes
CPT/HCPCS: 36415; 80053; 82306; 83605; 83690; 85025

== ENCOUNTER → 2022-12-24 08:55 | Outpatient (CLI) | payer MEDICARE, SELFPAY ==
[2022-12-30 16:30] LABS: Lactoferrin, Fecal, Quant. <1.00 ug/mL(g) (0.00-7.24)
[2023-01-07 18:14] LABS: Fats, Neutral Normal (.); Fats, Total Normal (.)
== END ==
PROVIDERS: PCP Internal Medicine Adolescent Medicine; Visit Provider Internal Medicine Adolescent Medicine
DX: K52.9 Noninfective gastroenteritis and colitis, unspecified (principal); E55.9 Vitamin D deficiency, unspecified; R59.0 Localized enlarged lymph nodes
CPT/HCPCS: 82705; 83630; 87205

== ENCOUNTER → 2023-01-12 09:21 | Outpatient (CLI) | payer MEDICARE, SELFPAY ==
--- NOTE | 2023-01-12 09:24 | CT_ITS ---
FINAL REPORT TECHNIQUE: Axial CT images were performed from the lung apices through the upper abdomen. Coronal and sagittal reformats were submitted. This study was performed with techniques to keep radiation doses as low as reasonably achievable (ALARA). Individualized dose reduction techniques using automated exposure control or adjustment of mA and/or kV according to the patient's size were employed. CLINICAL HISTORY: LYMPHADENOPATHY,CHRONIC DIARRHEA,COLITIS COMPARISON: Prior CTA of the chest dated 12/01/2022 FINDINGS: There is no axillary adenopathy. There is a posterior right hilar lymph node that was noted on the prior CTA of December 01, 2022, which measured 1.4 cm. On today's examination this posterior right hilar lymph node measures 1.2 cm in size. Mild scarring versus atelectasis is present in the lung bases. Heart size is normal. There is no pericardial or pleural effusion. Limited images of the upper abdomen are unremarkable. No suspicious infiltrate or nodule is identified on lung window images. Mild gynecomastia is identified. IMPRESSION: Slight decrease in size of the posterior right hilar node seen on the prior CTA of December 01. Mild atelectasis versus scar in the lung bases. Mild gynecomastia. Reviewed, Interpreted and Dictated by Chun Nieves III, MD Transcribed by Sravanthi Gutiérrez Authenticated and [facility]
--- NOTE | 2023-01-12 09:24 | CT_ITS ---
FINAL REPORT CLINICAL HISTORY: LYMPHADENOPATHY,CHRONIC DIARRHEA,COLITIS COMPARISON: None FINDINGS: Axial CT images of the abdomen and pelvis were obtained without intravenous contrast. Coronal and sagittal reformatted images were also obtained.This study was performed with techniques to keep radiation doses as low as reasonably achievable (ALARA). Individualized dose reduction techniques using automated exposure control or adjustment of mA and/or kV according to the patient's size were employed. Abdomen:The lung bases are clear. There is no evidence of renal stone or hydronephrosis. Moderate vascular calcifications are noted in the abdomen and pelvis. The liver, spleen and pancreas have an unremarkable, unenhanced appearance. No mass or adenopathy is seen. No inflammatory process is identified. Pelvis: Images of the pelvis reveal no evidence of ureteral dilation or ureteral stone.No mass or abnormal fluid collection is identified. Sigmoid diverticulosis is noted without inflammatory change to suggest diverticulitis. There is enlargement of the prostate gland. The bladder wall is slightly thickened, likely inflammatory. IMPRESSION: Sigmoid diverticulosis without acute inflammatory change. Somewhat enlarged prostate gland. Bladder wall thickening, likely inflammatory. Reviewed, Interpreted and Dictated by Chun Nieves III, MD Transcribed by Sravanthi Gutiérrez Authenticated and . [facility]
--- NOTE | 2023-01-12 10:06 | HMH.ITSTN ---
ALLERGY LIST SHOWED INTERMEDIATE REACTION (SOA, RASH) TO IVP DYE. PATIENT DID NOT RECALL. (NOR DID ) I CALLED DR JULIEN AND HE SAID TO DO THE SCAN WITHOUT IV CONTRAST
== END ==
PROVIDERS: PCP Internal Medicine Adolescent Medicine; Visit Provider Internal Medicine Adolescent Medicine
DX: R59.0 Localized enlarged lymph nodes (principal); K52.9 Noninfective gastroenteritis and colitis, unspecified
CPT/HCPCS: 71250; 74176

== ENCOUNTER 2023-05-27 07:38 | Outpatient (CLI) | payer MEDICARE, SELFPAY ==
--- NOTE | 2023-05-27 07:40 | CA_ITS ---
APPROVED REPORT EXAM: Comprehensive 2D, Doppler, and color-flow Echocardiogram Concrete Pipe Machine Operator: Radha Benson CRT Ht: 5 ft 5 in Wt: 216lbs BSA: 2.04 BP: 141/83 mmHg Indications: Abnormal ECG, Congestive Heart Failure, COPD, Atrial Fibrillation, CAD, Hyperlipidemia, Cardiomyopathy, Hypertension/HDD 2D Dimensions Left Atrium 5.19 cm LVEF (Dawn's) 39.60 % LVOT 2.23 cm (M/F) 1.5-2.5 LV Volume 111.20 mL LA Volume 75.30 mL LA Volume Index 36.90 mL/m2 (M/F) 16-34 EF AP4 41.80 % EF AP2 35.7 % EF BP 39.6 % GL Strain -10.0 % M-Mode Dimensions RVDd 2.55 cm (0.9-2.6) LVDd 6.81 cm (3.5-5.7) Ao Diam 3.99 cm (2.0-3.7) LVDs 5.33 cm (3.5-5.7) IVSd 1.43 cm (0.6-1.1) PWd 1.39 cm (0.6-1.1) EF (Teich) 42.90% FS 21.70% EDV (Teich) 240.00 mL TAPSE 1.33 (<1.7) ESV (Teich) 137.10 mL LV Diastology E Decel Time 311 (160-240 msec) E/A Ratio 1.92 MED E' 8.7 (>= 7 cm/sec) MED A' 3.10 cm/s E'/MED E' Ratio 16.22 (<= 14) LAT E' 8.8 (>= 10 cm/sec) LAT A' 2.90 cm/s E/LAT E' Ratio 16.03 (<= 14) Aortic Valve AoV Peak Froy. 129.0 (50-130 cm/s) AI PHT 444.00 ms AO Peak GR. 6.70 mmHg Mitral Valve MV E Max Froy. 141.0 (40-130 cm/s) MV A Velocity 74.0 (40-130 cm/s) E/A Ratio 1.92 MV Decel. Time 311 (160-240 ms) Tricuspid Valve TR P. Velocity 172.00 cm/s RAP Estimate 10.00 mmHg RVSP 21.90 mmHg Left Ventricle The left ventricle is normal size. Left ventricular systolic function is mildly decreased. There is normal LV wall thickness. There is mild global hypokinesis present. Grade 1 diastolic dysfunction is present. LVEF is 40-45%. Right Ventricle The right ventricle is normal size. The right ventricular systolic function is normal. Atria The left atrium is moderately dilated. Mildly dilated. The right atrium size is mildly dilated. There is no Doppler evidence of interatrial shunt. Aortic Valve The aortic valve is mildly thickened. There is no aortic valvular stenosis. Mild aortic regurgitation. Mitral Valve The mitral valve leaflets are mildly thickened. No evidence of mitral valve stenosis. Mild mitral regurgitation. The MR jet is eccentric and posteriorly directed. Tricuspid Valve The tricuspid valve leaflets are thin and pliable. Trace tricuspid regurgitation. There is insufficient TR jet to estimate RVSP. Pulmonic Valve The pulmonary valve is normal in structure. Mild pulmonic regurgitation. Great Vessels The aortic root is normal in size. The ascending aorta is normal in size. IVC is normal in size and collapses >50% with inspiration. Pericardium There is no pericardial effusion. The Other Information Study Quality: Fair Conclusion Mild reduction in LV systolic function (LVEF 40-45%). Biatrial dilation. Mild AI, mild MR, PI. Electronically signed by : Ceci Nava MD 05/31/2023 22:42:19
== END 2023-05-27 23:59 ==
LOC: RT 07:40
PROVIDERS: PCP Internal Medicine Adolescent Medicine; Visit Provider Nurse Practitioner Family
DX: E78.5 Hyperlipidemia, unspecified (principal); I10 Essential (primary) hypertension; I25.10 Atherosclerotic heart disease of native coronary artery without angina pectoris; I42.8 Other cardiomyopathies; I48.91 Unspecified atrial fibrillation; I50.20 Unspecified systolic (congestive) heart failure; R06.00 Dyspnea, unspecified; R94.31 Abnormal electrocardiogram [ECG] [EKG]
CPT/HCPCS: 93306

== ENCOUNTER 2024-05-28 04:33 | Emergency (ER) | payer MEDICARE, SELFPAY ==
[2024-05-28 04:33] VITALS: BP 186/85; PULSE 112; RESP 18; TEMP 36.6; O2SAT 96; BMI 35.9
--- NOTE | 2024-05-28 04:39 | HMH.EDGENADL ---
Discharge Plan Disposition Patient Disposition: Home, Self-Care Prescriptions Prescriptions: New cyclobenzaprine 5 mg tablet 5 mg PO TID PRN (Reason: muscle spasm) 5 Days Qty: 15 0RF No Action meclizine 25 mg tablet 25 mg PO BID PRN (Reason: dizziness) memantine 10 mg tablet 10 mg PO DAILY donepezil 5 mg tablet 5 mg PO HS atorvastatin 80 mg tablet 80 mg PO HS 90 Days Qty: 90 potassium chloride 20 mEq tablet,ER particles/crystals 20 meq PO BID 90 Days Qty: 180 tamsulosin 0.4 mg capsule 0.4 mg PO HS 90 Days Qty: 90 gabapentin 100 mg capsule 100 mg PO TID 30 Days Qty: 90 finasteride 5 mg tablet 5 mg PO DAILY famotidine 20 mg tablet 20 mg PO DAILY clopidogrel [Plavix] 75 mg tablet 75 mg PO DAILY Eliquis 5 mg tablet 5 mg PO BID tramadol 50 MG tablet 50 mg PO BID PRN (Reason: Pain) Qty: 60 0RF Rx Instructions: Take this medication as needed for pain. Referrals Follow up/Referrals: Aaron Peck MD [Primary Care Provider] - See instructions Activity Restrictions/Add. Instructions Additional Instructions/Restrictions: No emergent medical condition identified today. Please follow-up with your primary care doctor as needed and return to the emergency part with any significant worsening of your symptoms. Clinical Impressions Clinical Impression: Back pain Instructions Patient Instructions: DI for Low Back Pain Print Language Print Language: Korean Discharge ED Provider: Darian Sandoval General Adult HPI <Darian Sandoval MD - Last Filed: 05/28/24 07:10> General Chief complaint: Back Pain/Injury Stated complaint: back pain, sob Time Seen by Provider: 05/28/24 04:38 History of Present Illness HPI narrative: 78-year-old male with history of coronary artery disease, COPD, hypertension hyperlipidemia heart failure, A-fib presents for chest pain back pain and shortness of breath. He woke up and took his CPAP off and asked his to bring him to the hospital because of severe back pain. He has also been coughing up more stuff than normal according to his . No fever at home. No recent illness. Related Data Home Medications ?Medication ?Instructions ?Recorded ?Confirmed atorvastatin 80 mg tablet 80 mg PO HS Cholesterol 90 days 11/15/17 03/26/24 ##90 potassium chloride 20 mEq 20 meq PO BID Supplement 90 days 11/15/17 03/26/24 tablet,extended release(part/cryst) ##180 tamsulosin 0.4 mg capsule 0.4 mg PO HS prostate 90 days ##90 11/15/17 03/26/24 finasteride 5 mg tablet 5 mg PO DAILY prostate 05/24/19 03/26/24 apixaban 5 mg tablet (Eliquis) 5 mg PO BID Blood thinner 12/14/21 03/26/24 clopidogrel 75 mg tablet (Plavix) 75 mg PO DAILY Blood thinner 12/14/21 03/26/24 gabapentin 100 mg capsule 100 mg PO TID restless lesg 02/11/22 03/26/24 syndrome 30 days #90 caps famotidine 20 mg tablet 20 mg PO DAILY 03/10/23 03/26/24 memantine 10 mg tablet 10 mg PO DAILY 11/15/23 03/26/24 donepezil 5 mg tablet 5 mg PO HS 03/26/24 03/26/24 meclizine 25 mg tablet 25 mg PO BID PRN dizziness 03/26/24 03/26/24 Previous Rx's ?Medication ?Instructions ?Recorded tramadol 50 mg tablet 50 mg PO BID PRN Pain #60 tabs 12/14/21 cyclobenzaprine 5 mg tablet 5 mg PO TID PRN muscle spasm 5 05/28/24 days #15 tabs Allergies Allergy/AdvReac Type Severity Reaction Status Date / Time loratadine (From Claritin) Allergy Mild Verified 03/26/24 09:03 naproxen Allergy Mild Verified 03/26/24 09:03 codeine Allergy Unknown Verified 03/26/24 09:03 Penicillins Allergy Unknown Verified 03/26/24 09:03 Iodinated Contrast Media AdvReac Intermediate Difficulty Verified 03/26/24 09:03 Breathing chocolate AdvReac Mild Nausea Verified 03/26/24 09:03 ketorolac (From Toradol) AdvReac Mild Rash Verified 03/26/24 09:03 methylprednisolone (From AdvReac Mild Nausea Verified 03/26/24 09:03 Medrol) strawberry AdvReac Mild Rash Verified 03/26/24 09:03 [facility] <Darian Sandoval MD - Last Filed: 05/28/24 07:10> [facility] Disclaimer: The information contained in this section may have been updated after the patient was seen, as this information can be updated by other users. Medical History (Updated 05/28/24 @ 08:28 by Eduar Mckeon MD) HFrEF (heart failure with reduced ejection fraction) Complex sleep apnea syndrome Dementia Memory changes Ex-smoker CAD (coronary artery disease) Enlarged prostate History of kidney stones COPD (chronic obstructive pulmonary disease) Hyperlipidemia Hypertension Surgical History (Updated 03/26/24 @ 15:33 by Darline Guerra) History of heart artery stent Family History Other Alcoholism Diabetes Social History Smoking Status: Never smoker alcohol intake: former substance use type: denies use current occupational status: retired Travel in the last 8 weeks: None household members: spouse and children housing: house lives independently: No marital status: number of children: 5 current occupational exposures/hazards: No caffeine: Yes Have you lived/traveled outside [place] in past 30 days?: No Contact w/someone who lives/traveled outside US past 30 days?: No Exposure to someone with infectious disease in past 14 days?: No Do you have a fever (greater than 100.4 F or 38 C)?: No Have you tested positive for COVID-19: No Exposed to someone with COVID-19 in past 14 days?: No Do you have a sore throat?: No Do you have a cough?: No Do you have any weakness?: Yes Do you have any diarrhea?: No Are you experiencing any unusual bleeding?: No Do you have any muscle aches/pain?: Yes Do you have any abdominal pain?: No Are you experiencing loss of taste or smell?: No Other Medical History Have you received the Flu Vaccine for this season: Yes Have you received the Pneumonia Vaccine: Yes <Darian Sandoval MD - Last Filed: 05/28/24 07:10> ROS Obtained: Yes All systems reviewed & no additional complaints except as documented Physical Exam <Darian Sandoval MD - Last Filed: 05/28/24 07:10> General General appearance: alert and in no apparent distress Head Head exam: atraumatic and normocephalic Eye Eye exam: Present normal appearance, PERRL and EOMI ENT ENT exam: Present normal oropharynx and normal external ear exam Neck Neck exam: Present normal inspection and full ROM Chest Chest inspection: Present normal inspection and symmetric chest wall rise; Absent tenderness Respiratory Respiratory exam: Present normal lung sounds bilaterally (No significant wheezing or rhonchi); Absent respiratory distress Cardiovascular Cardiovascular exam: Present regular rate and normal rhythm Abdominal Exam Abdominal exam: Present soft and distention; Absent tenderness or guarding Extremities Exam Extremities exam: Present normal inspection; Absent edema or joint swelling Back Exam Back exam: Present normal inspection and tenderness (Midthoracic back, mild) Neurological Exam Neurological exam: Present alert and oriented X3; Absent motor sensory deficit Psychiatric Psychiatric exam: Present normal affect and normal mood Skin Skin exam: Present warm, dry and normal color Lymphatic Lymphatic Findings: no adenopathy Medical Decision Making <Darian Sandoval MD - Last Filed: 05/28/24 07:10> Medical Records Medical records reviewed: Yes I reviewed the patient's medical records. Screening: Per USPSTF and CDC recommendations, given the prevalence of disease in our region, it is our hospital?s policy to screen for HIV and viral Hepatitis for all patients aged 18 and over and those with ongoing risk factors. Gage Inquiry Pt receiving controlled substance: No Gage was queried for this patient: No Vital Signs: 05/28/24 04:33 05/28/24 04:45 05/28/24 05:01 Temperature 98 F 98 F Temperature Source Oral Pulse Rate 78 76 Pulse Rate [Radial] 112 H Respiratory Rate 18 18 11 L Blood Pressure 186/85 H 137/77 Blood Pressure [Right Arm] 186/85 H Blood Pressure Mean 108 Blood Pressure Mean [Right Arm] 118 Blood Pressure Position Sitting Blood Pressure Position [Right Arm] Sitting 02 Sat by Pulse Oximetry 96 96 95 Oxygen Delivery Method Room Air Room Air 05/28/24 05:46 Temperature Temperature Source Pulse Rate 55 L Pulse Rate [Radial] Respiratory Rate 11 L Blood Pressure 140/79 Blood Pressure [Right Arm] Blood Pressure Mean 99 Blood Pressure Mean [Right Arm] Blood Pressure Position Blood Pressure Position [Right Arm] 02 Sat by Pulse Oximetry 95 Oxygen Delivery Method Lab Data Lab results reviewed: Yes I reviewed the patient's lab results. Lab Results 05/28/24 04:45: WBC 9.4, RBC 5.09, Hgb 14.7, Hct 45.8, MCV 90.0, MCH 28.9, MCHC 32.1, RDW 13.7, Plt Count 212, MPV 10.3, Neut % (Auto) 63.1, Lymph % (Auto) 28.7, Nuckolls % (Auto) 6.6, Eos % (Auto) 0.9, Baso % (Auto) 0.4, Neut # (Auto) 5.9, Lymph # (Auto) 2.7, Nuckolls # (Auto) 0.6, Eos # (Auto) 0.1, Baso # (Auto) 0.0, Sodium 139, Potassium 4.4, Chloride 108 H, Carbon Dioxide 23, Anion Gap 12.4, BUN 17, Creatinine 1.20, Estimated Creat Clear 68, Estimated GFR 58 L, Est GFR ( Amer) 70, Glucose 116 H, Calcium 10.2, Total Bilirubin 1.0, AST 34, ALT 23, Alkaline Phosphatase 86, Troponin I < 0.01, Total Protein 6.9, Albumin 4.2, Globulin 2.7, Albumin/Globulin Ratio 1.6 05/28/24 05:24: SARS-CoV-2 (PCR) Not detected, Influenza A Untype (PCR) Not detected, Influenza Type B (PCR) Not detected 05/28/24 07:38: Troponin I < 0.01 05/28/24 04:45 05/28/24 04:45 Orders (Tests/Meds): ED MEDICATIONS Discontinued Medications Generic Name Dose Route Start Last Admin Trade Name Freq PRN Reason Stop Dose Admin Acetaminophen 1,000 mg 05/28/24 06:05 05/28/24 06:12 Acetaminophen 500mg Tab PO 05/28/24 06:06 1,000 mg ONCE ONE Administration Diphenhydramine HCl 50 mg 05/28/24 04:59 05/28/24 05:10 Diphenhydramine 50mg/Ml Vial IV 05/28/24 05:00 50 mg ONCE ONE Administration Iopamidol 70 ml 05/28/24 05:45 05/28/24 05:46 Iopamidol-370 (76%);100ml Bottle IV 05/28/24 05:46 70 ml ONCE ONE Administration Ketorolac Tromethamine 15 mg 05/28/24 06:05 05/28/24 06:12 Ketorolac 30mg/Ml Vial IV 05/28/24 06:06 15 mg ONCE ONE Administration Lidocaine 1 each 05/28/24 06:05 05/28/24 06:12 Lidocaine 5% Transdermal Patch TP 05/28/24 06:06 1 each ONCE ONE Administration Methylprednisolone Sodium Succinate 125 mg 05/28/24 04:59 05/28/24 05:10 Methylprednisolone Sod Succ 125mg Vial IV 05/28/24 05:00 125 mg ONCE ONE Administration Sodium Chloride 50 ml 05/28/24 05:45 05/28/24 05:46 0.9 % Sodium Chloride 50 Ml Vial IV 05/28/24 05:46 50 ml ONCE ONE Administration Sodium Chloride 10 ml 05/28/24 05:45 05/28/24 05:46 Sodium Chloride 0.9% 10ml Syr (Rad Only) IV 05/28/24 05:46 10 ml ONCE ONE Administration ORDERS Category Date Time Status CTA Chest [CT angio chest - dissection] Stat Cat Scan 05/28/24 04:55 Completed CBC w/Auto Diff [Complete Blood Count Auto Diff] Stat Lab 05/28/24 04:45 Completed CMP [Comprehensive Metabolic Panel] Stat Lab 05/28/24 04:45 Completed Rapid PCR Covid and Flu A/B Stat Lab 05/28/24 05:24 Completed Troponin I Q3H Lab 05/28/24 04:45 Completed Troponin I Q3H Lab 05/28/24 07:38 Completed HEART Score History (anamnesis): Slightly suspicious ECG: Non-specific disturbance Age: >65 years Risk factors: Atherosclerosis history Troponin: </= normal limit HEART Score: 5 Medical Decision Narrative: 78-year-old male with history of coronary artery disease COPD A-fib presents for relatively sudden onset back pain chest pain and shortness of breath. History was obtained via interactive discussion with patient. On arrival, patient is [afebrile, hemodynamically stable, satting appropriately, alert, oriented x4, GCS 15], moving all extremities spontaneously. Full physical exam performed and significant for clear lungs bilaterally Differential includes but is not limited to ACS, PE, acute aortic syndrome, COPD exacerbation, pneumonia, musculoskeletal pain Workup initiated including emergent CTA chest, CBC CMP troponin EKG . Patient has an allergy listed to contrast. The reports that she does not remember him ever having a reaction. Patient has some dementia and also does not remember ever having a reaction. On chart review, patient had a CT scan with contrast as recently as 2022 without incident. After discussion with family, we will proceed with iodinated contrast after pretreatment with Benadryl and Solu-Medrol. On re-evaluation, patient [remains afebrile, HD stable.] Continues to have back pain. Given Tylenol Toradol and lidocaine patch. Laboratory workup independently interpreted by me and significant for negative initial troponin, no significant electrolyte derangement, no leukocytosis, renal function at baseline. Imaging independently interpreted by me and significant for no evidence of acute aortic syndrome, PE, lobar pneumonia etc.. See radiology read for full review of final results. EKG independently interpreted by me and significant for atrial fib with rate of 81, occasional PVCs, bundle branch block noted. At this time patient was placed in ED observation status for serial cardiac troponins, cardiac monitoring. <Eduar Mckeon MD - Last Filed: 05/28/24 08:29> Vital Signs: 05/28/24 04:33 05/28/24 04:45 05/28/24 05:01 Temperature 98 F 98 F Temperature Source Oral Pulse Rate 78 76 Pulse Rate [Radial] 112 H Respiratory Rate 18 18 11 L Blood Pressure 186/85 H 137/77 Blood Pressure [Right Arm] 186/85 H Blood Pressure Mean 108 Blood Pressure Mean [Right Arm] 118 Blood Pressure Position Sitting Blood Pressure Position [Right Arm] Sitting 02 Sat by Pulse Oximetry 96 96 95 Oxygen Delivery Method Room Air Room Air 05/28/24 05:46 Temperature Temperature Source Pulse Rate 55 L Pulse Rate [Radial] Respiratory Rate 11 L Blood Pressure 140/79 Blood Pressure [Right Arm] Blood Pressure Mean 99 Blood Pressure Mean [Right Arm] Blood Pressure Position Blood Pressure Position [Right Arm] 02 Sat by Pulse Oximetry 95 Oxygen Delivery Method Lab Data Lab Results 05/28/24 04:45: WBC 9.4, RBC 5.09, Hgb 14.7, Hct 45.8, MCV 90.0, MCH 28.9, MCHC 32.1, RDW 13.7, Plt Count 212, MPV 10.3, Neut % (Auto) 63.1, Lymph % (Auto) 28.7, Nuckolls % (Auto) 6.6, Eos % (Auto) 0.9, Baso % (Auto) 0.4, Neut # (Auto) 5.9, Lymph # (Auto) 2.7, Nuckolls # (Auto) 0.6, Eos # (Auto) 0.1, Baso # (Auto) 0.0, Sodium 139, Potassium 4.4, Chloride 108 H, Carbon Dioxide 23, Anion Gap 12.4, BUN 17, Creatinine 1.20, Estimated Creat Clear 68, Estimated GFR 58 L, Est GFR ( Amer) 70, Glucose 116 H, Calcium 10.2, Total Bilirubin 1.0, AST 34, ALT 23, Alkaline Phosphatase 86, Troponin I < 0.01, Total Protein 6.9, Albumin 4.2, Globulin 2.7, Albumin/Globulin Ratio 1.6 05/28/24 05:24: SARS-CoV-2 (PCR) Not detected, Influenza A Untype (PCR) Not detected, Influenza Type B (PCR) Not detected 05/28/24 07:38: Troponin I < 0.01 Orders (Tests/Meds): ED MEDICATIONS Discontinued Medications Generic Name Dose Route Start Last Admin Trade Name Freq PRN Reason Stop Dose Admin Acetaminophen 1,000 mg 05/28/24 06:05 05/28/24 06:12 Acetaminophen 500mg Tab PO 05/28/24 06:06 1,000 mg ONCE ONE Administration Diphenhydramine HCl 50 mg 05/28/24 04:59 05/28/24 05:10 Diphenhydramine 50mg/Ml Vial IV 05/28/24 05:00 50 mg ONCE ONE Administration Iopamidol 70 ml 05/28/24 05:45 05/28/24 05:46 Iopamidol-370 (76%);100ml Bottle IV 05/28/24 05:46 70 ml ONCE ONE Administration Ketorolac Tromethamine 15 mg 05/28/24 06:05 05/28/24 06:12 Ketorolac 30mg/Ml Vial IV 05/28/24 06:06 15 mg ONCE ONE Administration Lidocaine 1 each 05/28/24 06:05 05/28/24 06:12 Lidocaine 5% Transdermal Patch TP 05/28/24 06:06 1 each ONCE ONE Administration Methylprednisolone Sodium Succinate 125 mg 05/28/24 04:59 05/28/24 05:10 Methylprednisolone Sod Succ 125mg Vial IV 05/28/24 05:00 125 mg ONCE ONE Administration Sodium Chloride 50 ml 05/28/24 05:45 05/28/24 05:46 0.9 % Sodium Chloride 50 Ml Vial IV 05/28/24 05:46 50 ml ONCE ONE Administration Sodium Chloride 10 ml 05/28/24 05:45 05/28/24 05:46 Sodium Chloride 0.9% 10ml Syr (Rad Only) IV 05/28/24 05:46 10 ml ONCE ONE Administration ORDERS Category Date Time Status CTA Chest [CT angio chest - dissection] Stat Cat Scan 05/28/24 04:55 Completed CBC w/Auto Diff [Complete Blood Count Auto Diff] Stat Lab 05/28/24 04:45 Completed CMP [Comprehensive Metabolic Panel] Stat Lab 05/28/24 04:45 Completed Rapid PCR Covid and Flu A/B Stat Lab 05/28/24 05:24 Completed Troponin I Q3H Lab 05/28/24 04:45 Completed Troponin I Q3H Lab 05/28/24 07:38 Completed HEART Score HEART Score: 5 Medical Decision Narrative: 78-year-old male with history of coronary artery disease COPD A-fib presents for relatively sudden onset back pain chest pain and shortness of breath. History was obtained via interactive discussion with patient. On arrival, patient is [afebrile, hemodynamically stable, satting appropriately, alert, oriented x4, GCS 15], moving all extremities spontaneously. Full physical exam performed and significant for clear lungs bilaterally Differential includes but is not limited to ACS, PE, acute aortic syndrome, COPD exacerbation, pneumonia, musculoskeletal pain Workup initiated including emergent CTA chest, CBC CMP troponin EKG . Patient has an allergy listed to contrast. The reports that she does not remember him ever having a reaction. Patient has some dementia and also does not remember ever having a reaction. On chart review, patient had a CT scan with contrast as recently as 2022 without incident. After discussion with family, we will proceed with iodinated contrast after pretreatment with Benadryl and Solu-Medrol. On re-evaluation, patient [remains afebrile, HD stable.] Continues to have back pain. Given Tylenol Toradol and lidocaine patch. Laboratory workup independently interpreted by me and significant for negative initial troponin, no significant electrolyte derangement, no leukocytosis, renal function at baseline. Imaging independently interpreted by me and significant for no evidence of acute aortic syndrome, PE, lobar pneumonia etc.. See radiology read for full review of final results. EKG independently interpreted by me and significant for atrial fib with rate of 81, occasional PVCs, bundle branch block noted. At this time patient was placed in ED observation status for serial cardiac troponins, cardiac monitoring. Reassessment this is Dr. Mckeon I took over from Dr. Sandoval. At 828-second troponin was undetectably low. This is what patient was observation for. Remainder of his workup has been unremarkable including a CT scan and labs. Musculoskeletal etiology is most likely explanation at this point. Flexeril has been prescribed patient discharged in improved and stable condition. Procedures <Darian Sandoval MD - Last Filed: 05/28/24 07:10> Risk/Benefits of Procedure(s) Were Explained: Yes Critical Care <Darian Sandoval MD - Last Filed: 05/28/24 07:10> Critical Care Time Critical Care Time: No
--- NOTE | 2024-05-28 04:42 | ECG_ITS ---
APPROVED REPORT Exam: Resting ECG HR:81 bpm ECG Measurements Heart Rate 81 AXES QRSd 156 QRS -82 QT 399 T 23 QTc 436 Conclusion ATRIAL FIBRILLATION WITH ABERRANT CONDUCTION OR VENTRICULAR PREMATURE COMPLEXES RIGHT BUNDLE BRANCH BLOCK [120+ ms QRS DURATION, UPRIGHT V1, 40+ ms S IN I/aVL/V4/V5/V6] POSSIBLE ANTERIOR MYOCARDIAL INFARCTION , OF INDETERMINATE AGE [30 ms Q WAVE IN V3/V4, OR R < 0.2 mV IN V4] INFERIOR MYOCARDIAL INFARCTION , OF INDETERMINATE AGE [40+ ms Q WAVE AND/OR ST/T ABNORMALITY IN II/aVF] ABNORMAL ECG UNCONFIRMED REPORT Electronically signed by : TAMEKA QUIÑONES, 05/28/2024 23:15:09
[2024-05-28 04:45] VITALS: BP 186/85; PULSE 78; RESP 18; TEMP 36.6; O2SAT 96
--- NOTE | 2024-05-28 04:55 | CT_ITS ---
PROCEDURE INFORMATION: Exam: CTA Chest With Contrast Exam date and time: 05/28/2024 5:32 AM Age: 78 years old Clinical indication: Pain; Chest pressure; Additional info: HTN, severe, back/chest pain TECHNIQUE: Imaging protocol: Computed tomographic angiography of the chest with contrast. Exam focused on the arteries. 3D rendering (Not supervised by radiologist): MIP and/or 3D reconstructed images were created by the technologist. Radiation optimization: All CT scans at this facility use at least one of these dose optimization techniques: automated exposure control; mA and/or kV adjustment per patient size (includes targeted exams where dose is matched to clinical indication); or iterative reconstruction. Contrast material: ISOVUE; Contrast volume: 70 ml; Contrast route: INTRAVENOUS (IV); COMPARISON: CT ANGIO CHEST PE PROTOCOL 12/01/2022 10:06 PM FINDINGS: Pulmonary arteries: Normal. No pulmonary emboli. Aorta: Unremarkable. No aortic aneurysm. No aortic dissection. Lungs: Unremarkable. No consolidation. No masses. Pleural spaces: Unremarkable. No pneumothorax. No pleural effusion. Heart: Cardiomegaly. Left ventricular dilatation. Status post PCI. Coronary arteries: Coronary atherosclerosis. Lymph nodes: Unremarkable. No enlarged lymph nodes. Bones/joints: Unremarkable. No acute fracture. Soft tissues: Unremarkable. IMPRESSION: 1. No evidence of pulmonary embolus or other acute process. 2. Minimal basilar atelectasis, no evidence of infiltrate. 3. Mild diffuse ground-glass opacity may represent alveolitis or early pulmonary edema. 4. Cardiomegaly, coronary atherosclerosis, status post PCI. Left ventricular dilatation.
[2024-05-28 05:01] VITALS: BP 137/77; PULSE 76; RESP 11; O2SAT 95
[2024-05-28 05:03] LABS: Basophils % 0.4 % (0.1-2.0); Eosinophils # 0.1 K/mm3 (0.0-0.4); Eosinophils % 0.9 % (0.1-12.0); Hematocrit 45.8 % (42.0-52.0); Hemoglobin 14.7 g/dL (14.1-18.0); Lymphocytes # 2.7 K/mm3 (0.7-4.5); Lymphocytes % 28.7 % (10-50); Mean Corpuscular HGB Conc 32.1 g/dL (31.8-35.4); Mean Corpuscular Hemoglobin 28.9 pg (27.0-31.2); Mean Platelet Volume 10.3 fl (7.4-10.4); Monocytes # 0.6 K/mm3 (0.1-1.0); Monocytes % 6.6 % (1.7-9.3); Neutrophils # 5.9 K/mm3 (1.8-7.8); Neutrophils % 63.1 % (37.0-80.0); Platelet Count 212 K/mm3 (142-424); Red Blood Count 5.09 M/mm3 (4.60-6.20); Red Cell Distribution Width 13.7 % (11.5-17.5); White Blood Count 9.4 K/mm3 (4.8-10.8)
[2024-05-28 05:06] LABS: Albumin Level 4.2 g/dl (3.5-5.0); Chloride 108 mmol/L (98-107); Potassium 4.4 mmoL/L (3.5-5.1); Sodium 139 mmol/L (136-145)
[2024-05-28 05:09] LABS: Alanine Aminotransferase 23 U/L (12-78); Albumin/Globulin Ratio 1.6 (1.1-1.8); Alkaline Phosphatase 86 U/L (38-126); Anion Gap 12.4 mEq/L (5-15); Aspartate Amino Transferase 34 U/L (17-59); Blood Urea Nitrogen 17 mg/dl (9-20); Carbon Dioxide 23 mmol/L (22.0-30.0); Creatinine Clearance Estimated 68 mL/min (50-200); Estimated Glomerular Filt Rate 58 ml/min (>60); GFR (African American) 70 ML/MIN (>60); Globulin 2.7 g/dL (1.3-3.2); Total Protein,Serum 6.9 g/dl (6.3-8.2)
[2024-05-28 05:10] LABS: Calcium 10.2 mg/dl (8.4-10.2); Glucose 116 mg/dl (74-100)
[2024-05-28] MEDS: METHYLPREDNISOLONE SOD SUCC 125MG VIAL 125 MG IV (05:10)
[2024-05-28] MEDS: diphenhydrAMINE 50MG/ML VIAL 50 MG IV (05:10)
--- NOTE | 2024-05-28 05:16 | PC.NURSE ---
notified radiophone operator pt was pre-medicated for IV contrast at this time
[2024-05-28 05:29] LABS: Troponin I < 0.01 ng/ml (0.00-0.034)
[2024-05-28 05:33] LABS: Coronavirus 19, PCR Not Detected (NotDetected); Influenza A, PCR Not Detected (NotDetected); Influenza B, PCR Not Detected (NotDetected)
[2024-05-28 05:46] VITALS: BP 140/79; PULSE 55; RESP 11; O2SAT 95
[2024-05-28] MEDS: 0.9 % SODIUM CHLORIDE 50 ML VIAL IV (05:46)
[2024-05-28] MEDS: SODIUM CHLORIDE 0.9% 10ML SYR (RAD ONLY) 10 ML IV (05:46)
[2024-05-28] MEDS: IOPAMIDOL-370 (76%);100ML BOTTLE 70 ML IV (05:46)
[2024-05-28] MEDS: LIDOCAINE 5% TRANSDERMAL PATCH 1 EACH TP (06:12)
[2024-05-28] MEDS: KETOROLAC 30MG/ML VIAL 15 MG IV (06:12)
[2024-05-28] MEDS: ACETAMINOPHEN 500MG TAB 1000 MG PO (06:12)
--- NOTE | 2024-05-28 06:30 | PC.NURSE ---
Asked pt if he could sit back in the bed so he wasnt on the edge. pt refused to sit back at this time due to it hurting his back. is at bedside and pt does not have any questions nor concerns.
[2024-05-28 08:20] LABS: Troponin I < 0.01 ng/ml (0.00-0.034)
--- NOTE | 2024-05-28 08:29 | PC.NURSE ---
dr leyva at bedside to update pt and family
[2024-05-28 08:40] VITALS: BP 128/72; PULSE 62; RESP 18; TEMP 36.7; O2SAT 98
== END 2024-05-28 08:41 | disposition home or self-care (01) ==
PROVIDERS: Emergency Provider Emergency Medicine; PCP Internal Medicine Adolescent Medicine
DX: M54.9 Dorsalgia, unspecified (principal); R07.9 Chest pain, unspecified; R06.02 Shortness of breath; R05.9 Cough, unspecified
CPT/HCPCS: 71275; 80053; 84484; 85025; 87636; 93005; 96374; 96375; 99285; J1200; J1885; J2919; Q9967

== ENCOUNTER 2024-06-11 13:31 | Outpatient (CLI) | payer MEDICARE, SELFPAY ==
--- NOTE | 2024-06-11 13:35 | CA_ITS ---
APPROVED REPORT EXAM: Comprehensive 2D, Doppler, and color-flow Echocardiogram Horse [employer]eder: Radha Benson CRT Ht: 5 ft 4 in Wt: 216lbs BSA: 2.02 BP: 141/83 mmHg Indications: COPD, Shortness of Breath, CAD, Hyperlipidemia, Cardiomyopathy, Hypertension/HDD, 40-45% 05/31/23 2D Dimensions LA Volume 101.10 mL LA Volume Index 48.80 mL/m2 (M/F) 16-34 M-Mode Dimensions RVDd 3.30 cm (0.9-2.6) LA Diam 4.30 cm (1.9-4.0) LVDd 5.55 cm (3.5-5.7) LVDs 4.14 cm (3.5-5.7) IVSd 1.05 cm (0.6-1.1) PWd 0.84 cm (0.6-1.1) EF (Teich) 49.60% FS 25.40% EDV (Teich) 150.50 mL TAPSE 1.82 (<1.7) ESV (Teich) 75.90 mL LV Diastology E Decel Time 150 (160-240 msec) E/A Ratio 1.57 MED A' 8.10 cm/s LAT A' 3.60 cm/s Aortic Valve AI PHT 461.00 ms AO Peak GR. 9.70 mmHg Mitral Valve MV E Max Froy. 85.0 (40-130 cm/s) MV A Velocity 54.0 (40-130 cm/s) E/A Ratio 1.57 MV PHT 44.0 ms Pulmonary Valve PV Peak Velocity 143.0 (50-150 cm/s) Tricuspid Valve TR P. Velocity 227.00 cm/s RAP Estimate 10.00 mmHg RVSP 30.70 mmHg Left Ventricle The left ventricle is normal size. The left ventricular systolic function is low normal. There is increased LV wall thickness. The septum is asynchronous. Diastolic function is indeterminate. LVEF is 50%. Right Ventricle The right ventricle is normal size. The right ventricular systolic function is normal. Atria Left atrium is moderately dilated. Right atrium is moderately dilated. There is no Doppler evidence of interatrial shunt. Aortic Valve Aortic valve is mildly thickened. There is no aortic valvular stenosis. Mild aortic regurgitation. Mitral Valve The mitral valve is normal in structure. No evidence of mitral valve stenosis. Trace mitral regurgitation. Tricuspid Valve Tricuspid valve is grossly normal in structure and function. Trace tricuspid regurgitation. There is insufficient TR jet to estimate RVSP. Pulmonic Valve The pulmonary valve is normal in structure. Trace pulmonic regurgitation. Great Vessels The aortic root is normal in size. IVC is normal in size and collapses >50% with inspiration. Pericardium There is no pericardial effusion. Other Information Study Quality: Fair Conclusion Low normal LV systolic function (LVEF 50%). Asynchronous septum. Moderate biatrial dilation. Mild AI. Compared to prior study from 05/27/2023, the LVEF is improved and is now in the low-normal range. In the setting of discrepancy of LVEF between TTE and nuclear stress testing, the TTE reflects the true LVEF (especially considering the nuclear stress testing was considered technically difficult). Electronically signed by : Ceci Nava MD 06/14/2024 01:26:47
== END 2024-06-11 23:59 | disposition home or self-care (01) ==
LOC: RT 13:32
PROVIDERS: PCP Internal Medicine Adolescent Medicine; Visit Provider Nurse Practitioner
DX: I25.5 Ischemic cardiomyopathy (principal); I51.7 Cardiomegaly; I35.1 Nonrheumatic aortic (valve) insufficiency
CPT/HCPCS: 93306

== ENCOUNTER 2024-06-13 07:42 | Outpatient (CLI) | payer MEDICARE, SELFPAY ==
--- NOTE | 2024-06-13 | CA_ITS ---
APPROVED REPORT Exam: Pharmacologic Technologist: Sheila Coyle Ht: 5 ft 4 in Wt: 216 lbs BSA: 2.02 m2 Stress Test Details Test: Lexiscan Reason for pharmacologic stress test: physical limitation. HR Resting HR: 66 bpm Max Heart Rate (APMHR): 140.557293 bpm Max HR Achieved: 118 bpm Target HR (85% APMHR): 119.384687 bpm % of APMHR: 84.29 Recovery HR: 118 bpm BP Resting BP: 135.0/69.0 mmHg Max BP: 146.0/71.0 mmHg Recovery BP: 132.0/72.0 mmHg ECG Resting ECG: Afib, IVCD 71 bpm Stress ECG Conclusion Symptoms: None. Arrhythmias/Ectopy: (Afib Lexiscan) PVCs. ST-T Changes: (Afib Lexiscan). Electronically signed by : Ceci Nava MD 06/14/2024 12:28:51
--- NOTE | 2024-06-13 07:42 | NM_ITS ---
APPROVED REPORT Exam: Nuclear Stress Test Indication: cad, cadiomyopathy, htn, hyperlipidemia, c.p., abn ekg Patient Location: Outpatient Stress Tech: Sheila Chan MS Tech:CATINA Parekh RT (R)(N)(M) Ht: 5 ft 8 in Wt: 230 lbs HR: 66 bpm BP: 135/69 mmHg BSA: 2.17 m2 TID: 1.15 BMI: 34.9 History: cad, cadiomyopathy, htn, hyperlipidemia, c.p., abn ekg pt could not lay on stomach for prone images Procedure: Patient received 0.4 mg of intravenous Lexiscan, resting heart rate 66 bpm, resting blood pressure 135/69 mmHg, with Lexiscan maximum heart rate achieved was 94 bpm which is % of the maximum predicted heart rate and blood pressure was 146/71 mmHg. With Lexiscan, patient denied any complaint of chest pain. Cardiac Stress and Resting SPECT Images: Cardiac Stress and Resting SPECT images were obtained using technetium 99m Myoview 31.2 mCi stress and 10.55 mCi at rest. Technically difficult study. The patient was also unable to lie on his abdomen. Therefore, prone stress imaging could not be performed. This may affect the diagnostic interpretation of the study findings. Resting and stress imaging in supine positions demonstrate a large sized, moderate, predominantly fixed perfusion defect in the inferior LV wall including the inferior apical region, as well as a medium sized, moderate, predominantly fixed perfusion defect in the lateral LV wall. There is minimal reversibility towards the mid to distal lateral LV rosario. Gated imaging demonstrates severe reduction in global LV systolic function. LVEF is calculated at 29%. Conclusion: Technically difficult study. Large sized, moderate, predominantly fixed perfusion defect in the inferior LV wall including the inferior apical region, as well as a medium sized, moderate, predominantly fixed perfusion defect in the lateral LV wall. There is minimal reversibility towards the mid to distal lateral LV rosario. Findings are suggestive of partial reversible ischemia. Gated imaging demonstrates severe reduction in global LV systolic function. LVEF is calculated at 29%. Correlation of LVEF with new or recent TTE is suggested. Electronically signed by : Ceci Nava MD 06/14/2024 01:00:41
[2024-06-13] MEDS: SODIUM CHLORIDE 0.9% 10ML SYR (RAD ONLY) 10 ML IV ×2 (08:05→09:45)
[2024-06-13] MEDS: REGADENOSON 0.4MG/5ML SYRINGE 0.4 MG IV (09:45)
[2024-06-13] MEDS: ISOTOPE MYOVIEW (PER STUDY) 1 DOSE IV (10:58)
== END 2024-06-13 23:59 | disposition home or self-care (01) ==
LOC: RAD 07:42
PROVIDERS: PCP Internal Medicine Adolescent Medicine; Visit Provider Nurse Practitioner
DX: R07.89 Other chest pain (principal); I50.20 Unspecified systolic (congestive) heart failure; R94.31 Abnormal electrocardiogram [ECG] [EKG]; R42 Dizziness and giddiness; I25.10 Atherosclerotic heart disease of native coronary artery without angina pectoris
CPT/HCPCS: 78452; 93017; 93018; A9502; J2785

== ENCOUNTER 2024-06-21 08:45 | Day surgery (SDC) | payer MEDICARE, SELFPAY ==
[2024-06-21] VITALS (11 sets, daily range): BP systolic 108–165; BP diastolic 58–91; PULSE 71–101; RESP 15–20; TEMP 36.6–36.8; O2SAT 90–97; BMI 37.8
--- NOTE | 2024-06-21 07:15 | IR_ITS ---
APPROVED REPORT Patient Location: Outpatient PROCEDURES Left heart catheterization Left ventriculogram Selective coronary angiogram INDICATION Known coronary artery disease, Angina pectoris, Abnormal Myoview Informed consent was obtained prior to the procedure. COMPLICATIONS NONE Estimated Blood Loss: LESS THAN 10 ML TECHNIQUE One percent lidocaine used to anesthetize the right anterior aspect of the wrist. The right radial artery was accessed via the Seldinger technique. A 6 [place]an sheath was placed in the right radial artery. 2.5 mg of Verapamil, 800 mcg of nitroglycerin, 1mg Lidocaine and 5000 U Heparin were given through the arterial sheath. The papa catheter and 6 [place]an JL 3.5 guide catheter were also used to perform left heart catheterization, left ventriculogram and selective coronary angiogram. At the end of the procedure the sheath was removed good hemostasis was achieved using Traclet band, patient was transferred to the postop holding area in stable condition. ANGIOGRAPHIC RESULTS The left main artery Normal The left anterior descending artery Has a stent in the proximal segment which is widely patent free of in-stent restenosis with excellent proximal and distal transitioning The circumflex artery Gives rise to a large ramus intermedius which has an ostial proximal 40 to 50% stenosis. The circumflex artery itself is large dominant and normal The right coronary artery Nondominant with 30 to 40% mid vessel and distal stenoses The HUI ventriculogram reveals Preserved at 60% The left ventricular end-diastolic pressure Less than 10 mmHg IMPRESSION Widely patent LAD stent as described above Mild to moderate disease in a large ramus intermedius Mild to moderate disease in a small nondominant right coronary Preserved ejection fraction Normal LVEDP PLAN 1. Restart Tony rivera 2. Medical management 3. Risk factor modification Electronically signed by : Venancio Romo MD 06/21/2024 15:26:09
--- NOTE | 2024-06-21 09:09 | SUR.PREOP ---
Pt is poor historian with allergies and medications. Verified with sister of allergies. States he is not allergic to any steroids and contrast just gave him hives once. Updated allergy list.
[2024-06-21 09:31] LABS: Basophils % 0.5 % (0.1-2.0); Eosinophils # 0.1 K/mm3 (0.0-0.4); Eosinophils % 0.6 % (0.1-12.0); Hematocrit 47.4 % (42.0-52.0); Hemoglobin 15.1 g/dL (14.1-18.0); Lymphocytes # 2.5 K/mm3 (0.7-4.5); Lymphocytes % 29.1 % (10-50); Mean Corpuscular HGB Conc 31.9 g/dL (31.8-35.4); Mean Corpuscular Volume 91.2 fl (80-94); Mean Platelet Volume 10.2 fl (7.4-10.4); Monocytes # 0.5 K/mm3 (0.1-1.0); Monocytes % 6.3 % (1.7-9.3); Neutrophils # 5.4 K/mm3 (1.8-7.8); Neutrophils % 63.3 % (37.0-80.0); Platelet Count 215 K/mm3 (142-424); Red Cell Distribution Width 14.3 % (11.5-17.5); White Blood Count 8.6 K/mm3 (4.8-10.8)
[2024-06-21 09:39] LABS: Chloride 107 mmol/L (98-107)
[2024-06-21 09:40] LABS: Potassium 4.4 mmoL/L (3.5-5.1); Sodium 140 mmol/L (136-145)
[2024-06-21 09:42] LABS: Blood Urea Nitrogen 16 mg/dl (9-20); Creatinine Clearance Estimated 69 mL/min (50-200); Estimated Glomerular Filt Rate 58 ml/min (>60); GFR (African American) 70 ML/MIN (>60)
[2024-06-21 09:43] LABS: Anion Gap 10.4 mEq/L (5-15); Calcium 10.9 mg/dl (8.4-10.2); Carbon Dioxide 27 mmol/L (22.0-30.0); Glucose 119 mg/dl (74-100)
--- NOTE | 2024-06-21 10:48 | SUR.PREOP ---
Family at beside, updated on time and POC
--- NOTE | 2024-06-21 12:24 | SUR.PREOP ---
pt's family updated on wait time.
--- NOTE | 2024-06-21 13:17 | SUR.PHASEII ---
pt's family at bedside.
--- NOTE | 2024-06-21 14:28 | SUR.PHASEII ---
family at bedside with patient and family in lobby updated.
[2024-06-21] MEDS: diphenhydrAMINE 50MG/ML VIAL 50 MG IV (14:48)
[2024-06-21] MEDS: FAMOTIDINE 20MG/2ML VIAL 20 MG IV (14:49)
[2024-06-21] MEDS: METHYLPREDNISOLONE SOD SUCC 125MG VIAL 125 MG IV (14:49)
[2024-06-21] MEDS: VERAPAMIL 2.5MG/ML 2ML VIAL 2.5 MG IV (14:50)
[2024-06-21] MEDS: LIDOCAINE 1% 10ML MDV 20 ML IJ (14:50)
[2024-06-21] MEDS: MIDAZOLAM HCL 1MG/ML 5ML VIAL 1 MG IV (14:50)
[2024-06-21] MEDS: HEPARIN 1,000 UNITS/500ML NS (CATH LAB) 3000 UNIT IV (14:51)
[2024-06-21] MEDS: 0.9 % SODIUM CHLORIDE 500 ML 25 ML IV (14:51)
[2024-06-21] MEDS: FENTANYL 100MCG/2ML VIAL 50 MCG IV (14:51)
[2024-06-21] MEDS: IOPAMIDOL-370 (76%);100ML BOTTLE 70 ML IV (17:05)
== END 2024-06-21 17:30 | disposition home or self-care (01) ==
LOC: CATHLAB 08:45
PROVIDERS: PCP Internal Medicine Adolescent Medicine; Visit Provider Internal Medicine
DX: I25.118 Atherosclerotic heart disease of native coronary artery with other forms of angina pectoris (principal); R94.39 Abnormal result of other cardiovascular function study; I11.0 Hypertensive heart disease with heart failure; E78.5 Hyperlipidemia, unspecified; J44.9 Chronic obstructive pulmonary disease, unspecified; I50.20 Unspecified systolic (congestive) heart failure; I48.91 Unspecified atrial fibrillation; I42.9 Cardiomyopathy, unspecified; Z79.01 Long term (current) use of anticoagulants; Z88.0 Allergy status to penicillin; Z88.8 Allergy status to other drugs, medicaments and biological substances; Z91.018 Allergy to other foods; Z88.5 Allergy status to narcotic agent; Z87.891 Personal history of nicotine dependence; Z79.899 Other long term (current) drug therapy
CPT/HCPCS: 80048; 85025; 93458; 99152; C1725; C1769; J1200; J1644; J2919; J3010; Q9967; S0028

== ENCOUNTER 2025-03-11 11:43 | Inpatient (IN) | payer MEDICARE, SELFPAY ==
[2025-03-11] VITALS (13 sets, daily range): BP systolic 110–157; BP diastolic 62–101; PULSE 59–105; RESP 18–21; TEMP 36.4–36.9; O2SAT 93–96; BMI 36.0; BMI 33.0
--- NOTE | 2025-03-11 12:00 | ECG_ITS ---
APPROVED REPORT Exam: Resting ECG HR:84 bpm ECG Measurements Heart Rate 84 AXES QRSd 151 QRS -76 QT 346 T 26 QTc 387 Conclusion ATRIAL FIBRILLATION WITH ABERRANT CONDUCTION OR VENTRICULAR PREMATURE COMPLEXES RIGHT BUNDLE BRANCH BLOCK [120+ ms QRS DURATION, UPRIGHT V1, 40+ ms S IN I/aVL/V4/V5/V6] POSSIBLE ANTERIOR MYOCARDIAL INFARCTION , OF INDETERMINATE AGE [30 ms Q WAVE IN V3/V4, OR R < 0.2 mV IN V4] INFERIOR MYOCARDIAL INFARCTION , OF INDETERMINATE AGE [40+ ms Q WAVE AND/OR ST/T ABNORMALITY IN II/aVF] ABNORMAL ECG UNCONFIRMED REPORT A-fib with ventricular rate of 84 bpm. Right bundle branch block. No STEMI. Electronically signed by : DEV MEHTA, 03/11/2025 15:53:29
--- NOTE | 2025-03-11 12:11 | XR_ITS ---
PROCEDURE INFORMATION: Exam: XR Chest Exam date and time: 03/11/2025 12:28 PM Age: 79 years old Clinical indication: Shortness of breath; Additional info: Swelling, SOB TECHNIQUE: Imaging protocol: Radiologic exam of the chest. Views: 1 view. COMPARISON: 1. CR XR CHEST PORTABLE 12/01/2022 8:[address] ANGIO CHEST 05/28/2024 5:32 AM FINDINGS: Lungs: Areas of airspace consolidation of the left lung base may correspond to atelectatic change. Pleural spaces: Blunting of the right and left costophrenic angle compatible with small bilateral pleural effusions. No large pleural effusion. No pneumothorax. Heart/Mediastinum: Heart size is enlarged. Mediastinal contours are smooth. Bones/joints: Degenerative changes are present throughout the spine. Moderate scoliosis. Other findings: No CHF. IMPRESSION: Cardiomegaly is stable. No overt CHF. Airspace consolidation of the left lung base more likely corresponds to atelectatic change. Please correlate with any history of cough or fever. Slight blunting of the right and left costophrenic angle suggestive of small bilateral pleural effusions. No large pleural effusion. No pneumothorax.
--- NOTE | 2025-03-11 12:12 | CA_ITS ---
APPROVED REPORT EXAM: Comprehensive 2D, Doppler, and color-flow Echocardiogram Technical Writer And Editor: Jennie Olivas, RT(R) Ht: 5 ft 4 in Wt: 210lbs BSA: 2.00 BP: 134/78 mmHg Indications: shortness of air, dementia, AFIB, CAD, RBBB, COPD. 2D Dimensions Left Atrium 2.94 cm M: 3.0 - 4.0 LVEF (Dawn's) 21.40 % M: 52 - 72 LVOT 2.08 cm (M/F) 1.5-2.5 LV Volume 147.30 mL M: 62 - 150 LV Volume Index 73.7 mL/m2 M: 34 - 74 LA Volume 77.70 mL LA Volume Index 38.85 mL/m2 (M/F) 16-34 EF AP4 22.80 % EF AP2 23.9 % EF BP 21.4 % GL Strain -4.5 % M-Mode Dimensions RVDd 3.06 cm (0.9-2.6) LVDd 6.75 cm (3.5-5.7) Ao Diam 3.02 cm (2.0-3.7) LVDs 5.95 cm (3.5-5.7) IVSd 0.68 cm (0.6-1.1) PWd 0.68 cm (0.6-1.1) EF (Teich) 24.90% FS 11.90% EDV (Teich) 235.30 mL ESV (Teich) 176.60 mL Aortic Valve LVOT Max 85.0 (70-110 cm/s) CHRISTINA Index 0.93 cm2/m2 LVOT VTI 15.13 cm AoV Peak Froy. 166.0 (50-130 cm/s) AO Mean GR. 5.40 (<5 mmHg) AO VTI 27.6 (18-25 cm) CHRISTINA (VTI) 1.86 (2.5-4.5 cm2) Tricuspid Valve TR P. Velocity 304.00 cm/s Left Ventricle The left ventricle is normal size. Left ventricular systolic function is severely reduced. There is increased left ventricular wall thickness. There is a near akinesis of the basal inferoseptal, septal, and anteroseptal LV rosario. The septum is asynchronous. The left ventricular diastolic function is indeterminate. LVEF is 25-30% Right Ventricle The right ventricle is mildly dilated. The right ventricular systolic function is normal. Atria Left atrium is severely dilated. Right atrium is moderately dilated. There is no color Doppler evidence of interatrial shunt. Aortic Valve The aortic valve is mildly thickened. There is no hemodynamically significant aortic valvular stenosis. Mild to mild moderate aortic regurgitation is present. Mitral Valve The mitral valve is mildly thickened. No evidence of mitral valve stenosis. Mild mitral regurgitation is present. Tricuspid Valve The tricuspid valve leaflets are thin and pliable. Mild tricuspid regurgitation. RVSP is 40-45 mmHg. Pulmonic Valve The pulmonary valve is grossly normal in structure. Trace pulmonic valve regurgitation is present. Great Vessels The aortic root is normal in size. IVC is normal in size and collapses >50% with inspiration. Pericardium There is no pericardial effusion. Other Information Study Quality: Fair Conclusion Severe reduction in LV systolic function (LVEF 25-30%). Near akinesis of the basal inferoseptal, septal, and anteroseptal LV rosario. The septum is asynchronous. Mild RV dilation with normal RV function. Biatrial dilation. Mild to moderate AI. Mild MR, mild TR. Elevated RVSP 40-45 mmHg. Electronically signed by : Ceci Nava MD 03/11/2025 15:08:30
--- NOTE | 2025-03-11 12:14 | [facility].EDCP ---
Discharge Plan Disposition Patient Disposition: Admitted Prescriptions Prescriptions: No Action memantine 10 mg tablet 10 mg PO DAILY donepezil 5 mg tablet 5 mg PO HS finasteride 5 mg tablet 5 mg PO DAILY famotidine 20 mg tablet 20 mg PO DAILY Rexulti 0.5 mg tablet 0.5 mg PO DAILY furosemide [Lasix] 20 mg tablet 20 mg PO DAILY clopidogrel [Plavix] 75 mg tablet 75 mg PO DAILY Eliquis 5 mg tablet 5 mg PO BID cyclobenzaprine 5 mg tablet 5 mg PO TID PRN (Reason: muscle spasm) 5 Days Qty: 15 0RF Referrals Follow up/Referrals: Aaron Peck MD [Primary Care Provider, Internal Medicine] - See instructions Clinical Impressions Clinical Impression: CHF exacerbation Print Language Print Language: Niuean Discharge ED Provider: Teddy Hansen General Chief Complaint: Shortness of Breath/Dyspnea Stated Complaint: SOA, fluid on lungs Time Seen by Provider: 03/11/25 12:01 Mode of Arrival: Wheelchair Source of Information: Patient and Spouse Description of Symptoms (Recalled from ER Triage Doc. by RN): pt sent from cardiology. he has had increased swelling and shortness of breath. was seen at [facility] last night and given a fluid pill. saw cardiology this morning and was sent over. pt has dementia. @ bedside History of Present Illness HPI narrative: Leroy Burks is an 79y male with a history of dementia, A-fib on Eliquis and Plavix, hyperlipidemia, hypertension, coronary stents who presents to the emergency department from cardiology clinic for concern for heart failure/shortness of breath and volume overload. History is provided by patient's spouse at bedside due to patient's underlying dementia. She states that over the last 2 weeks, he has been complaining of shortness of breath and is requesting that he sit up at all times. She states that his legs seem to be swelling as well. She denies any fever but does report a productive cough of clear sputum. She states that his oxygen has not been low at home and that he uses oxygen at night intermittently. He was seen at [facility] last night and had a follow-up appointment arranged with Dr. Romo this morning. He was seen in clinic and was sent to the emergency department for concern for volume overload/heart failure. She did state after receiving Lasix yesterday he seemed to be urinating more, however had not been urinating well prior to this. Related Data Home Medications ?Medication ?Instructions ?Recorded ?Confirmed finasteride 5 mg tablet 5 mg PO DAILY prostate 05/24/19 03/11/25 apixaban 5 mg tablet (Eliquis) 5 mg PO BID Blood thinner 12/14/21 03/11/25 clopidogrel 75 mg tablet (Plavix) 75 mg PO DAILY Blood thinner 12/14/21 03/11/25 famotidine 20 mg tablet 20 mg PO DAILY 03/10/23 03/11/25 memantine 10 mg tablet 10 mg PO DAILY 11/15/23 03/11/25 donepezil 5 mg tablet 5 mg PO HS 03/26/24 03/11/25 brexpiprazole 0.5 mg tablet 0.5 mg PO DAILY 10/01/24 03/11/25 (Rexulti) furosemide 20 mg tablet (Lasix) 20 mg PO DAILY 03/11/25 03/11/25 Previous Rx's ?Medication ?Instructions ?Recorded cyclobenzaprine 5 mg tablet 5 mg PO TID PRN muscle spasm 5 05/28/24 days #15 tabs Allergies Allergy/AdvReac Type Severity Reaction Status Date / Time loratadine (From Claritin) Allergy Mild rash Verified 03/11/25 10:58 naproxen Allergy Mild Rash Verified 03/11/25 10:58 codeine Allergy Unknown Rash Verified 03/11/25 10:58 Penicillins Allergy Unknown Rash Verified 03/11/25 10:58 Iodinated Contrast Media AdvReac Mild Hives Verified 03/11/25 10:58 ketorolac (From Toradol) AdvReac Mild Rash Verified 03/11/25 10:58 strawberry AdvReac Mild Rash Verified 03/11/25 10:58 PFS PFS Disclaimer: The information contained in this section may have been updated after the patient was seen, as this information can be updated by other users. 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 Unable to complete Mini-Mental status due to difficulty with reading and writing. Multifactorial including chronic A. fib, cardiomyopathy, hypertension, chronic hypoxemia. 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 Memory changes Ex-smoker CAD (coronary artery disease) Enlarged prostate History of kidney stones COPD (chronic obstructive pulmonary disease) Hyperlipidemia Hypertension Surgical History History of heart artery stent Family History Other Alcoholism Diabetes Social History Smoking Status: Never smoker alcohol intake: former substance use type: denies use current occupational status: retired Travel in the last 8 weeks?: None household members: spouse and children housing: house lives independently: No marital status: number of children: 5 current occupational exposures/hazards: No caffeine: Yes Have you lived/traveled outside [place] in past 30 days?: No Contact w/someone who lives/traveled outside US past 30 days?: No Exposure to someone with infectious disease in past 14 days?: No Do you have a fever (greater than 100.4 F or 38 C)?: No Have you tested positive for COVID-19?: No Exposed to someone with COVID-19 in past 14 days?: No Do you have a sore throat?: No Do you have a cough?: No Do you have any weakness?: No Do you have any diarrhea?: No Are you experiencing any unusual bleeding?: No Do you have any muscle aches/pain?: No Do you have any abdominal pain?: No Are you experiencing loss of taste or smell?: No Other Medical History Have you received the Flu Vaccine for this season: Yes Have you received the Pneumonia Vaccine: Yes ROS Obtained: Yes Systems reviewed as appropriate & no additional complaints except as documented Physical Exam General General appearance: alert and in no apparent distress Head Head exam: atraumatic Eye Eye exam: Present normal appearance ENT ENT exam: Present normal external ear exam Neck Neck exam: Present full ROM Chest Chest inspection: Present symmetric chest wall rise Respiratory Respiratory exam: Absent normal lung sounds bilaterally (diminished breath sounds bilaterally.), respiratory distress, wheezes or stridor Cardiovascular Cardiovascular exam: Present regular rate and irregular rhythm Abdominal Exam Abdominal exam: Present soft; Absent tenderness or guarding exam: Present deferred Extremities Exam Extremities exam: Present normal inspection and edema (3+ pitting edema to distal bilateral lower extremities) Back Exam Back exam: Present normal inspection Neurological Exam Neurological exam: Present alert; Absent oriented X3 (Oriented to self. Otherwise confused) Psychiatric Psychiatric exam: Present normal affect Skin Skin exam: Present warm and dry HEART Score HEART Score HEART Score assessment performed?: Yes History (anamnesis): Slightly suspicious ECG: Normal Age: >65 years Risk factors: Atherosclerosis history Troponin: </= normal limit HEART Score: 4 Critical Care Critical Care Time Critical Care Time: No Medical Decision Making Gage Inquiry Pt receiving controlled substance: No Vital Signs Vital Signs: 03/11/25 12:05 Temperature 98.4 F Temperature Source Oral Pulse Rate [Left] 81 Respiratory Rate 20 Blood Pressure [Left Arm] 134/78 Blood Pressure Mean [Left Arm] 96 02 Sat by Pulse Oximetry 96 Oxygen Delivery Method Room Air Lab Data Labs: Lab Results 03/11/25 12:05: WBC 7.9, RBC 4.56 L, Hgb 13.1 L, Hct 41.8 L, MCV 91.7, MCH 28.7, MCHC 31.3 L, RDW 14.9, Plt Count 188, MPV 11.1 H, Neut % (Auto) 70.5, Lymph % (Auto) 19.2, Mcdowell % (Auto) 9.3, Eos % (Auto) 0.4, Baso % (Auto) 0.3, Neut # (Auto) 5.6, Lymph # (Auto) 1.5, Mcdowell # (Auto) 0.7, Eos # (Auto) 0.0, Baso # (Auto) 0.0, Sodium 141, Potassium 3.3 L, Chloride 106, Carbon Dioxide 32 H, Anion Gap 6.3, BUN 20, Creatinine 1.50 H, Estimated Creat Clear 52, Estimated GFR 45 L, Est GFR ( Amer) 54 L, Glucose 103 H, Calcium 10.5 H, Total Bilirubin 1.2, AST 27, ALT 20, Alkaline Phosphatase 67, Troponin I 0.03, NT-Pro-B Natriuret Pep 6460 H, Total Protein 7.2, Albumin 4.5, Globulin 2.7, Albumin/Globulin Ratio 1.7 03/11/25 12:05 03/11/25 12:05 Response Orders (Tests/Meds): ED MEDICATIONS Discontinued Medications Generic Name Dose Route Start Last Admin Trade Name Freq PRN Reason Stop Dose Admin Furosemide 40 mg 03/11/25 12:13 03/11/25 12:25 Furosemide 40mg/4ml Vial IV 03/11/25 12:14 40 mg ONCE ONE Administration ORDERS Category Date Time Status CXR --portable [XR chest portable] Stat Exams 03/11/25 12:11 Completed BNP [NT Pro Brain Natriuretic Pep.] Stat Lab 03/11/25 12:05 Completed CBC w/Auto Diff [Complete Blood Count Auto Diff] Stat Lab 03/11/25 12:05 Completed CMP [Comprehensive Metabolic Panel] Stat Lab 03/11/25 12:05 Completed HIV Combo Stat Lab 03/11/25 12:05 Received Hepatitis C Ab Qual. W/ RFX Stat Lab 03/11/25 12:05 Received Troponin I Q3H Lab 03/11/25 15:15 Ordered Troponin I Q3H Lab 03/11/25 18:15 Ordered Troponin I Stat Lab 03/11/25 12:05 Completed CA echo doppler complete Stat Y 03/11/25 12:12 Completed MDM Narrative Medical Decision Narrative: Leroy Burks is an 79y male with a history of dementia, A-fib on Eliquis and Plavix, hyperlipidemia, hypertension, coronary stents who presents to the emergency department from cardiology clinic for concern for heart failure/shortness of breath and volume overload. History is provided by patient's spouse at bedside due to patient's underlying dementia. She states that over the last 2 weeks, he has been complaining of shortness of breath and is requesting that he sit up at all times. She states that his legs seem to be swelling as well. She denies any fever but does report a productive cough of clear sputum. She states that his oxygen has not been low at home and that he uses oxygen at night intermittently. He was seen at [facility] last night and had a follow-up appointment arranged with Dr. Romo this morning. He was seen in clinic and was sent to the emergency department for concern for volume overload/heart failure. On arrival, patient is normotensive, heart rate within normal limits, afebrile, maintaining appropriate oxygen saturation on room air. Physical exam, stated above, revealed nontoxic-appearing male in no distress. He is confused, however spouse states that this is his baseline due to his dementia. He is unable to provide any additional history other than stating that he is short of breath and wants to sit up. He has diminished breath sounds bilaterally but no wheezing. He has 3+ pitting edema to the distal bilateral lower extremities. I did have conversation with MARIN Cunningham with cardiology clinic prior to patient's arrival to the emergency department who recommended 40 mg of IV Lasix and echocardiogram. Differential diagnosis includes, but is not limited to: ACS, CHF, volume overload, kidney injury, pneumonia, among others. The most morbid conditions were considered and workup was based on these. Will obtain EKG, hematologic labs, complete cardiac echo, chest x-ray. Will diurese with 40 mg of IV Lasix. EKG was interpreted by me personally. Demonstrates A-fib with ventricular rate of 84 bpm. Right bundle branch block. No ST elevation or depression. QTc normal 387 Patient's workup shows no leukocytosis, mildly low hemoglobin at 13.1, hematocrit 41.8, platelets 188. Electrolytes show mild hypokalemia at 3.3 (will replete with 40 mill equivalents of potassium chloride), anion gap normal at 6.3. Mild MARYA with creatinine 1.5, BUN normal at 20. Baseline creatinine appears to be around 1.2. BNP is elevated at 6460. Initial troponin 0.03. Liver enzymes and bilirubin otherwise within normal limits. Cardiac echocardiogram is pending. Chest x-ray was interpreted by me personally. Patient has cardiomegaly, no focal consolidation. Patient has mild pleural effusions bilaterally. His CT radiology report for details. Based on my conversation with cardiology, MARIN Cunningham, they recommended admission. I did discuss patient's case with Dr. Burciaga with the hospital medicine service who is in agreement with admission at this time.
[2025-03-11 12:18] LABS: Hematocrit 41.8 % (42.0-52.0); Hemoglobin 13.1 g/dL (14.1-18.0); Immature Granulocytes % 0.3 %; Mean Corpuscular HGB Conc 31.3 g/dL (31.8-35.4); Mean Corpuscular Hemoglobin 28.7 pg (27.0-31.2); Mean Corpuscular Volume 91.7 fl (80-94); Nucleated Red Blood Cells % 0 %; Platelet Count 188 K/mm3 (142-424); Red Blood Count 4.56 M/mm3 (4.60-6.20); Red Cell Distribution Width-SD 50.5 fL; White Blood Count 7.9 K/mm3 (4.8-10.8)
[2025-03-11] MEDS: FUROSEMIDE 40MG/4ML VIAL 40 MG IV (12:25)
[2025-03-11 12:27] LABS: Albumin Level 4.5 g/dl (3.5-5.0); Chloride 106 mmol/L (98-107); Potassium 3.3 mmoL/L (3.5-5.1); Sodium 141 mmol/L (136-145)
--- NOTE | 2025-03-11 12:28 | PC.NURSE ---
XR AT BEDSIDE
[2025-03-11 12:29] LABS: Blood Urea Nitrogen 20 mg/dl (9-20); Creatinine Clearance Estimated 52 mL/min (50-200); Creatinine,Serum 1.50 mg/dl (0.66-1.25); Estimated Glomerular Filt Rate 45 ml/min (>60); GFR (African American) 54 ML/MIN (>60)
[2025-03-11 12:30] LABS: Alanine Aminotransferase 20 U/L (12-78); Albumin/Globulin Ratio 1.7 (1.1-1.8); Alkaline Phosphatase 67 U/L (38-126); Anion Gap 6.3 mEq/L (5-15); Aspartate Amino Transferase 27 U/L (17-59); Bilirubin,Total 1.2 mg/dl (0.2-1.3); Calcium 10.5 mg/dl (8.4-10.2); Carbon Dioxide 32 mmol/L (22.0-30.0); Globulin 2.7 g/dL (1.3-3.2); Glucose 103 mg/dl (74-100); Total Protein,Serum 7.2 g/dl (6.3-8.2)
[2025-03-11 12:39] LABS: NT Pro Brain Natriuretic Pep. 6460 pg/mL (0-450)
[2025-03-11 12:42] LABS: Troponin I 0.03 ng/ml (0.00-0.034)
--- NOTE | 2025-03-11 12:56 | PC.NURSE ---
DR MEHTA SPEAKING WITH DR VARGAS
--- NOTE | 2025-03-11 13:00 | PC.NURSE ---
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 Pending bed assignment
--- NOTE | 2025-03-11 13:03 | EXP.HP ---
History of Present Illness *Admission Date: 03/11/25 *Reason for visit:: Short of breath, orthopnea *History of present illness: Mr. Burks is a 79-year-old male with history of CAD, HFpEF, hypertension, dementia, A-fib on Eliquis. EF 50% in May 2024. He presented to cardiology clinic today for evaluation with concern for CHF. Reports that he has been having increased shortness of breath and swelling in his legs over the past several weeks. About 2 weeks ago he was started on diuretics by his PCP unfortunately he has not had desired response. He presented to [facility] yesterday and they referred him to cardiology today. On arrival, was found to be short of breath and was sent to the ER at [facility] for evaluation. On workup in the ER, patient found to be frankly overloaded White count normal at 7.9, dyspneic with exertion. Positive for orthopnea. Potassium 3.3. Creatinine 1.5. Troponin 0.03. BNP elevated at 6400. Chest imaging showing small effusions. Medicine consulted for admission and further management of heart failure and volume overload. Patient received 40 mg IV Lasix in the ER. Stable on room air at the time of my assessment on arrival to the floor. Denies chest pain, nausea, vomiting. [facility] Disclaimer: The information contained in this section may have been updated after the patient was seen, as this information can be updated by other users. Medical History (Updated 03/11/25 @ 16:48 by Eric Burciaga MD) CHF NYHA class III HFrEF (heart failure with reduced ejection fraction) Complex sleep apnea syndrome Dementia Memory changes Ex-smoker CAD (coronary artery disease) Enlarged prostate History of kidney stones COPD (chronic obstructive pulmonary disease) Hyperlipidemia Hypertension Surgical History History of heart artery stent Family History Other Alcoholism Diabetes Social History Smoking Status: Never smoker alcohol intake: former substance use type: denies use current occupational status: retired Travel in the last 8 weeks?: None household members: spouse and children housing: house lives independently: No marital status: number of children: 5 current occupational exposures/hazards: No caffeine: Yes Have you lived/traveled outside US in past 30 days?: No Contact w/someone who lives/traveled outside US past 30 days?: No Exposure to someone with infectious disease in past 14 days?: No Do you have a fever (greater than 100.4 F or 38 C)?: No Have you tested positive for COVID-19?: No Exposed to someone with COVID-19 in past 14 days?: No Do you have a sore throat?: No Do you have a cough?: No Do you have any weakness?: No Do you have any diarrhea?: No Are you experiencing any unusual bleeding?: No Do you have any muscle aches/pain?: No Do you have any abdominal pain?: No Are you experiencing loss of taste or smell?: No Other Medical History Have you received the Flu Vaccine for this season: Yes Have you received the Pneumonia Vaccine: Yes Meds Home Medications and Allergies Home Medications ?Medication ?Instructions ?Recorded ?Confirmed ?Type apixaban 5 mg tablet (Eliquis) 5 mg PO BID Blood thinner 12/14/21 03/11/25 History clopidogrel 75 mg tablet (Plavix) 75 mg PO DAILY 12/14/21 03/11/25 History famotidine 20 mg tablet 20 mg PO BID 03/10/23 03/11/25 History memantine 10 mg tablet 10 mg PO BID 11/15/23 03/11/25 History donepezil 5 mg tablet 5 mg PO HS 03/26/24 03/11/25 History brexpiprazole 1 mg tablet (Rexulti) 1 mg PO DAILY 03/11/25 03/11/25 History finasteride 5 mg tablet 5 mg PO DAILY 03/11/25 03/11/25 History furosemide 20 mg tablet (Lasix) 20 mg PO DAILY 03/11/25 03/11/25 History rosuvastatin 40 mg tablet 40 mg PO DAILY 03/11/25 03/11/25 History tamsulosin 0.4 mg capsule 0.4 mg PO DAILY 03/11/25 03/11/25 History New Prescriptions to Start Prescriptions: Allergies Allergy/AdvReac Type Severity Reaction Status Date / Time loratadine (From Claritin) Allergy Mild rash Verified 03/11/25 10:58 naproxen Allergy Mild Rash Verified 03/11/25 10:58 codeine Allergy Unknown Rash Verified 03/11/25 10:58 Penicillins Allergy Unknown Rash Verified 03/11/25 10:58 Iodinated Contrast Media AdvReac Mild Hives Verified 03/11/25 10:58 ketorolac (From Toradol) AdvReac Mild Rash Verified 03/11/25 10:58 strawberry AdvReac Mild Rash Verified 03/11/25 10:58 Exam Data for Last 24 hours Vital signs and Labs for Last 24 Hours: Temp Pulse Resp BP Pulse Ox O2 Del Method 98.4 F 81 20 134/78 96 Room Air 03/11/25 12:05 03/11/25 12:05 03/11/25 12:05 03/11/25 12:05 03/11/25 12:05 03/11/25 12:05 Laboratory Results - last 24 hr 03/11/25 12:05: WBC 7.9, RBC 4.56 L, Hgb 13.1 L, Hct 41.8 L, MCV 91.7, MCH 28.7, MCHC 31.3 L, RDW 14.9, Plt Count 188, MPV 11.1 H, Neut % (Auto) 70.5, Lymph % (Auto) 19.2, [place] % (Auto) 9.3, Eos % (Auto) 0.4, Baso % (Auto) 0.3, Neut # (Auto) 5.6, Lymph # (Auto) 1.5, [place] # (Auto) 0.7, Eos # (Auto) 0.0, Baso # (Auto) 0.0, Sodium 141, Potassium 3.3 L, Chloride 106, Carbon Dioxide 32 H, Anion Gap 6.3, BUN 20, Creatinine 1.50 H, Estimated Creat Clear 52, Estimated GFR 45 L, Est GFR ( Amer) 54 L, Glucose 103 H, Calcium 10.5 H, Total Bilirubin 1.2, AST 27, ALT 20, Alkaline Phosphatase 67, Troponin I 0.03, NT-Pro-B Natriuret Pep 6460 H, Total Protein 7.2, Albumin 4.5, Globulin 2.7, Albumin/Globulin Ratio 1.7 I & O for Last 24 hours: Intake & Output 03/08/25 03/09/25 03/10/25 03/11/25 23:59 23:59 23:59 23:59 Weight 95.254 kg Constitutional Constitutional: no acute distress, obese, chronically ill appearing and cooperative *Routine HEENT Exam Head: Present normocephalic Eye: Present EOMI and PERRL ENT: Present mucous membranes moist *Routine Neck Exam Neck: Present supple; Absent lymphadenopathy *Routine Respiratory Exam Respiratory: Present CTA bilaterally; Absent rhonchi, wheezes or crackles *Routine Cardiovascular Exam Cardiovascular: Present irregularly irregular; Absent murmur *Routine Abdominal Exam Abdominal: Present soft and normoactive bowel sounds; Absent tenderness *Routine Rectal Exam Rectal:: deferred *Routine Genitalia Exam Genitalia:: deferred *Routine Extremities Exam Extremities: Present edema (2+ to knees); Absent cyanosis or clubbing *Routine Skin Exam Skin: Present warm; Absent rash *Routine Neurological Exam Neurological: Present alert and moving all extremities; Absent altered mental status Comments: Oriented to self and place. Pleasant on exam. Hard of hearing. Assessment and Plan *Assessment and plan (1) HFrEF (heart failure with reduced ejection fraction): Status: Acute Category: Medical Code(s): I50.20 - Unspecified systolic (congestive) heart failure Plan: Acute on chronic HFrEF exacerbation (2) Dementia: Problem Comment: Short-term memory impairment, episodic confusion, disorientation associated with functional decline. Unable to complete Mini-Mental status due to difficulty with reading and writing. Multifactorial including chronic A. fib, cardiomyopathy, hypertension, chronic hypoxemia. 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 Status: Chronic Qualifiers: Dementia behavioral or psychological symptom: without behavioral, psychotic, or mood disturbance or anxiety Dementia severity: moderate Dementia type: vascular dementia Qualified Code(s): F01.B0 - Vascular dementia, moderate, without behavioral disturbance, psychotic disturbance, mood disturbance, and anxiety Category: Medical Code(s): F03.90 - Unspecified dementia, unspecified severity, without behavioral disturbance, psychotic disturbance, mood disturbance, and anxiety (3) Obstructive sleep apnea hypopnea, severe: Problem Comment: 09/30/22: He is on AutoPap 10/14 cm, Ramp 4 cm full facemask, JUN Raza. Unable to tolerate constant pressure, difficulty with exhalation and high pressure leaks. Complining of feeling smother with initial pressure, (Ramp 4 cm). Compliance equal and hours: 6.7%. Average usage: 2 hours. AHI 3.3, central apnea index 2.6. Average high leak: 40 hours and 22 minutes. Compliance 03/26/2022 through 03/30/2002: Days of use: 100%, average usage: 6 hours and 8 minutes, usage equal or greater than 4 hours: 80%. AHI 3.8. Average pressure 9 cm. Status: Chronic Category: Medical Code(s): G47.33 - Obstructive sleep apnea (adult) (pediatric) (4) Atrial fibrillation: Problem Comment: On Eliquis, Plavix Status: Chronic Qualifiers: Atrial fibrillation type: persistent (not longstanding) Qualified Code(s): I48.19 - Other persistent atrial fibrillation Category: Medical Code(s): I48.91 - Unspecified atrial fibrillation (5) Hypertension: Status: Chronic Qualifiers: Hypertension type: primary hypertension Qualified Code(s): I10 - Essential (primary) hypertension Category: Medical Code(s): I10 - Essential (primary) hypertension (6) CAD (coronary artery disease): Status: Chronic Qualifiers: Associated angina: without angina Coronary Disease-Associated Artery/Lesion type: [place] artery [place] vs. transplanted heart: [place] heart Qualified Code(s): I25.10 - Atherosclerotic heart disease of [place] coronary artery without angina pectoris Category: Medical Code(s): I25.10 - Atherosclerotic heart disease of [place] coronary artery without angina pectoris (7) CHF NYHA class III: Status: Acute Category: Medical Code(s): I50.9 - Heart failure, unspecified (8) Obesity (BMI 30.0-34.9): Status: Chronic Category: Medical Code(s): E66.811 - Obesity, class 1 Plan 79-year-old male who presented to cardiology clinic with worsening shortness of breath and swelling in his legs. Sent to the ER for further evaluation. Found to be in heart failure exacerbation. Discussed case with ER physician, request admission for inpatient treatment including diuresis of his heart failure exacerbation. I agreed to admit for further care. Cardiology consulted to assist with management. Problems addressed as follows: Acute HFrEF Atrial fibrillation -Echo obtained today showing EF 25 to 30%. Previous echo earlier this year in May with EF of 50%. Has near akinesis of the basal inferoseptal, septal and anteroseptal LV rosario. The septum is asynchronous. Mild RV dilation with normal RV function. Mild to moderate AI, RVSP 40-45 -Initiate on Lasix, 80 mg IV twice daily. Aggressive diuresis to improve volume status. -Will look to add heart failure medications as patient tolerates for GDMT. -Heart rate is fluctuating from 80s to 130s today. Will administer one-time dose of metoprolol succinate 25 mg and monitor for response, caution with risk for cardiogenic shock. -Chest imaging obtained, per my review of small bilateral pleural effusions. -Plan for LifeVest at discharge due to reduced ejection fraction -Consider left heart cath after diuresis for evaluation of wall motion abnormalities and new HFrEF - Continue Plavix 75 mg p.o. daily and rosuvastatin 40 mg p.o. daily - Continue Eliquis 5 mg twice daily - White count 7.9, hemoglobin 13.1. BUN 20, creatinine 1.5, baseline 1.2. Not elevated enough to be MARYA. - Repeat CBC, CMP, magnesium ordered for the morning - Potassium 3.3 - Trop detectable at 0.03, serial level pending Back pain: Continue home tramadol 50 mg as needed every 6 hours Dementia: Continue memantine 10 mg twice daily, donepezil 5 mg nightly BPH: Continue finasteride 5 mg and tamsulosin 0.4 mg nightly Hyperlipidemia/CAD: Continue Crestor 40 mg daily, continue Plavix 75 mg daily Full code Cardiac diet Eliquis
--- NOTE | 2025-03-11 13:49 | EXP.CARD.CON ---
History of Present Illness History of Present Illness Consult date: 03/11/25 Requesting physician: Eric Burciaga Consult reason: shortness of breath Chief complaint: Shortness of breath History of present illness: Leroy Burks is an 79-year-old white male with a past medical history of coronary artery disease status post stenting in 2021 and medical management heart cath in May 2024, hypertension, hyperlipidemia, dementia, A-fib on Eliquis and a history of HFpEF with an EF of 50 in May 2024 who presented to [facility] ER from cardiology clinic with concerns for heart failure exacerbation. Family reports patient was in [facility] last night with complaints of shortness of breath and was started on diuretics. Patient had follow-up in cardiology clinic this morning and was sent to the ER here for concern for volume overload. EKG shows A-fib at a rate of 84 and is negative for STEMI. Labs as follow: WBC 7.9, hemoglobin 13.1, sodium 141, potassium 3.3, BUN 20, creatinine 1.5 (baseline 1.2-1.4), troponin negative and proBNP 6460. Chest x-ray shows stable cardiomegaly with no overt CHF present. Airspace consolidation of the left lung base more likely corresponds to atelectatic changes. Slight blunting of the right and left costophrenic angle are suggestive of small bilateral pleural effusionspresent. Patient was started on Lasix and admitted for volume overload. Echocardiogram is pending. [facility] Disclaimer: The information contained in this section may have been updated after the patient was seen, as this information can be updated by other users. Medical History (Updated 03/11/25 @ 14:58 by Cecilia Mccollum RN) CHF NYHA class III HFrEF (heart failure with reduced ejection fraction) Complex sleep apnea syndrome Dementia Memory changes Ex-smoker CAD (coronary artery disease) Enlarged prostate History of kidney stones COPD (chronic obstructive pulmonary disease) Hyperlipidemia Hypertension Surgical History History of heart artery stent Family History Other Alcoholism Diabetes Social History Smoking Status: Never smoker alcohol intake: former substance use type: denies use current occupational status: retired Travel in the last 8 weeks?: None household members: spouse and children housing: house lives independently: No marital status: number of children: 5 current occupational exposures/hazards: No caffeine: Yes Have you lived/traveled outside US in past 30 days?: No Contact w/someone who lives/traveled outside US past 30 days?: No Exposure to someone with infectious disease in past 14 days?: No Do you have a fever (greater than 100.4 F or 38 C)?: No Have you tested positive for COVID-19?: No Exposed to someone with COVID-19 in past 14 days?: No Do you have a sore throat?: No Do you have a cough?: No Do you have any weakness?: No Do you have any diarrhea?: No Are you experiencing any unusual bleeding?: No Do you have any muscle aches/pain?: No Do you have any abdominal pain?: No Are you experiencing loss of taste or smell?: No Exam Data for Last 24 hours Vital signs and Labs for Last 24 Hours: Temp Pulse Resp BP Pulse Ox O2 Del Method 98.0 F 87 20 143/85 H 95 Room Air 03/11/25 13:46 03/11/25 13:46 03/11/25 13:46 03/11/25 13:46 03/11/25 13:00 03/11/25 13:46 Laboratory Results - last 24 hr 03/11/25 12:05: WBC 7.9, RBC 4.56 L, Hgb 13.1 L, Hct 41.8 L, MCV 91.7, MCH 28.7, MCHC 31.3 L, RDW 14.9, Plt Count 188, MPV 11.1 H, Neut % (Auto) 70.5, Lymph % (Auto) 19.2, [place] % (Auto) 9.3, Eos % (Auto) 0.4, Baso % (Auto) 0.3, Neut # (Auto) 5.6, Lymph # (Auto) 1.5, [place] # (Auto) 0.7, Eos # (Auto) 0.0, Baso # (Auto) 0.0, Sodium 141, Potassium 3.3 L, Chloride 106, Carbon Dioxide 32 H, Anion Gap 6.3, BUN 20, Creatinine 1.50 H, Estimated Creat Clear 52, Estimated GFR 45 L, Est GFR ( Amer) 54 L, Glucose 103 H, Calcium 10.5 H, Total Bilirubin 1.2, AST 27, ALT 20, Alkaline Phosphatase 67, Troponin I 0.03, NT-Pro-B Natriuret Pep 6460 H, Total Protein 7.2, Albumin 4.5, Globulin 2.7, Albumin/Globulin Ratio 1.7 I & O for Last 24 hours: Intake & Output 03/08/25 03/09/25 03/10/25 03/11/25 23:59 23:59 23:59 23:59 Weight 210 lb Meds Home Medications and Allergies Home Medications ?Medication ?Instructions ?Recorded ?Confirmed ?Type apixaban 5 mg tablet (Eliquis) 5 mg PO BID Blood thinner 12/14/21 03/11/25 History clopidogrel 75 mg tablet (Plavix) 75 mg PO DAILY 12/14/21 03/11/25 History famotidine 20 mg tablet 20 mg PO BID 03/10/23 03/11/25 History memantine 10 mg tablet 10 mg PO BID 11/15/23 03/11/25 History donepezil 5 mg tablet 5 mg PO HS 03/26/24 03/11/25 History finasteride 5 mg tablet 5 mg PO DAILY 03/11/25 03/11/25 History furosemide 20 mg tablet (Lasix) 20 mg PO DAILY 03/11/25 03/11/25 History gabapentin 100 mg capsule 100 mg PO DAILY 03/11/25 03/11/25 History rosuvastatin 40 mg tablet 40 mg PO DAILY 03/11/25 03/11/25 History tamsulosin 0.4 mg capsule 0.4 mg PO DAILY 03/11/25 03/11/25 History New Prescriptions to Start Prescriptions: Allergies Allergy/AdvReac Type Severity Reaction Status Date / Time loratadine (From Claritin) Allergy Mild rash Verified 03/11/25 10:58 naproxen Allergy Mild Rash Verified 03/11/25 10:58 codeine Allergy Unknown Rash Verified 03/11/25 10:58 Penicillins Allergy Unknown Rash Verified 03/11/25 10:58 Iodinated Contrast Media AdvReac Mild Hives Verified 03/11/25 10:58 ketorolac (From Toradol) AdvReac Mild Rash Verified 03/11/25 10:58 strawberry AdvReac Mild Rash Verified 12/15/25 10:58 Assessment and Plan *Assessment and plan (1) Atrial fibrillation: Problem Comment: On Eliquis, Plavix Status: Chronic Qualifiers: Atrial fibrillation type: persistent (not longstanding) Qualified Code(s): I48.19 - Other persistent atrial fibrillation Category: Medical Code(s): I48.91 - Unspecified atrial fibrillation (2) HFrEF (heart failure with reduced ejection fraction): Status: Acute Category: Medical Code(s): I50.20 - Unspecified systolic (congestive) heart failure (3) Atrial fibrillation, new onset: Status: Acute Category: Medical Code(s): I48.91 - Unspecified atrial fibrillation Plan Acute HFrEF History of CAD EF 50 05/2024, repeat echo shows an EF of 25 to 30%. Near akinesis of the basal inferoseptal, septal and anteroseptal LV rosario. The septum is asynchronous. Mild RV dilation with normal RV function. Mild to moderate AI, RVSP 40-45 Bilateral LE edema present Small bilateral pleural effusions present Lasix started per primary service Will diurese patient before starting guideline directed medical therapy for HFrEF as patient has been sensitive to medications in the past and becomes hypotensive easily. Patient will need to be diuresed and then we will proceed with left heart catheterization to evaluate for coronary artery disease in the setting of new HFrEF. Plan for LifeVest prior to discharge- Order placed Continue Plavix 75 mg p.o. daily and rosuvastatin 40 mg p.o. daily History of A-fib Currently A-fib rate controlled Continue Eliquis 5 mg p.o. twice daily CV summary 03/11/2025: New onset heart failure reduced EF with an EF of 25 to 30%. Patient will need left heart catheterization once patient has been fully diuresed. Will start guideline directed medical therapy tomorrow pending response to diuresis. Anticipate left heart catheterization tomorrow as patient will tolerate.
[2025-03-11] MEDS: POTASSIUM CHLORIDE 20MEQ TAB 40 MEQ PO (14:56)
--- NOTE | 2025-03-11 15:09 | DIET.NUTRFU ---
consulted secondary to chewing or swallowing issues. He does not wear teeth. He is [place], son was present but was not able to verify baseline diet. He did indicate he has trouble chewing. Agreeable to chopped diet, took dinner order. Will monitor po intake
[2025-03-11] MEDS: FUROSEMIDE 40MG/4ML VIAL 80 MG IV (15:46)
[2025-03-11 16:09] LABS: Troponin I 0.03 ng/ml (0.00-0.034)
[2025-03-11] MEDS: METOPROLOL SUCCINATE XL 25MG TABLET 25 MG PO (16:35)
[2025-03-11] MEDS: TRAMADOL 50MG TABLET 50 MG PO (16:35)
--- NOTE | 2025-03-11 17:34 | PC.NURSE ---
Pt has been tachycardic this shift 130's-170's. Hospitalist notified.
[2025-03-11 19:34] LABS: Troponin I 0.04 ng/ml (0.00-0.034)
[2025-03-11] MEDS: APIXABAN 5MG TABLET 5 MG PO (20:03)
[2025-03-11] MEDS: FAMOTIDINE 20MG TABLET 20 MG PO (20:03)
[2025-03-11] MEDS: MEMANTINE 10MG TABLET 10 MG PO (20:03)
[2025-03-11] MEDS: ATORVASTATIN 40MG TABLET 80 MG PO (20:03)
[2025-03-12] VITALS (21 sets, daily range): BP systolic 111–158; BP diastolic 56–95; PULSE 50–89; RESP 14–20; TEMP 36.5–36.8; O2SAT 90–98; BMI 32.7
--- NOTE | 2025-03-12 | IR_ITS ---
APPROVED REPORT Patient Location: Inpatient Alterations Tailor: Emmanuel Hale, RT (R) PROCEDURES Left heart catheterization Left ventriculogram Selective coronary angiogram INDICATION Known coronary artery disease, Systolic congestive heart failure, Informed consent was obtained prior to the procedure. COMPLICATIONS None Estimated Blood Loss: Less than 10 mls TECHNIQUE One percent lidocaine used to anesthetize the right anterior aspect of the wrist. The right radial artery was accessed via the Seldinger technique. A 6 [place] sheath was placed in the right radial artery. 2.5 mg of Verapamil, 800 mcg of nitroglycerin, 1mg Lidocaine and 5000 U Heparin were given through the arterial sheath. The JL3 catheter was also used to perform left heart catheterization, left ventriculogram and selective coronary angiogram. At the end of the procedure the sheath was removed good hemostasis was achieved using Traclet band, patient was transferred to the postop holding area in stable condition. ANGIOGRAPHIC RESULTS The left main artery Normal The left anterior descending artery Has a stent in the proximal to mid segment which is widely patent with minimal in-stent restenosis and excellent proximal distal transitioning. The remaining vessel is widely patent The circumflex artery Large dominant gives rise to a large ramus intermedius which has proximal 40 to 50% stenosis followed by mid vessel 40% stenosis. The circumflex artery has mild diffuse 10% luminal regularities The right coronary artery Nondominant and has mid vessel 30% stenosis with distal 20 and 30% stenosis The HUI ventriculogram reveals Dilated ventricle ejection fraction 20% The left ventricular end-diastolic pressure 25 mmHg IMPRESSION Coronary arteries as described above Dilated ventricle with severely reduced ejection fraction Elevated LVEDP PLAN 1. Medical management for coronary artery disease 2. GDMT for systolic heart failure 3. Consider LifeVest if patient is a candidate 4. Consider AICD if patient is a candidate based on duration of GDMT etc. Electronically signed by : Venancio Romo MD 03/12/2025 12:09:07
[2025-03-12 03:50] LABS: Hepatitis C Ab Qual. W/ RFX NEGATIVE (Negative)
--- NOTE | 2025-03-12 04:29 | PC.NURSE ---
Pt has remained confused, only alert to self. [place] has remained in place. He has transferred from the chair to the bed requiring x1 assist. He has attempted to get out of bed multiple time. Family member has remained at bedside. No complaints at this time, bed alarm in place.
[2025-03-12 06:43] LABS: Hematocrit 40.5 % (42.0-52.0); Hemoglobin 12.8 g/dL (14.1-18.0); Immature Granulocytes % 0.1 %; Mean Corpuscular HGB Conc 31.6 g/dL (31.8-35.4); Mean Corpuscular Hemoglobin 28.6 pg (27.0-31.2); Mean Corpuscular Volume 90.4 fl (80-94); Nucleated Red Blood Cells % 0 %; Platelet Count 180 K/mm3 (142-424); Red Blood Count 4.48 M/mm3 (4.60-6.20); Red Cell Distribution Width-SD 48.6 fL; White Blood Count 8.0 K/mm3 (4.8-10.8)
[2025-03-12 06:55] LABS: Albumin Level 4.1 g/dl (3.5-5.0); Chloride 104 mmol/L (98-107); Sodium 140 mmol/L (136-145)
[2025-03-12 06:58] LABS: Alanine Aminotransferase 16 U/L (12-78); Albumin/Globulin Ratio 1.5 (1.1-1.8); Alkaline Phosphatase 68 U/L (38-126); Anion Gap 11.9 mEq/L (5-15); Aspartate Amino Transferase 44 U/L (17-59); Bilirubin,Total 1.4 mg/dl (0.2-1.3); Blood Urea Nitrogen 20 mg/dl (9-20); Calcium 10.0 mg/dl (8.4-10.2); Carbon Dioxide 27 mmol/L (22.0-30.0); Cholesterol 107 mg/dl (140-200); Creatinine Clearance Estimated 54 mL/min (50-200); Creatinine,Serum 1.40 mg/dl (0.66-1.25); Estimated Glomerular Filt Rate 49 ml/min (>60); GFR (African American) 59 ML/MIN (>60); Globulin 2.7 g/dL (1.3-3.2); Glucose 111 mg/dl (74-100); Total Protein,Serum 6.8 g/dl (6.3-8.2); Triglycerides 67 mg/dl (30-150)
[2025-03-12 06:59] LABS: HDL Cholesterol 43 mg/dl (40-60); Magnesium 2.1 mg/dl (1.6-2.3)
[2025-03-12 07:02] LABS: Potassium 2.9 mmoL/L (3.5-5.1)
--- NOTE | 2025-03-12 07:04 | PC.NURSE ---
Lab called to report a critical potassium of 2.9. Hospitalist notified.
[2025-03-12] MEDS: TAMSULOSIN 0.4MG CAPSULE 0.4 MG PO (08:09)
[2025-03-12] MEDS: CLOPIDOGREL 75MG TAB 75 MG PO (08:09)
[2025-03-12] MEDS: FAMOTIDINE 20MG TABLET 20 MG PO ×2 (08:09→21:23)
[2025-03-12] MEDS: GABAPENTIN 100MG CAPSULE 100 MG PO (08:10)
[2025-03-12] MEDS: POTASSIUM CHLORIDE 20MEQ TAB 40 MEQ PO (08:10)
[2025-03-12] MEDS: APIXABAN 5MG TABLET 5 MG PO ×2 (08:10→21:23)
[2025-03-12] MEDS: MEMANTINE 10MG TABLET 10 MG PO ×2 (08:10→21:23)
[2025-03-12] MEDS: FINASTERIDE 5MG TABLET 5 MG PO (08:11)
[2025-03-12] MEDS: FUROSEMIDE 40MG/4ML VIAL 80 MG IV ×2 (08:11→15:12)
--- NOTE | 2025-03-12 08:15 | HMH.PTEV ---
Physical Therapy Evaluation Rehab PT IP Evaluation Start: 03/11/25 14:01 Freq: ONCE Status: Active Protocol: Document 03/12/25 08:09 SHWETHA (Rec: 03/12/25 08:15 SHWETHA [id number]) Subjective/History History History Per H&P: Mr. Burks is a 79-year-old male with history of CAD, HFpEF, hypertension, dementia, A-fib on Eliquis . EF 50% in May 2024. He presented to cardiology clinic today for evaluation with concern for CHF. Reports that he has been having increased shortness of breath and swelling in his legs over the past several weeks. About 2 weeks ago he was started on diuretics by his PCP unfortunately he has not had desired response. He presented to [facility] yesterday and they referred him to cardiology today. On arrival, was found to be short of breath and was sent to the ER at [facility] for evaluation. On workup in the ER, patient found to be frankly overloaded White count normal at 7.9, dyspneic with exertion. Positive for orthopnea. Potassium 3.3. Creatinine 1.5 . Troponin 0.03. BNP elevated at 6400. Chest imaging showing small effusions. Medicine consulted for admission and further management of heart failure and volume overload. Patient received 40 mg IV Lasix in the ER. Stable on room air at the time of my assessment on arrival to the floor. Denies chest pain, nausea, vomiting. Subjective Subjective PLOF: IND with household ambulation using a SPC. Pt also uses a scooter and rollator. HOME: Lives with his in a home with ramped entrance. ASSIST: provides 18/10 assist d/t fall risk and hx of dementia. [facility] How much help from another person do you currently need... Turning from your None back to your side while in a flat bed without using bedrails? Moving from lying on None back to sitting on the side of a flat bed without using bedrails? Moving to and from a None bed to a chair ( including a wheelchair)? Standing up from a None chair using your arms? (e.g., wheelchair, bedside chair) Walking in hospital A little room? Climbing 3-5 steps A little with a railing? Mobility Score 22 Mobility Level [place] [id number] Walk 25 feet or more Mobility Calculator Rehab PT IP Eval Objective Appearance Patient Behavior Appropriate,Cooperative Patient Orientation Person Difficulty following none instructions Speech Pattern Clear Ambulation Patient Able to Yes Ambulate Ambulation Observation IP General Gait Narrow Based Gait Pattern Observation Ambulation Distance 20 (feet) Ambulation Assistive Straight Cane Device Ambulation Ability Contact Guard/Hand Hold Balance Ability to Arise Able, uses arms to help Sitting Balance Steady, safe Standing Balance Steady, wide stance Dynamic Sitting Good Balance Ability Dynamic Standing Fair Balance Ability Transfers Bed Transfer Ability Minimal x 1 (25% assist) Sit to Stand Bed Minimal x 1 (25% assist) Transfer Ability Rehab PT IP prob,goals,plan Problems Date of Evaluation: 03/12/25 PT IP Problems Transfers,Gait,Balance,Self care,Safety Rehab Potential Rehab Potential Good Plan PT Intervention Plan Transfers,Gait,Balance,Self care,Safety,Therapeutic Exercise PT Plan Frequency Daily Duration Goals Met Discharge Goals Bed Transfer Ability Independent Sit to Stand Chair Independent Transfer Ability Ambulation Assistive Straight Cane Device Ambulation Distance 100 (feet) Discharge Plan PT Discharge Plan Initial PT evaluation performed. Pt presents slightly below his reported baseline in mobility and would benefit from daily skilled PT while at [facility] to address mobility deficits and improve safety with ambulation. PT recommending PT upon d/c to address deficits. Eval Complexity Eval Charge Codes 17338 - Moderate Complexity PHYSICIAN CERTIFICATION: I certify the specified therapy services for Leroy Burks are required, authorized, and reviewed every 30 days.
--- NOTE | 2025-03-12 08:32 | SW/DCPLANNER ---
Addendum entered by Penny López 03/13/25 11:11: Patient/family have been updated that home health is not an option at this time due to insurance. stated that she did not feel patient needs home health or outpatient services at this time. stated patient has all appropriate DME at home. Patient will discharge home today. Addendum entered by Kate Fletcher 03/12/25 13:10: [facility] is at their capacity and is not able to accept patient. Lizbeth Rain Addendum entered by Kate Fletcher 03/12/25 11:59: i faxed patient's information to [facility] and will update once i hear back if they can accept patient or not. Lizbeth Rain Original Note: I spoke w/ patient and his regarding plans once medically stable for discharge. PT evaluated patient and recommended home health services. Patient/ are agreeable to home health w/ no agency preference as long as insurance covers services. CM will reach out to home health agencies regarding services and insurance. Per this patient has rollator, walker, cane and BSC at home. Discharge date is unknown at this time. CM will continue to follow up.
--- NOTE | 2025-03-12 10:02 | P.PN_ITS ---
Subjective Subjective Date: 03/12/25 Time: 08:00 Principal diagnosis: Volume overload, Acute HFrEF Interval history: Patient doing well this morning. Morning labs reviewed, potassium 2.9. Kidney function improved to 1.4. Exam Data for Last 24 hours Vital signs and Labs for Last 24 Hours: Temp Pulse Resp BP Pulse Ox O2 Del Method 98.2 F 80 19 116/76 94 L Room Air 03/12/25 08:00 03/12/25 08:07 03/12/25 08:00 03/12/25 08:00 03/12/25 08:00 03/12/25 09:00 Laboratory Results - last 24 hr 03/11/25 12:05: WBC 7.9, RBC 4.56 L, Hgb 13.1 L, Hct 41.8 L, MCV 91.7, MCH 28.7, MCHC 31.3 L, RDW 14.9, Plt Count 188, MPV 11.1 H, Neut % (Auto) 70.5, Lymph % (Auto) 19.2, [place] % (Auto) 9.3, Eos % (Auto) 0.4, Baso % (Auto) 0.3, Neut # (Auto) 5.6, Lymph # (Auto) 1.5, [place] # (Auto) 0.7, Eos # (Auto) 0.0, Baso # (Auto) 0.0, Sodium 141, Potassium 3.3 L, Chloride 106, Carbon Dioxide 32 H, Anion Gap 6.3, BUN 20, Creatinine 1.50 H, Estimated Creat Clear 52, Estimated GFR 45 L, Est GFR ( Amer) 54 L, Glucose 103 H, Calcium 10.5 H, Total Bilirubin 1.2, AST 27, ALT 20, Alkaline Phosphatase 67, Troponin I 0.03, NT-Pro-B Natriuret Pep 6460 H, Total Protein 7.2, Albumin 4.5, Globulin 2.7, Albumin/Globulin Ratio 1.7, HCV Ab DAPHNEY w/Rflx PCR Qn Negative, HIV Ag/Ab Combo Qual Negative 03/11/25 15:24: Troponin I 0.03 03/11/25 18:40: Troponin I 0.04 H 03/12/25 05:51: WBC 8.0, RBC 4.48 L, Hgb 12.8 L, Hct 40.5 L, MCV 90.4, MCH 28.6, MCHC 31.6 L, RDW 14.7, Plt Count 180, MPV 11.3 H, Neut % (Auto) 65.6, Lymph % (Auto) 23.9, [place] % (Auto) 9.3, Eos % (Auto) 0.5, Baso % (Auto) 0.6, Neut # (Auto) 5.2, Lymph # (Auto) 1.9, [place] # (Auto) 0.7, Eos # (Auto) 0.0, Baso # (Auto) 0.1, Sodium 140, Potassium 2.9 L*, Chloride 104, Carbon Dioxide 27, Anion Gap 11.9, BUN 20, Creatinine 1.40 H, Estimated Creat Clear 54, Estimated GFR 49 L, Est GFR ( Amer) 59, Glucose 111 H, Calcium 10.0, Magnesium 2.1, Total Bilirubin 1.4 H, AST 44 D, ALT 16, Alkaline Phosphatase 68, Total Protein 6.8, Albumin 4.1, Globulin 2.7, Albumin/Globulin Ratio 1.5, Triglycerides 67, Cholesterol 107 L, LDL Cholesterol Direct 54.18 L, VLDL Cholesterol 13, HDL Cholesterol 43, Cholesterol/HDL Ratio 2.5 I & O for Last 24 hours: Intake & Output 03/09/25 03/10/25 03/11/25 03/12/25 23:59 23:59 23:59 23:59 Intake Total 120 / 270 150 / 150 Output Total 600 / 800 200 / 200 Balance -480 / -530 -50 / -50 Weight 204 lb 5 oz 203 lb 9.6 oz Constitutional Constitutional: no acute distress *Routine Respiratory Exam Respiratory: Present CTA bilaterally and symmetric chest movement *Routine Cardiovascular Exam Cardiovascular: Present RRR, Normal S1 and Normal S2 *Routine Abdominal Exam Abdominal: Present soft and normoactive bowel sounds; Absent tenderness *Routine Extremities Exam Extremities: Present full ROM and normal capillary refill; Absent edema *Routine Skin Exam Skin: Present intact, dry and warm Detailed Neck Exam: Thyroids Thyroid: Absent bruit Progress Note: A&P Assessment and plan (1) HFrEF (heart failure with reduced ejection fraction): Status: Acute (2) Dementia: Problem details: Short-term memory impairment, episodic confusion, disorientation associated with functional decline. Unable to complete Mini-Mental status due to difficulty with reading and writing. Multifactorial including chronic A. fib, cardiomyopathy, hypertension, chronic hypoxemia. 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 Status: Chronic (3) Obstructive sleep apnea hypopnea, severe: Problem details: 09/30/22: He is on AutoPap 10/14 cm, Ramp 4 cm full facemask, JUN Raza. Unable to tolerate constant pressure, difficulty with exhalation and high pressure leaks. Complining of feeling smother with initial pressure, (Ramp 4 cm). Compliance equal and hours: 6.7%. Average usage: 2 hours. AHI 3.3, central apnea index 2.6. Average high leak: 40 hours and 22 minutes. Compliance 03/26/2022 through 03/30/2002: Days of use: 100%, average usage: 6 hours and 8 minutes, usage equal or greater than 4 hours: 80%. AHI 3.8. Average pressure 9 cm. Status: Chronic (4) Atrial fibrillation: Problem details: On Eliquis, Plavix Status: Chronic (5) Hypertension: Status: Chronic (6) CAD (coronary artery disease): Status: Chronic (7) CHF NYHA class III: Status: Acute (8) Obesity (BMI 30.0-34.9): Status: Chronic Assessment and Plan Assessment and Plan for All Diagnoses:: Acute HFrEF History of CAD EF 50 05/2024, repeat echo shows an EF of 25 to 30%. Near akinesis of the basal inferoseptal, septal and anteroseptal LV rosario. The septum is asynchronous. Mild RV dilation with normal RV function. Mild to moderate AI, RVSP 40-45 Bilateral LE edema present- improving Small bilateral pleural effusions present on admission Lasix started per primary service last night [facility] today-medical managmentment [facility] prior to discharge- Order placed Cotinue Plavix 75 mg p.o. daily and rosuvastatin 40 mg p.o. daily Start Entresto 24/26mg po BID Add aldactone Will add jardiance tomorrow History of A-fib Currently A-fib rate controlled Continue Eliquis 5 mg p.o. twice daily CV summary 03/12/2025: New onset heart failure reduced EF with an EF of 25 to 30%. Continue diuresing. S/p medical managment [facility]. Add entreso and aldactone. Anticipate DC home tomorrow with lifevest. Cardiac meds: Plavix 75 mg p.o. daily Rosuvastatin 40 mg p.o. daily Entresto 24/26 mg p.o. twice daily Aldactone 25 mg p.o. daily Eliquis 5 mg p.o. twice daily
--- NOTE | 2025-03-12 10:24 | HMH.OTEV ---
OT Evaluation Rehab OT IP Evaluation Start: 03/11/25 14:01 Freq: ONCE Status: Active Protocol: Document 03/12/25 09:52 RICK (Rec: 03/12/25 10:24 RICK [id number]) Rehab OT IP Assessment Subjective History Mr. Burks is a 79-year-old male with history of CAD, HFpEF, hypertension, dementia, A-fib on Eliquis. EF 50 % in May 2024. He presented to cardiology clinic today for evaluation with concern for CHF. Reports that he has been having increased shortness of breath and swelling in his legs over the past several weeks. About 2 weeks ago he was started on diuretics by his PCP unfortunately he has not had desired response. [facility] and they referred him to cardiology today. On arrival, was found to be short of breath and was sent to the ER at [facility] for evaluation. On workup in the ER, patient found to be frankly overloaded White count normal at 7.9, dyspneic with exertion. Positive for orthopnea. Potassium 3.3. Creatinine 1.5 . Troponin 0.03. BNP elevated at 6400. Chest imaging showing small effusions. Medicine consulted for admission and further management of heart failure and volume overload. Patient received 40 mg IV Lasix in the ER. Stable on room air at the time of my assessment on arrival to the floor. Denies chest pain, nausea, vomiting. was in the room during session. answered all patient's PLOF with ADLs and fx'l mobility tasks. used straight cane to ambulate within the home. assist with ADLs such as dressing and showering. assist with meal prep tasks. Subjective I can stand. Instructed patient on safety awareness to complete bed mobility from supine->sit @ EOB->STS with usage of RW requiring SUP. Instructed Patient on proper hand and foot placement for STS x5 with SBA. No LOB noted. Assisted Patient from EOB->supine requiring Min A. Left Patient sitting upright in bed with needs met at end of session. Objective Patient Orientation Person,Place,Name,Age Right Upper WFL Extremity Gross ROM Left Upper Extremity WFL Gross ROM Bed Mobility bed mobility - supine/sit Assist Level Minimal x 1 (25% assist) Transfer Training Sit/Stand/Step Transfer Assist Level Contact Guard/Hand Hold Rehab OT IP prob,goals,plan Problems Date of Evaluation: 03/12/25 OT IP Problems Bed Mobility,Transfers,Balance,Self care,Safety Rehab Potential Rehab Potential Good Equipment Needs Assistive Devices Straight Cane Plan OT intervention Plan Bed Mobility,Transfers,Balance,Self care,Safety, Therapeutic Exercise OT Plan Frequency Daily Duration LOS Discharge Goals Bed Mobility Ability Standby Assistance Sit to Stand Chair Supervision/Stand by Transfer Ability Discharge Plan OT Discharge Plan Recommend Patient return home with services. Patient will continue to be seen by OT IP services while here at [facility] with focus on addressing balance deficits and safety awareness with ADLs and fx'l mobility tasks. Eval Complexity Eval Charge Codes 17399 - Low Complexity PHYSICIAN CERTIFICATION: I certify the specified therapy services for Leroy Burks SR are required, authorized, and reviewed every 30 days.
[2025-03-12 10:41] LABS: Microscopic, Urine URINE MICROSCOPIC (MICROSCOPIC)
[2025-03-12] MEDS: TRAMADOL 50MG TABLET 50 MG PO (10:44)
--- OUTSIDE RECORDS SUMMARY | 2025-03-12 10:45 | XMS_ITS | Continuity of Care Document ---
Author Organization [facility] Phone Care Team Providers Care Assistant Manager Bilingual Name Role Phone KALEE HERNANDEZ Admitting KALEE HERNANDEZ Primary Attending KALEE HERNANDEZ Unavailable MONY JULIEN Primary Care ALLERGIES AND ADVERSE REACTIONS ALLERGIES AND ADVERSE REACTIONS Code System Allergy Substance Adverse Reaction Date Reaction (Severity) Comment Status Reported By Updated By 7968 RXNorm Penicillin Adverse reaction to substance Not Specified active [id number] on March 10, 2025 9:20:46 PM [facility] [id number] SNOMED CT Sulfa Antibiotics Adverse reaction to substance Not Specified active [id number] on March 10, 2025 9:20:46 PM [facility] RESULTS Patient: MICHELE Cooper Date of : 1945 1 LABORATORY RESULTS ORDER 200: COMP METABOLIC PA NELLY (LOINC: 54687-4) ORDER DATE: March 10, 2025 8:41:00 PM UT Specimen Source: Serum/Plasm a Specimen Type: Acellular blo od (serum or plasma) specimen PERFORMING LAB: [address] [id number] Result Comment: Final Result Date: March 10, 2025 9:05:00 PM UT (TECH: KSM) LOINC TEST FLAG RESULT REFERENCE RANGE UPDA CHRISTA BY 2951-2 Sodium [Moles/volume ] in Serum or Plasma N 145 mmol/L 136 mmol/L - 145 mmol/L March 10, 2025 9:05:00 PM UTC (TECH: KSM) 2823-3 Potassium [Moles/volume] in Serum or Plasma L 3.3 mmol/L 3.5 mmol/L - 5.1 mmol/L March 10, 2025 9:05:00 PM UTC (TECH: Catchoom) 5-0 Chloride [Moles/volume] in Serum or Plasma N 107 mmol/L 98 mmol/L - 107 mmol/L March 10, 2025 9:05:00 PM UTC (TECH: Catchoom) 2027-9 Carbon dioxide, tota l [Moles/volume] in Serum or Plasma N 31 mmol/L 21 mmol/L - 32 mmol/L March 10, 2025 9:05:00 PM UT (TECH: [facility]) 31284-8 Anion gap 3 in Serum or Plasma N 7.0 March 10, 2025 9:05:00 PM UT (TECH: [facility]) 2345-7 Glucose [Mass/volume ] in Serum or Plasma N 108 mg/dL 70 mg/dL - 110 mg/dL March 10, 2025 9:05:00 PM UT (TECH: [facility]) 3094-0 Urea nitrogen [Mass/volume] in Serum or Plasma N 18 mg/dL 7 mg/dL - 18 mg/dL March 10, 2025 9:05:00 PM UT (TECH: [facility]) 2160-0 Creatinine [Mass/volume] in Serum or Plasma H 1.5 mg/dL 0.8 mg/dL - 1.3 mg/dL March 10, 2025 9:05:00 PM UT (TECH: [facility]) 3097-3 Urea nitrogen/Creatinine [Mass Ratio] in Serum or Plasma N 12.0 - March 10, 2025 9:05:00 PM UT (TECH: [facility]) 07064-0 Glomerular filtratio n rate/1.73 sq M.predicted by Creatinine-based formula (MDRD) L 46 mL/min >60 March 10, 2025 9:05:00 PM UT (TECH: [facility]) 63843-3 Osmolality of Serum or Plasma by calculated by sum of electrolytes H 304 mosm/kg 275 mosm/kg - 301 mosm/kg March 10, 2025 9:05:00 PM UT (TECH: [facility]) 1465-2 Protein [Mass/volume ] in Serum or Plasma N 7.4 g/dL 6.4 g/dL - 8.2 g/dL March 10, 2025 9:05:00 PM [facility] (TECH: C[facility]) 1751-7 Albumin [Mass/volume ] in Serum or Plasma N 3.7 g/dL 3.4 g/dL - 5.0 g/dL March 10, 2025 9:05:00 PM [facility] (TECH: [facility]) 85062-9 Calcium [Mass/volume ] in Serum or Plasma H 10.5 mg/dL 8.5 mg/dL - 10.1 mg/dL March 10, 2025 9:05:00 PM [facility] (TECH: [facility]) 36392-5 Calcium [Mass/volume ] corrected for total protein in Serum or Plasma H 10.7 mg/dL 8.5 mg/dL - 10.1 mg/dL March 10, 2025 9:05:00 PM [facility] (TECH: [facility]) 1975-2 Bilirubin.total [Mass/volume] in Serum or Plasma N 1.0 mg/dL 0.4 mg/dL - 1.5 mg/dL March 10, 2025 9:05:00 PM [facility] (TECH: [facility]) 1920-8 Aspartate aminotransferase [Enzymatic activity/volume] in Serum or Plasma N 20 U/L 15 U/L - 37 U/L March 10, 2025 9:05:00 PM [facility] (TECH: [facility]) 1742-6 Alanine aminotransferase [Enzymatic activity/volume] in Serum or Plasma N 19 U/L 12 U/L - 78 U/L March 10, 2025 9:05:00 PM [facility] (TECH: [facility]) 6768-6 Alkaline phosphatase [Enzymatic activity/volume] in Serum or Plasma N 80 U/L March 10, 2025 9:05:00 PM [facility] (TECH: C[facility]) ORDER 300: CBC AUTO W DIFF ( LOINC: 04522-1) ORDER DATE: March 10, 2025 8:41:00 PM [facility] Specimen Source: Whole Blood Specimen Type: Whole blood s ample PERFORMING LAB: [address] [id number] Result Comment: Final Result Date: March 10, 2025 8:57:00 PM [facility] (TECH: [facility]) LOINC TEST FLAG RESULT REFERENCE RANGE UPDA CHRISTA BY 6690-2 Leukocytes [#/volume] in Blood by Automated count N 7.9 10^3/uL 4.5 10^3/uL - 11.5 10^3/uL March 10, 2025 8:57:00 PM UTC (TECH: [facility]) 789-8 Erythrocytes [#/volume] in Blood by Automated count N 4.68 10^6/uL 4.25 10^6/uL - 5.57 10^6/uL March 10, 2025 8:57:00 PM UTC (TECH: [facility]) 718-7 Hemoglobin [Mass/volume] in Blood L 13.4 g/dL 13.5 g/dL - 17.2 g/dL March 10, 2025 8:57:00 PM UTC (TECH: [facility]) 59861-0 Hematocrit [Volume Fraction] of Blood N 42.6 % 42.0 % - 52.0 % March 10, 2025 8:57:00 PM UTC (TECH: [facility]) 787-2 Erythrocyte mean corpuscular volume [Entitic volume] by Automated count N 91.0 fl 80 fl - 95 fl March 10, 2025 8:57:00 PM UTC (TECH: [facility]) 25080-1 Erythrocyte mean corpuscular hemoglobin [Entitic mass] in Blood from [place] by Automated count N 28.6 pg 27.0 pg - 34.0 pg March 10, 2025 8:57:00 PM UTC (TECH: [facility]) 42853-4 Erythrocyte mean corpuscular hemoglobin concentration [Mass/volume] in Blood from Fetus by Automated count L 31.5 g/dL 32.0 g/dL - 36.0 g/dL March 10, 2025 8:57:00 PM UTC (TECH: [facility]) 70467-1 Platelets [#/volume] in Blood N 171 10^3/uL 150 10^3/uL - 450 10^3/uL March 10, 2025 8:57:00 PM UTC (TECH: [facility]) 01096-5 Erythrocyte distribution width [Ratio] N 14.6 % 12.3 % - 15.1 % March 10, 2025 8:57:00 PM UTC (TECH: [facility]) 59651-4 Platelet mean volume [Entitic volume] in Blood by Automated count H 10.8 fl 7.4 fl - 10.4 fl March 10, 2025 8:57:00 PM UTC (TECH: [facility]) 43264-4 Granulocytes/100 leukocytes in Blood by Automated count N 67.5 % 40 % - 75 % March 10, 2025 8:57:00 PM UTC (TECH: KSM) 736-9 Lymphocytes/100 leukocytes in Blood by Automated count N 23.2 % 15 % - 57 % March 10, 2025 8:57:00 PM UTC (TECH: KSM) 5905-5 Monocytes/100 leukocytes in Blood by Automated count N 8.2 % 4.0 % - 12.0 % March 10, 2025 8:57:00 PM UTC (TECH: KSM) 713-8 Eosinophils/100 leukocytes in Blood by Automated count N 0.6 % 0.0 % - 4.0 % March 10, 2025 8:57:00 PM UTC (TECH: KSM) 706-2 Basophils/100 leukocytes in Blood by Automated count N 0.5 % 0.0 % - 1.0 % March 10, 2025 8:57:00 PM UTC (TECH: [facility]) 57505-2 Immature granulocytes [#/volume] in Blood N 0.0 % 0.0 % - 0.8 % March 10, 2025 8:57:00 PM UTC (TECH: KSM) 54510-0 Granulocytes [#/volume] in Blood by Automated count N 5.35 10^3/uL March 10, 2025 8:57:00 PM UTC (TECH: KSM) 731-0 Lymphocytes [#/volume] in Blood by Automated count N 1.84 10^3/uL March 10, 2025 8:57:00 PM UTC (TECH: KSM) 742-7 Monocytes [#/volume] in Blood by Automated count N 0.65 10^3/uL March 10, 2025 8:57:00 PM UTC (TECH: KSM) 711-2 Eosinophils [#/volume] in Blood by Automated count N 0.05 10^3/uL March 10, 2025 8:57:00 PM UTC (TECH: KSM) 704-7 Basophils [#/volume] in Blood by Automated count N 0.04 10^3/uL March 10, 2025 8:57:00 PM UTC (TECH: C[facility]) 07940-4 Immature granulocytes [#/volume] in Blood N 0.00 10^3/uL March 10, 2025 8:57:00 PM UTC (TECH: KSM) 35264-2 Manual differential performed [Presence] in Blood N NO March 10, 2025 8:57:00 PM UTC (TECH: KSM) ORDER 400: PT PROTHROMBIN TI ME W INR (LOINC: 00006-5) ORDER DATE: March 10, 2025 8:41:00 PM UTC Specimen Source: Plasma Specimen Type: Plasma specim en PERFORMING LAB: [place] [id number] Result Comment: Final Result Date: March 10, 2025 8:57:00 PM UTC (TECH: KSM) LOINC TEST FLAG [place] [address]-0 INR in Platelet poor plasma or blood by Coagulation assay H 13.1 seconds 9.1 seconds - 12.0 seconds March 10, 2025 8:57:00 PM UTC (TECH: KSM) 6301-6 INR in Platelet poor plasma by Coagulation assay H 1.22 0.9 - 1.1 March 10, 2025 8:57:00 PM UTC (TECH: KSM) ORDER 500: PTT PARTIAL THROM B TIME (LOINC: 59880-2) ORDER DATE: March 10, 2025 8:41:00 PM UTC Specimen Source: Plasma Specimen Type: Plasma specim en PERFORMING LAB: [address] [id number] Result Comment: Final Result Date: March 10, 2025 8:57:00 PM UTC (TECH: KSM) LOINC TEST FLAG [place]ULT [place] [address]-4 Activated partial thromboplastin time (aPTT) in Platelet poor plasma by Coagulation assay N 29.5 seconds 24.5 seconds - 32.8 seconds March 10, 2025 8:57:00 PM UTC (TECH: KSM) ORDER 600: TROPONIN I 1 HOUR PROTOCOL (LOINC: 26632-9) ORDER DATE: March 10, 2025 8:41:00 PM UTC Specimen Source: Plasma Specimen Type: Plasma specim en PERFORMING LAB: [address] [id number] Result Comment: Final Result Date: March 10, 2025 10:07:00 PM UTC (TECH: KSM) LOINC TEST FLAG [place] [address]-4 Troponin I.cardiac panel - Serum or Plasma by High sensitivity method N 36 ng/L 0 ng/L - 76 ng/L March 10, 2025 10:07:00 PM UTC (TECH: KSM) ORDER 900: TROPONIN QUANT (L OINC: 02678-4) ORDER DATE: March 10, 2025 8:41:00 PM UTC Specimen Source: Serum/Plasm a Specimen Type: Acellular blo od (serum or plasma) specimen PERFORMING LAB: [address] [id number] Result Comment: Final Result Date: March 10, 2025 9:05:00 PM UTC (TECH: KSM) LOINC TEST FLAG [place] [address]-4 Troponin I.cardiac panel - Serum or Plasma by High sensitivity method N 37 ng/L 0 ng/L - 76 ng/L March 10, 2025 9:05:00 PM UTC (TECH: KSM) ORDER 1000: B-TYPE NATRIURET IC PEPTIDE BNP (LOINC: 29695-2) ORDER DATE: March 10, 2025 8:41:00 PM UTC Specimen Source: Whole Blood Specimen Type: Whole blood s ample PERFORMING LAB: [address] [id number] Result Comment: Final Result Date: March 10, 2025 9:06:00 PM UTC (TECH: KSM) LOINC TEST FLAG RESULT [place] [address]-6 Natriuretic peptide B [Mass/volume] in Serum or Plasma H 220.0 pg/mL 0.0 pg/mL - 100 pg/mL March 10, 2025 9:06:00 PM UTC (TECH: KSM) ORDER 1100: MAGNESIUM (LOINC : 60562-8) ORDER DATE: March 10, 2025 8:41:00 PM UTC Specimen Source: Serum/Plasm a Specimen Type: Acellular blo od (serum or plasma) specimen PERFORMING LAB: [address] [id number] Result Comment: Final Result Date: March 10, 2025 9:05:00 PM UTC (TECH: KSM) LOINC TEST FLAG [place] [address]-3 Magnesium [Mass/volume] in Serum or Plasma N 2.0 mg/dL 1.8 mg/dL - 2.4 mg/dL March 10, 2025 9:05:00 PM UTC (TECH: KSM) ORDER 1500: PROCALCITONIN (L OINC: 12397-8) ORDER DATE: March 10, 2025 8:52:00 PM UTC Specimen Source: Serum/Plasm a Specimen Type: Acellular blo od (serum or plasma) specimen PERFORMING LAB: [address] [id number] Result Comment: Final Result Date: March 10, 2025 9:26:00 PM UTC (TECH: KSM) LOINC TEST FLAG RESULT [place] [address]-9 Procalcitonin [Mass/volume] in Serum or Plasma N <0.05 ng/ml 0.00 ng/ml - 0.5 ng/ml March 10, 2025 9:26:00 PM UTC (TECH: KSM) ORDER 1600: LACTIC ACID (JUDIE NC: 70628-1) ORDER DATE: March 10, 2025 8:52:00 PM UTC Specimen Source: Serum/Plasm a Specimen Type: Acellular blo od (serum or plasma) specimen PERFORMING LAB: [address] [id number] Result Comment: Final Result Date: March 10, 2025 9:14:00 PM UTC (TECH: KSM) LOINC TEST FLAG RESULT [place] [address]-1 Lactate [Mass/volume] in Serum or Plasma N 1.3 mmole/L 0.4 mmole/L - 2.0 mmole/L March 10, 2025 9:14:00 PM UTC (TECH: KSM) ORDER 1800: UA AND MICRO/CUL T IF INDICATED (LOINC: 33068-3) ORDER DATE: March 10, 2025 10:04:00 PM UTC Specimen Source: URINE Specimen Type: Urine specime n PERFORMING LAB: [address] [id number] Result Comment: Final Result Date: March 10, 2025 10:08:00 PM UTC (TECH: KSM) LOINC TEST FLAG RESULT REFERENCE RANGE UPDA CHRISTA BY 5778-6 Color of Urine N yellow YELLOW Decem 2024 10:08:00 PM UTC (TECH: KSM) 5767-9 Appearance of Urine N clear CLEAR March 10, 2025 10:08:00 PM UTC (TECH: [facility]) 5792-7 Glucose [Mass/volume ] in Urine by Test strip N NORM NORMAL March 10, 2025 10:08:00 PM UTC (TECH: [facility]) 09977-1 Bilirubin.total [Mass/volume] in Urine by Automated test strip N NEGATIVE NEGATIVE March 10 10:08:00 PM UTC (TECH: [facility]) 5797-6 Ketones [Mass/volume ] in Urine by Test strip N NEGATIVE NEGATIVE March 10, 2025 10:08:00 PM UTC (TECH: [facility]) 2965-2 Specific gravity of Urine N 1.010 1.005 - 1.035 March 10 10:08:00 PM UTC (TECH: [facility]) 81737-8 Erythrocytes [#/volume] in Urine by Automated test strip N NEGATIVE NEGATIVE February 10:08:00 PM UTC (TECH: [facility]) 97647-4 pH of Urine by Automated test strip N 7.00 5.0 - 7.5 February 10:08:00 PM UTC (TECH: [facility]) 73370-7 Protein [Presence] i n Urine by Test strip N 15 (TRACE) mg/dL NEGATIVE February 10:08:00 PM UTC (TECH: [facility]) 21932-9 Urobilinogen [Mass/volume] in Urine by Automated test strip N NORM NORMAL March 10 10:08:00 PM UTC (TECH: [facility]) 40711-2 Nitrate [Presence] i n Urine N NEGATIVE NEGATIVE March 10 10:08:00 PM UTC (TECH: [facility]) 80902-5 Leukocytes [#/volume ] in Urine by Test strip N TRACE (25) /mcL NEGATIVE March 10, 2025 10:08:00 PM UTC (TECH: [facility]) 17224-7 Other elements in Urine sediment N CUL ORD W/UA March 10 10:08:00 PM UTC (TECH: [facility]) 50868-4 Microscopic observation [Identifier] in Urine sediment by Light microscopy N NO March 10 10:08:00 PM UTC (TECH: [facility]) LABORATORY NARRATIVE RESULTS Information is not available RADIOLOGY RESULTS ORDER 1200: CHEST SINGLE VIE W/PORTABLE (LOINC: 31690-9) ORDER DATE: March 10, 2025 8:41:00 PM UTC PERFORMING LAB: [facility] [address] [place] [id number] Final Result Date: March 10, 2025 9:07:08 PM UTC [address] [place] [address] Name: DOLLY BAUTISTA Exam Date: 03/10/2025 : 1945 Age 79 years Gender: M Physician: Facility: [facility] Facility HSV: Outpatient Exam: CHEST SINGLE VIEW/PORTABLE XR CHEST 1 VIEW PORTABLE, 03/10/2025 3:07 PM ORTHOTIC/PROSTHETIC CLINICIAN INDICATION: Cough Borderline cardiomegaly. Underpenetration lung bases, no definite infiltrates or edema. Difficult fluid is present in the small left pleural effusion. No acute bony abnormality. IMPRESSION: No definite acute infiltrates, possible small left pleural effusion, 2 view chest follow-up is recommended given limitation of single view exam. . Electronically signed by: Janes Dos Santos MD 03/10/2025 04:47 PM [facility] Dictated By: Janes Dos Santos Transcribed By: Transcribed On: 03/10/2025 4:07 PM Electronically signed by: Janes Dos Santos 03/10/2025 Thank you for referring DOLLY BAUTISTA to [facility]. Legally authenticated by KACIE SHELL MD 2025-03-10 16:07:08 PATHOLOGY NARRATIVE RESULTS Information is not available MICROBIOLOGY RESULTS No Micro Labs/Results Exist for Patient BLOOD ADMIN RESULTS Information is not available TREATMENT PLAN DISCHARGE MEDICATIONS Status RXNORM Medication Dose Route Frequency Dates Comments U pdated By Patient discharge medication information is not available. PATIENT OPEN ORDERS Code System Descripti on Frequency Occurrenc es Priority Category Start [place] [address]-6 [facility] EKG study ONE TIME 0 Stat Decem 2024 8:41:00 PM UT MARY Trujillo MD 2596 on March 10, 2025 8:41:00 PM UT SCHEDULED PROCEDURES Code System Description Status Scheduled Date Upd ated By Patient scheduled procedure information is not available. MEDICATIONS HOME MEDICATIONS Status RXNORM [facility] Medication Dose Route Frequency Dates Comments Reported By Updated By Active 874153 00487 80717 1 atorvastatin 80 mg tablet 1.0 TAB ORAL DAILY Last Dose: [id number] on March 10, 2025 9:20:46 PM UT Active 65818 37721 1 B Complex Plus Vitamin C 70-03-95-5-3 00 mg capsule 1.0 CAP ORAL DAILY Last Dose: [id number] on March 10, 2025 9:20:46 PM UT Active 023941 21222 73792 1 clopidogrel 75 mg tablet 1.0 TAB ORAL DAILY Last Dose: [id number] on March 10, 2025 9:20:46 PM UT Active 686275 10336 60456 1 donepezil 5 mg tablet 1.0 TAB ORAL DAILY Last Dose: [id number] on March 10, 2025 9:20:46 PM UT Active 8325245 13023 69248 8 Eliquis 5 mg tablet 2.0 TAB ORAL DAILY Last Dose: [id number] on March 10, 2025 9:20:46 PM UT Active 166814 11944 89578 0 famotidine 20 mg tablet 1.0 TAB ORAL BID Last Dose: [id number] on March 10, 2025 9:20:46 PM UT Active 687208 15800 25678 1 finasteride 5 mg tablet 1.0 TAB ORAL DAILY Last Dose: [id number] on March 10, 2025 9:20:47 PM UT Active 036895 91861 02613 0 gabapentin 100 mg tablet 1.0 TAB ORAL BID Last Dose: [id number] on March 10, 2025 9:20:47 PM UT Active FreeT extMe d Klor-Con M20 oral 2.0 TAB DAILY Last Dose: [id number] on March 10, 2025 9:20:47 PM UT Active 758439 35822 73623 0 memantine 10 mg tablet 2.0 TAB ORAL DAILY Last Dose: [id number] on March 10, 2025 9:20:47 PM UT Active FreeT extMe d tamsulosin 0.4 mg capsule 1.0 CAP ORAL DAILY Last Dose: [id number] on March 10, 2025 9:20:47 PM UTC Active 605761 84864 49336 5 tramadol 50 mg tablet 1.0 TAB ORAL Q6HPRN Last Dose: [id number] on March 10, 2025 9:20:47 PM UT Active 79074 15015 5 Vitamin D3 25 mcg (1,000 unit) capsule 1.0 CAP ORAL DAILY Last Dose: [id number] on March 10, 2025 9:20:47 PM UT DISCHARGE MEDICATIONS Status RXNORM NDC Medication Dose Route Frequency Dates Dis pense Data Comments Physician Updated By No Discharge Medication Info rmation Available INPATIENT MEDICATIONS Status RXNORM ND Medication Dose Route Frequency Rat e Quantity Dates Indication Dispense Data Comments Physician Updated By Discont inued [id number] 3600 0028 225 furosemide 20 MG SOLN 20.0 MG INTRAV ENOUS ONE TIME ONLY Start: [facility] 2024 9:31:0 0 PM UTC End: [facility] 2024 9:31:0 0 PM UTC Fill Status = Completed , Repeat Number = 0, Quantity = 1.000 MARY Trujillo MD INTERFAC ED on March 10, 2025 9:29:00 PM UTC Discont inued [id number] 5443 1032 608 nitroglycer in oint (NITRO-BID) 2 % OINT 1.0 IN ENTERA L ONE TIME ONLY Start: [facility] 2024 9:31:0 0 PM UTC End: [facility] 2024 9:31:0 0 PM UTC Fill Status = Completed , Repeat Number = 0, Quantity = 1.000 MARY Trujillo MD INTERFAC ED on March 10, 2025 9:29:00 PM UT Discont inued 7656998 6603 5531 911 KLOR-CON M20 20 MEQ TBCR 20.0 MEQ ORAL ONE TIME ONLY Start: [facility] 2024 11:07: 00 PM UTC End: [facility] 2024 11:07: 00 PM UTC Fill Status = Completed , Repeat Number = 0, Quantity = 2.000 MARY Trujillo MD INTERFAC ED on March 10, 2025 11:06:00 PM UTC Discont inued 945025 9316 7011 158 potassium chloride oral (KCL) 20MEQ/15ML (10%) DARIUS 20.0 MEQ ORAL ONE TIME ONLY Start: [facility] 2024 11:15: 00 PM UTC End: [facility] 2024 11:15: 00 PM UTC Fill Status = Completed , Repeat Number = 0, Quantity = 2.000 MARY Trujillo MD INTERF ED on March 10, 2025 11:13:00 PM UTC SOCIAL HISTORY SOCIAL HISTORY - Smoking Status SNOMED-CT Social History Element Description Effective Dates Offered Cessation Comment Updated By [id number] Current Tobacco smoking status Former Smoker [id number] on March 10, 2025 9:40:30 PM UTC SOCIAL HISTORY - Gender Sex: Male SOCIAL HISTORY - Status : status i nformation is not available Intention in Next Year: intention information is not available SOCIAL HISTORY - Assessments Code System Description Status Date Value of Assessment Updated By Comment Assessment Information is no t available SOCIAL HISTORY - [place] Affiliation [place] information is not av ailable SOCIAL HISTORY - Legal Sex Legal Sex : Male (finding) SOCIAL HISTORY - Sexual Behavior Sexual Orientation Gender Identity SNOMED-CT Description SNO MED -CT Description Activity Level No of Partners Partner Type UpdatedBy Information is not available SOCIAL HISTORY - Occupation Occupation information is no t available VITAL SIGNS PATIENT VITAL SIGNS This section displays the mo st recent value for each vital sign as of March 12, 2025 3:45:19 PM UTC Loinc Code Vital Sign Activity Date Result Updated By 8310-5 Body temperature March 10 9:14:46 PM UTC 97.9 [degF] [id number] on March 11, 2025 11:31:54 PM UTC 91967-1 Body weight Measured February 9:15:45 PM UTC 97.2 kg (214.0 lb) [id number] on March 10, 2025 9:15:45 PM UTC 8462-4 Diastolic blood pressure March 10, 2025 11:30:49 PM UTC 84.0 mm[Hg] [id number] on March 11, 2025 11:32:10 PM UT 8867-4 Heart rate March 10 11:30:49 PM UTC 82 /min [id number] on March 11, 2025 11:32:[place] [address]-7 Oxygen saturation in Arterial blood by Pulse oximetry March 10, 2025 11:30:49 PM UTC 96.0 % [id number] on March 11, 2025 11:32:10 PM UT 9279-1 Respiratory rate March 10 11:30:49 PM UTC 19 /min [id number] on March 11, 2025 11:32:10 PM UTC 8480-6 Systolic blood pressure March 10, 2025 11:30:49 PM UTC 136.0 mm[Hg] [id number] on March 11, 2025 11:32:10 PM UT PEDIATRIC GROWTH CHART - VITAL SIGNS This section displays Head C ircumference Percentile, Weight for Length Percentile and BMI Percentile Loinc Code Pediatric Measure Age (Months) Result Updat ed By No Pediatric Growth Chart Pe rcentile Information Available. ENCOUNTERS ENCOUNTER INFORMATION Reason for Visit SHORTNESS OF BREATH Admission March 10, 2025 8:19:[address] [id number] Discharge March 10, 2025 11:31:00 PM UT DISCHARGED TO HOME OR SELF CARE ENCOUNTER DIAGNOSES Notes information is not kuldeep ilable. Code System Diagnosis Onset Date Diagnosis information is not available. 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02 ICD10 OPTICAL MANAGER (CURRE NT) USE OF ANTITHROMBOTICS/ANTIPLATELETS [id number] on March 12, 2025 3:44:24 PM UT CARE TEAM Care Assistant Manager Bilingual Role KALEE HERNANDEZ Admitting KALEE HERNANDEZ Primary Attending KALEE HERNANDEZ Referring MONY JULIEN Primary Care CARE TEAM CARE straight cutter Role on Team Location Telecom Status Start Date End Elvis e Updated By MARY Trujillo MD, MD Referring [address] [place] [address], [phone] normal March 10, 2025 9:09:46 PM UT March 10, 2025 11:31:00 PM UT [id number] on March 10, 2025 9:09:46 PM UT MARY Trujillo MD, MD Attending [address] [place] [address], [phone] normal March 10, 2025 9:09:46 PM UT March 10, 2025 11:31:00 PM UTC [id number] on March 10, 2025 9:09:46 PM [facility] MARY Trujillo MD, MD Admitting [address] [place] [address], [phone] normal March 10, 2025 9:09:46 PM UT March 10, 2025 11:31:00 PM UTC [id number] on March 10, 2025 9:09:46 PM [facility] ANAYA SYKES MD [address], [id number] normal March 10, 2025 8:19:37 PM UTC March 10, 2025 11:31:00 PM UTC [id number] on March 10, 2025 9:09:46 PM [facility] INSUR[employer] PROVIDERS INSURANCE PROVIDER Coverage Status - Effective Date Coverage Type Payor Plan Order Relationship To Subscriber Insurance Plan No Insurance Plan 2027-03-28 PRIMARY [phone] [id number]
[2025-03-12 10:56] LABS: Bilirubin,Urine Negative (Negative); Color,Urine YELLOW (Yellow); Glucose,Urine (UA) Negative (Negative); Ketones,Urine Negative (Negative); Leukocyte Esterase,Urine Negative (Negative); PH,Urine 7.5 (5.0-8.5); Protein,Urine Negative (Negative); Specific Gravity, Urine 1.015 (1.005-1.030); Urobilinogen,Urine 0.2 EU/dl (0.2)
[2025-03-12 11:38] LABS: Bacteria,Urine Trace /lpf
[2025-03-12] MEDS: METHYLPREDNISOLONE SOD SUCC 125MG VIAL 125 MG IV (11:43)
[2025-03-12] MEDS: NITROGLYCERIN 800MCG/8ML SYR (CATH LAB) 800 MCG IA (11:43)
[2025-03-12] MEDS: 0.9 % SODIUM CHLORIDE 500 ML 25 ML IV (11:44)
[2025-03-12] MEDS: LIDOCAINE 1% 10ML MDV 10 ML IJ (11:44)
[2025-03-12] MEDS: HEPARIN 1,000 UNITS/ML 10ML VIAL (CATH LAB) 5000 UNIT IV (11:44)
[2025-03-12] MEDS: VERAPAMIL 2.5MG/ML 2ML VIAL 2.5 MG IV (11:45)
[2025-03-12] MEDS: HEPARIN 1,000 UNITS/500ML NS (CATH LAB) 3000 UNIT IV (11:45)
[2025-03-12] MEDS: FAMOTIDINE 20MG/2ML VIAL 20 MG IV (11:48)
--- OUTSIDE RECORDS SUMMARY | 2025-03-12 11:49 | XMS_ITS | CCD ---
Author Name Armin ROCKWELLJia Address [address] [place] [address] Phone Organization [facility] Phone Care Team Providers Care Web Manager Name Role Phone Unavailable Primary Care Provider Unavailabl e Unavailable Chronic Care Management Unavaila ble Summary Purpose DataExchange Insurance Providers Payer name Policy type / Coverage type Covered constitution party ID Effective Begin Date Effective End Date [facility] MCR COMPLETE [id number] Unknown Family history Mother Diagnosis Age At Onset CAD (Coronary Artery Disease) Unknown Father Diagnosis Age At Onset CAD (Coronary Artery Disease) Unknown Social History Social History Element Codes Description Effec tive Dates Marital status Unknown 02/20/2024 Number of children Unknown 5 Living arrangements Unknown House 02/20/20 Number of children in household Unknown 0 02/20/2024 Number of adults in household Unknown 2 02/20/2024 Education level Unknown Grade School 02/20/2024 Employment Unknown Retired from [employer] 02/20/2024 Tobacco history Unknown Former User 02/20/[address]: [id number] Never drinks alco hol 02/20/2024 Illegal/Recreational drug history Unknown *Has never used illegal/recreational drugs 02/20/2024 Allergies, Adverse Reactions, Alerts Substance Reaction Codes Entered Date Inactivated Date Status Penicillin *not specified Unknown 02/20/2024 No Inactive D ate Active *No known food allergies Unknown 02/20/2024 No I nactive Date Active *No known environmental allergies Unknown 02/20/2024 No Inactive Date Active Problems Condition Codes Effective Dates Condition St atus Atrial fibrillation Unknown 02/21/2024 Active Atrial fibrillation, unspeci fied type ICD-10: I48.91 ICD-9: 427.31 02/20/2024 Active CAD (coronary artery disease) ICD-10: I2 5.10 ICD-9: 414.01 02/20/2024 Active Encounter for general adult medical examination without abnormal findings ICD-10: Z00.00 ICD-9: V70.9 02/20/2024 Active Hypertension ICD-10: I10 ICD-9: 401.9 02/20/2024 Active Moderate dementia without be havioral disturbance, psychotic disturbance, mood disturbance, or anxiety, unspecified dementia type ICD-10: F03.B0 ICD-9: 294.20 02/20/2024 Active Abnormal electrocardiogram [ ECG] [EKG] Unknown 01/16/2024 Active Atrial fibrillation, new onset ICD-10: I48.91 01/16/20 Active CAD (coronary artery disease) ICD-10: I25.10 Active Cardiomyopathy ICD-10: I42.9 01/16/2024 Active Class 2 obesity ICD-10: E66.9 01/16/2024 Active Confusion ICD-10: R41.0 01/16/2024 Active Degenerative disc disease ICD-10: ZOB0236 01/16/2024 Active Dizziness ICD-10: R42 01/16/2024 Active Dyspnea ICD-10: R06.00 01/16/2024 Active Hyperlipidemia ICD-10: E78.5 01/16/2024 Active Hypertension ICD-10: I10 01/16/2024 Active Low back pain ICD-10: M54.50 01/16/2024 Active Lumbar radiculopathy ICD-10: M54.16 01/16/2024 Activ e Memory changes ICD-10: R41.3 01/16/2024 Active Patient not seen ICD-10: UXZ.01 ICD-9: UXZ.01 01/16/2024 Active Acute hypokalemia ICD-10: E87.6 01/16/2024 Resolved Medications Medication Codes Instructions Start Date Stop Date Status Fill Instructions potassium chloride ER 20 mEq tablet,extended release RxNorm: 888421 Take 1 Tablet(s) Oral two times a day 4 05/14/19 Active Eliquis 5 mg tablet RxNorm: 5731617 Take 1 Tablet(s) Oral two times a day 4 05/14/19 Active atorvastatin 80 mg tablet RxNorm: 624330 Take 1 Tablet(s) Oral every night at bedtime 05/14/19 Active tramadol 100 mg tablet RxNorm: 0473649 Take 1 Tablet(s) Oral two times a day 4 03/20/20 Inactive clopidogrel 75 mg tablet RxNorm: 186440 Take 1 Tablet(s) Oral once daily 05/14/19 Active Neurontin 100 mg capsule RxNorm: 827217 Take 1 Capsule(s) Oral every day 4 03/20/20 Inactive famotidine 20 mg tablet RxNorm: 434599 Take 1 Tablet(s) Oral two times a day 05/14/19 Active tamsulosin 0.4 mg capsule RxNorm: 889170 Take 1 Capsule(s) Oral every day 05/14/19 Active finasteride 5 mg tablet RxNorm: 024598 Take 1 Tablet(s) Oral every day 05/19/19 25 Inactive donepezil 5 mg tablet RxNorm: 159671 Take 1 Tablet(s) Oral every day 4 05/19/19 Inactive memantine 10 mg tablet RxNorm: 458217 Take 1 Tablet(s) Oral two times a day 05/19/19 Inactive Metoprolol Succinate RxNorm: 907749 Daily 2 02/20/20 24 Inactive Metoprolol Succinate RxNorm: 545851 Daily 2 01/17/20 24 Inactive Losartan-Hydroch lorothiazide RxNorm: 209253 Daily 2 02/20/20 Inactive Tramadol RxNorm: 535300 Twice a day 2 02/20/20 24 Inactive Clopidogrel RxNorm: 576860 Daily 2 02/20/20 24 Inactive Apixaban RxNorm: 6421769 Twice a day 2 02/20/20 24 Inactive Meclizine RxNorm: 050233 Three times a day 2 02/20/20 24 Inactive Apixaban RxNorm: 6364675 Twice a day 2 01/17/20 24 Inactive Losartan-Hydroch lorothiazide RxNorm: 400439 Daily 2 01/17/20 24 Inactive Clopidogrel RxNorm: 016356 Daily 2 01/17/20 24 Inactive Tramadol RxNorm: 077620 Twice a day 2 01/17/20 24 Inactive Tramadol RxNorm: 364285 Twice a day 2 01/17/20 24 Inactive Tramadol RxNorm: 822655 Twice a day 2 01/17/20 24 Inactive Aspirin RxNorm: 163474 Daily 2 02/20/20 24 Inactive Gabapentin RxNorm: 006933 Three times a day 2 02/20/20 24 Inactive Tramadol RxNorm: 886481 Daily 2 02/20/20 24 Inactive Finasteride RxNorm: 534393 Daily 0 02/20/20 24 Inactive Potassium Chloride RxNorm: 3648904 Twice a day 8 02/20/20 24 Inactive Losartan-Hydroch lorothiazide RxNorm: 650670 Daily 8 02/20/20 24 Inactive Atorvastatin RxNorm: 520507 At bedtime nightly 8 02/20/20 24 Inactive Tamsulosin RxNorm: 107881 At bedtime nightly 8 02/20/20 24 Inactive Gabapentin RxNorm: 406117 Daily 8 02/20/20 24 Inactive Naproxen RxNorm: 691958 Daily 8 02/20/20 24 Inactive Ranitidine Hcl RxNorm: 166329 Twice a day 8 02/20/20 24 Inactive Medication Administered No Medication Administered data Procedures Procedure Codes Date MED LIST [facility]D [facility] CPT-4: 1159F 02/20/2024 RVW MEDS BY RX/ [facility] CPT-4: 1160F 2023 Screening for clinical depre ssion is negative, follow-up plan not required CPT-4: G8510 02/20/2024 Amnt pain noted; pain prsnt CPT-4: 1125F 01/27 Vital Signs Date Vital 02/20/2024 Blood Pressure 1: 120/80 Code: 8480-6 BMI: 35.9 Code: 70545-7 Heart Rate 1: 69 bpm Height: 5'5 Code: 8302-2 Respiratory Rate: 16 bpm SpO2: 96% Temperature: 36.6 (C) / 97.8 (F) Weight: 216 lbs Code: 49759-1 Reason For Visit Reason For Visit Effective Dates Notes new patient welcome visit 02/20/2024 Encounters Encounter Performer Location Location Address Codes Date ([address]) Home or Residence Visit Est Pt - Moderate Level, 40 mins Diagnosis: Encounter for general adult medical examination without abnormal findings[ICD10: Z00.00] Diagnosis: Moderate dementia without behavioral disturbance, psychotic disturbance, mood disturbance, or anxiety, unspecified dementia type[ICD10: F03.B0] Diagnosis: Atrial fibrillation, unspecified type[ICD10: I48.91] Diagnosis: CAD (coronary artery disease)[ICD10: I25.10] Diagnosis: Hypertension[ICD10 : I10] [facility] Office [address] [place] [address] CPT-4: 50942 02/20/2024 (73219) Scheduling Conflict/Patient not seen Diagnosis: Patient not seen[ICD10: UXZ.01] [facility] Office [address] [place] [address] CPT-4: 58672 01/16/2024 Plan of Care Planned Activity Notes Codes Status Date Patient Education: Patient Medication Summary Completed 02/21/2024 Visit Plan: Z00.00-V70.9 Encount er for general adult medical examination without abnormal findings F03.B0-294.20 Moderate dementia without behavioral disturbance, psychotic disturbance, mood disturbance, or anxiety, unspecified dementia type I48.91-427.31 Atrial fibrillation, unspecified type I25.10-414.01 CAD (coronary artery disease) I10-401.9 Hypertension This is a pleasant 78 year old male that presents with his for a welcome visit. Patient has a long history of dementia. His is his POA and handles everything for her . states that he has gotten progressively worse with his memory. The PCP has added medications to help with his dementia. Patient states that he has forgotten who she was before. He has gotten a little aggressive but has never tried to hurt her or anyone else. He does enjoy sitting by a window watching the birds and things outside. His got a small dog for him to play with. It has helped his mood and he appears very happy with the animal. He does have AFib that is well controlled at this time. His PCP has been monitoring all his medications at this time. He has issues with his blood pressure but takes his medications everyday. His will sort out his medications and makes sure that he takes them everyday. The issue that she is having is that his Eliquis is not covered. We did put in a referral for help with paying for his medications. We will also have sent referral for food insecurity. We will follow up with patient in four weeks for a recheck. Patient will continue all his medications as prescribed. We did advise to contact us if he needs to be seen sooner. We did talk with about making sure that the patient gets enough food into him to prevent skin breakdown. Patients verbalized understanding and agreeable to plan of care. 02/20/2024 Appointment: Jia Funez WPtel: [id number] 02/20/2024 Patient Education: Patient Medication Summary Completed 02/20/2024 Patient Education: Obesity Completed 02/20/2024 Appointment: Jia Funez WPtel: [address] [place] [address] [id number] 01/16/2024 Patient Education: Patient Medication Summary Completed 01/16/2024 Instructions Comment Date . Z00.00-V70.9 Encounter for general adult medical examination without abnormal findings F03.B0-294.20 Moderate dementia without behavioral disturbance, psychotic disturbance, mood disturbance, or anxiety, unspecified dementia type I48.91-427.31 Atrial fibrillation, unspecified type I25.10-414.01 CAD (coronary artery disease) I10-401.9 Hypertension This is a pleasant 78 year old male that presents with his for a welcome visit. Patient has a long history of dementia. His is his POA and handles everything for her . states that he has gotten progressively worse with his memory. The PCP has added medications to help with his dementia. Patient states that he has forgotten who she was before. He has gotten a little aggressive but has never tried to hurt her or anyone else. He does enjoy sitting by a window watching the birds and things outside. His got a small dog for him to play with. It has helped his mood and he appears very happy with the animal. He does have AFib that is well controlled at this time. His PCP has been monitoring all his medications at this time. He has issues with his blood pressure but takes his medications everyday. His will sort out his medications and makes sure that he takes them everyday. The issue that she is having is that his Eliquis is not covered. We did put in a referral for help with paying for his medications. We will also have sent referral for food insecurity. We will follow up with patient in four weeks for a recheck. Patient will continue all his medications as prescribed. We did advise to contact us if he needs to be seen sooner. We did talk with about making sure that the patient gets enough food into him to prevent skin breakdown. Patients verbalized understanding and agreeable to plan of care. 02/20/2024 Medical Equipment No Medical Equipment data Advance Directives No Advance Directive data
--- OUTSIDE RECORDS SUMMARY | 2025-03-12 11:50 | XMS_ITS | Clinical Summary ---
Author Organization [employer] [facility] ([place], [place], [place], [place], [place]) Address [address] [place] [address] Care Team Providers Care Portable Machine Cutter Name Role Phone Aaron Peck MD Primary Care Provider [phone] Aaron Peck MD Unavailable [phone] Social History Tobacco Use Types Packs/Day Years Used Date Smoking Tobacco: Never Assessed Food Insecurity Answer Date Recorded Food run out past 12 months Not on file 11/2023 Food did not last past 12 months Not on file 04/05/2023 Employment Answer Date Recorded Help finding and keeping a job Not on file 0 04/05/2023 Family and Community Support Answer Elvis e Recorded Help with Day to Day Activities Not on file 04/05/2023 Feeling Lonely or Isolated Not on file 04/05 Educational Attainment Answer Date Bennett rded Speak language other than Latvian at home Not on file 04/05/2023 Want help with school or training Not on file 04/05/2023 Substance Use Answer Date Recorded Used prescription meds for non-medical reasons N ot on file 04/05/2023 Used illegal drugs past 12 months Not on file 04/05/2023 Sex and Gender Information Value Date Recorded Sex Assigned at Not on file Legal Sex Male 1:23 PM CDT Gender Identity Not on file Sexual Orientation Not on file Plan of Treatment Health Maintenance Due Date Last Done Comments Depression Screening (12+) 1957 Tobacco Cessation Counseling and Screening (12+) 1957 DTAP/TDAP/TD VACCINES (1 - Tdap) 08/09/1962 Shingles Vaccine (Zoster) (1 of 2) 08/09/1993 Pneumococcal 50+ years (2 of 2 - PCV20 or PCV21) 02/01/2018 02/01/2017 Respiratory Syncytial Virus (RSV) Adult or (1 - 1-dose 75+ series) 08/09/2018 Falls Risk Screening 03/28/2024 COVID-19 VACCINE (2 - 2024-2 6 season) 2024 07/01/2020 Influenza Vaccine (#1) 2024 3, 11/25/2020, 11/25/2020, Additional history exists Insurance [facility] ACCESS O MAP Care Teams Portable Machine Cutter Relationship Specialty Start Date End Date Aaron Peck MD [address] [place] [address] [place] [address] PCP - General Adolescent Medicine 04/05/23 Aaron Peck MD [address] [place] [address] [place] [address] Referring Physician Adolescent Medicine 04/05/23
--- OUTSIDE RECORDS SUMMARY | 2025-03-12 11:52 | XMS_ITS | Referral Summary ---
Author Organization [employer] ([place], [place], [place], [place], [place]) Address [address] [place] [address] Care Team Providers Care Blacktop Spreader Name Role Phone Aaron Peck MD Primary Care Provider [phone] Aaron Peck MD Unavailable [phone] Social History Tobacco Use Types Packs/Day Years [...] Date Bennett rded Speak language other than Bhutanese at home Not on file 04/05/2023 Want [...] Orientation Not on file Plan of Treatment Not on file Insurance [facility] ACCESS O MAP Care Teams Blacktop Spreader Relationship Specialty Start Date End Date Aaron Peck MD [address] [place] [address] [place] [address] PCP - General Adolescent Medicine 04/05/23 Aaron Peck MD [address] [place] [address] [place] [address] Referring Physician Adolescent Medicine 04/05/23
[2025-03-12] MEDS: FENTANYL 100MCG/2ML VIAL 50 MCG IV (12:04)
[2025-03-12] MEDS: MIDAZOLAM HCL 1MG/ML 5ML VIAL 1 MG IV (12:04)
--- NOTE | 2025-03-12 15:05 | EXP.PN ---
Subjective *Date: 03/12/25 *Time: 15:05 Interval history: Patient feeling better today, complained about dysuria though. Follow-up UA. Lower extremity pitting edema improving today, patient feeling better. Working with physical therapy. On room air. Continue IV Lasix diuresis. Will need LifeVest on discharge. Exam Data for Last 24 hours Vital signs and Labs for Last 24 Hours: Temp Pulse Resp BP Pulse Ox O2 Del Method O2 Flow Rate 98.2 F 79 20 133/88 92 L Nasal Cannula 2 03/12/25 08:00 03/12/25 12:21 03/12/25 12:21 03/12/25 12:21 03/12/25 12:21 03/12/25 12:08 03/12/25 12:08 Laboratory Results - last 24 hr 03/11/25 12:05: HCV Ab DAPHNEY w/Rflx PCR Qn Negative 03/11/25 15:24: Troponin I 0.03 03/11/25 18:40: Troponin I 0.04 H 03/12/25 05:51: WBC 8.0, RBC 4.48 L, Hgb 12.8 L, Hct 40.5 L, MCV 90.4, MCH 28.6, MCHC 31.6 L, RDW 14.7, Plt Count 180, MPV 11.3 H, Neut % (Auto) 65.6, Lymph % (Auto) 23.9, Cameron % (Auto) 9.3, Eos % (Auto) 0.5, Baso % (Auto) 0.6, Neut # (Auto) 5.2, Lymph # (Auto) 1.9, Cameron # (Auto) 0.7, Eos # (Auto) 0.0, Baso # (Auto) 0.1, Sodium 140, Potassium 2.9 L*, Chloride 104, Carbon Dioxide 27, Anion Gap 11.9, BUN 20, Creatinine 1.40 H, Estimated Creat Clear 54, Estimated GFR 49 L, Est GFR ( Amer) 59, Glucose 111 H, Calcium 10.0, Magnesium 2.1, Total Bilirubin 1.4 H, AST 44 D, ALT 16, Alkaline Phosphatase 68, Total Protein 6.8, Albumin 4.1, Globulin 2.7, Albumin/Globulin Ratio 1.5, Triglycerides 67, Cholesterol 107 L, LDL Cholesterol Direct 54.18 L, VLDL Cholesterol 13, HDL Cholesterol 43, Cholesterol/HDL Ratio 2.5 03/12/25 10:35: Urine Color Yellow, Urine Appearance Clear, Urine pH 7.5, Ur Specific Ramona 1.015, Urine Protein Negative, Urine Glucose (UA) Negative, Urine Ketones Negative, Urine Blood Trace-i, Urine Nitrate Negative, Urine Bilirubin Negative, Urine Urobilinogen 0.2, Ur Leukocyte Esterase Negative, Urine RBC None, Urine WBC None, Ur Squamous Epith Cells None, Urine Bacteria Trace I & O for Last 24 hours: Intake & Output 03/09/25 03/10/25 03/11/25 03/12/25 23:59 23:59 23:59 23:59 Intake Total 120 / 270 650 / 650 Output Total 600 / 800 1050 / 1050 Balance -480 / -530 -400 / -400 Weight 92.675 kg 92.351 kg Constitutional Constitutional: no acute distress *Routine Respiratory Exam Respiratory: Present CTA bilaterally and symmetric chest movement *Routine Cardiovascular Exam Cardiovascular: Present RRR, Normal S1 and Normal S2 *Routine Abdominal Exam Abdominal: Present soft and normoactive bowel sounds; Absent tenderness *Routine Extremities Exam Extremities: Present full ROM and normal capillary refill; Absent edema *Routine Skin Exam Skin: Present intact, dry and warm Detailed Neck Exam: Thyroids Thyroid: Absent bruit Assessment and Plan *Assessment and plan (1) HFrEF (heart failure with reduced ejection fraction): Status: Acute Category: Medical Code(s): I50.20 - Unspecified systolic (congestive) heart failure Plan: Acute on chronic HFrEF exacerbation (2) Dementia: Problem Comment: Short-term memory impairment, episodic confusion, disorientation associated with functional decline. Unable to complete Mini-Mental status due to difficulty with reading and writing. Multifactorial including chronic A. fib, cardiomyopathy, hypertension, chronic hypoxemia. 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 Status: Chronic Qualifiers: Dementia type: vascular dementia Dementia severity: moderate Dementia behavioral or psychological symptom: without behavioral, psychotic, or mood disturbance or anxiety Qualified Code(s): F01.B0 - Vascular dementia, moderate, without behavioral disturbance, psychotic disturbance, mood disturbance, and anxiety Category: Medical Code(s): F03.90 - Unspecified dementia, unspecified severity, without behavioral disturbance, psychotic disturbance, mood disturbance, and anxiety (3) Obstructive sleep apnea hypopnea, severe: Problem Comment: 09/30/22: He is on AutoPap 10/14 cm, Ramp 4 cm full facemask, JUN Raza. Unable to tolerate constant pressure, difficulty with exhalation and high pressure leaks. Complining of feeling smother with initial pressure, (Ramp 4 cm). Compliance equal and hours: 6.7%. Average usage: 2 hours. AHI 3.3, central apnea index 2.6. Average high leak: 40 hours and 22 minutes. Compliance 03/26/2022 through 03/30/2002: Days of use: 100%, average usage: 6 hours and 8 minutes, usage equal or greater than 4 hours: 80%. AHI 3.8. Average pressure 9 cm. Status: Chronic Category: Medical Code(s): G47.33 - Obstructive sleep apnea (adult) (pediatric) (4) Atrial fibrillation: Problem Comment: On Eliquis, Plavix Status: Chronic Qualifiers: Atrial fibrillation type: persistent (not longstanding) Qualified Code(s): I48.19 - Other persistent atrial fibrillation Category: Medical Code(s): I48.91 - Unspecified atrial fibrillation (5) Hypertension: Status: Chronic Qualifiers: Hypertension type: primary hypertension Qualified Code(s): I10 - Essential (primary) hypertension Category: Medical Code(s): I10 - Essential (primary) hypertension (6) CAD (coronary artery disease): Status: Chronic Qualifiers: Coronary Disease-Associated Artery/Lesion type: [place] artery [place] vs. transplanted heart: [place] heart Associated angina: without angina Qualified Code(s): I25.10 - Atherosclerotic heart disease of [place] coronary artery without angina pectoris Category: Medical Code(s): I25.10 - Atherosclerotic heart disease of [place] coronary artery without angina pectoris (7) CHF NYHA class III: Status: Acute Qualifiers: Congestive heart failure type: systolic Congestive heart failure chronicity: acute on chronic Qualified Code(s): I50.23 - Acute on chronic systolic (congestive) heart failure Category: Medical Code(s): I50.9 - Heart failure, unspecified (8) Obesity (BMI 30.0-34.9): Status: Chronic Category: Medical Code(s): E66.811 - Obesity, class 1 Plan Leroy Burks is a 79-year-old male who presented to cardiology clinic with worsening shortness of breath and swelling in his legs. Sent to the ER for further evaluation. Found to be in heart failure exacerbation. Discussed case with ER physician, request admission for inpatient treatment including diuresis of his heart failure exacerbation. Cardiology consulted to assist with management. Problems addressed as follows: #Acute HFrEF #NSTEMI, type II #Bilateral small pleural effusions ? ECHO 03/11/2025 LV EF 25 to 30%. Previous echo earlier this year in May with EF of 50%. Has near akinesis of the basal inferoseptal, septal and anteroseptal LV rosario. The septum is asynchronous. Mild RV dilation with normal RV function. Mild to moderate AI, RVSP 40-45. ? Lower extremity pitting edema improving today, patient feeling better. Working with physical therapy. On room air. ? Continue IV Lasix 80 mg twice daily, spironolactone 25 mg. Diuresing well. Will need continued IV diuresis. Creatinine 1.4, GFR 49. Stable. ? Cardiology consulted, started GDMT with Entresto 24/25 mg, Aldactone. Waiting to start SGL TI, beta-treva after diuresis. ? LHC on 03/12/2025 revealed nonocclusive coronary disease, recommended medical management. Troponins plateaued at 0.04. ? Will need LifeVest on discharge. ? Continue Plavix 75 mg, statin. ? Follow-up morning CMP, magnesium. Atrial fibrillation ? Heart rate well-controlled today, in the 70s. Continue Eliquis 5 mg twice daily #Dysuria ? Follow-up UA. Back pain: Continue home tramadol 50 mg as needed every 6 hours Dementia: Continue memantine 10 mg twice daily, donepezil 5 mg nightly BPH: Continue finasteride 5 mg and tamsulosin 0.4 mg nightly Hyperlipidemia/CAD: Continue Crestor 40 mg daily, continue Plavix 75 mg daily Full code Cardiac diet Eliquis
[2025-03-12] MEDS: SACUBITRIL/VALSARTAN 24-26MG TABLET 1 EACH PO ×2 (15:12→21:23)
[2025-03-12] MEDS: SPIRONOLACTONE 25MG TABLET 25 MG PO (15:12)
--- NOTE | 2025-03-12 18:31 | PC.NURSE ---
Pt has remained confused, only alert to self. Pure[place] has remained in place. requiring x1 assist to get to bedside commode. pt is restless at times but is easily reoriented. has remained at bedside. [facility] completed this shift, no stents placed. Right radial cath site remains c/d/i. No complaints at this time, bed alarm in place.
[2025-03-12] MEDS: ATORVASTATIN 40MG TABLET 80 MG PO (21:23)
[2025-03-13] VITALS: BP 109/55; PULSE 56; PULSE 60; RESP 16; TEMP 36.5; O2SAT 90
[2025-03-13 04:00] VITALS: BP 97/68; PULSE 66; PULSE 70; RESP 14; TEMP 36.5; O2SAT 94; BMI 32.7
[2025-03-13 06:17] LABS: Hematocrit 47.3 % (42.0-52.0); Immature Granulocytes % 0.4 %; Mean Corpuscular HGB Conc 31.3 g/dL (31.8-35.4); Mean Corpuscular Hemoglobin 28.4 pg (27.0-31.2); Mean Corpuscular Volume 90.8 fl (80-94); Nucleated Red Blood Cells % 0 %; Platelet Count 220 K/mm3 (142-424); Red Blood Count 5.21 M/mm3 (4.60-6.20); Red Cell Distribution Width-SD 49.2 fL; White Blood Count 12.8 K/mm3 (4.8-10.8)
[2025-03-13 06:23] LABS: Hemoglobin 14.8 g/dL (14.1-18.0)
[2025-03-13 06:34] LABS: Albumin Level 4.7 g/dl (3.5-5.0); Chloride 100 mmol/L (98-107)
[2025-03-13 06:35] LABS: Sodium 141 mmol/L (136-145)
[2025-03-13 06:37] LABS: Alanine Aminotransferase 23 U/L (12-78); Alkaline Phosphatase 73 U/L (38-126); Aspartate Amino Transferase 30 U/L (17-59); Bilirubin,Total 1.4 mg/dl (0.2-1.3); Blood Urea Nitrogen 25 mg/dl (9-20); Carbon Dioxide 35 mmol/L (22.0-30.0); Creatinine Clearance Estimated 42 mL/min (50-200); Creatinine,Serum 1.80 mg/dl (0.66-1.25); Estimated Glomerular Filt Rate 36 ml/min (>60); GFR (African American) 44 ML/MIN (>60)
[2025-03-13 06:38] LABS: Albumin/Globulin Ratio 1.5 (1.1-1.8); Anion Gap 9.4 mEq/L (5-15); Calcium 10.9 mg/dl (8.4-10.2); Globulin 3.1 g/dL (1.3-3.2); Glucose 129 mg/dl (74-100); Magnesium 2.2 mg/dl (1.6-2.3); Potassium 3.4 mmoL/L (3.5-5.1); Total Protein,Serum 7.8 g/dl (6.3-8.2)
[2025-03-13 08:00] VITALS: BP 107/55; PULSE 65; RESP 16; TEMP 36.5; O2SAT 98
--- NOTE | 2025-03-13 08:49 | EXP.CARD.PN ---
Subjective Subjective Date: 03/13/25 Time: 08:00 Principal diagnosis: Volume overload, Acute HFrEF Interval history: Morning labs reviewed. Has Diuresed well. Vitals stable. Exam Data for Last 24 hours Vital signs and Labs for Last 24 Hours: Temp Pulse Resp BP Pulse Ox O2 Del Method O2 Flow Rate 97.7 F 65 16 107/55 L 98 Room Air 2 03/13/25 08:00 03/13/25 08:00 03/13/25 08:00 03/13/25 08:00 03/13/25 08:00 03/13/25 08:00 03/13/25 07:00 Laboratory Results - last 24 hr 03/12/25 10:35: Urine Color Yellow, Urine Appearance Clear, Urine pH 7.5, Ur Specific [place] 1.015, Urine Protein Negative, Urine Glucose (UA) Negative, Urine Ketones Negative, Urine Blood Trace-i, Urine Nitrate Negative, Urine Bilirubin Negative, Urine Urobilinogen 0.2, Ur Leukocyte Esterase Negative, Urine RBC None, Urine WBC None, Ur Squamous Epith Cells None, Urine Bacteria Trace 03/13/25 05:30: WBC 12.8 H D, RBC 5.21, Hgb 14.8 D, Hct 47.3, MCV 90.8, MCH 28.4, MCHC 31.3 L, RDW 14.6, Plt Count 220, MPV 11.7 H, Neut % (Auto) 83.6 H, Lymph % (Auto) 9.4 L, [place] % (Auto) 6.4, Eos % (Auto) 0.0 L, Baso % (Auto) 0.2, Neut # (Auto) 10.7 H, Lymph # (Auto) 1.2, [place] # (Auto) 0.8, Eos # (Auto) 0.0, Baso # (Auto) 0.0, Sodium 141, Potassium 3.4 L, Chloride 100, Carbon Dioxide 35 H, Anion Gap 9.4, BUN 25 H, Creatinine 1.80 H D, Estimated Creat Clear 42, Estimated GFR 36 L, Est GFR ( Amer) 44 L D, Glucose 129 H, Calcium 10.9 H, Magnesium 2.2, Total Bilirubin 1.4 H, AST 30 D, ALT 23 D, Alkaline Phosphatase 73, Total Protein 7.8, Albumin 4.7 D, Globulin 3.1, Albumin/Globulin Ratio 1.5 I & O for Last 24 hours: Intake & Output 03/10/25 03/11/25 03/12/25 03/13/25 23:59 23:59 23:59 23:59 Intake Total 120 / 270 870 / 870 Output Total 600 / 800 2250 / 2500 250 / 250 Balance -480 / -530 -1380 / -1630 -250 / -250 Weight 204 lb 5 oz 203 lb 9.6 oz 203 lb 9.585 oz Constitutional Constitutional: no acute distress *Routine Respiratory Exam Respiratory: Present CTA bilaterally and symmetric chest movement *Routine Cardiovascular Exam Cardiovascular: Present RRR, Normal S1 and Normal S2 *Routine Abdominal Exam Abdominal: Present soft and normoactive bowel sounds; Absent tenderness *Routine Extremities Exam Extremities: Present full ROM and normal capillary refill; Absent edema *Routine Skin Exam Skin: Present intact, dry and warm Detailed Neck Exam: Thyroids Thyroid: Absent bruit Progress Note: A&P Assessment and plan (1) HFrEF (heart failure with reduced ejection fraction): Status: Acute (2) Dementia: Problem details: Short-term memory impairment, episodic confusion, disorientation associated with functional decline. Unable to complete Mini-Mental status due to difficulty with reading and writing. Multifactorial including chronic A. fib, cardiomyopathy, hypertension, chronic hypoxemia. 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 Status: Chronic (3) Obstructive sleep apnea hypopnea, severe: Problem details: 09/30/22: He is on AutoPap 10/14 cm, Ramp 4 cm full facemask, Ry, DME. Unable to tolerate constant pressure, difficulty with exhalation and high pressure leaks. Complining of feeling smother with initial pressure, (Ramp 4 cm). Compliance equal and hours: 6.7%. Average usage: 2 hours. AHI 3.3, central apnea index 2.6. Average high leak: 40 hours and 22 minutes. Compliance 03/26/2022 through 03/30/2002: Days of use: 100%, average usage: 6 hours and 8 minutes, usage equal or greater than 4 hours: 80%. AHI 3.8. Average pressure 9 cm. Status: Chronic (4) Atrial fibrillation: Problem details: On Eliquis, Plavix Status: Chronic (5) Hypertension: Status: Chronic (6) CAD (coronary artery disease): Status: Chronic (7) CHF NYHA class III: Status: Acute (8) Obesity (BMI 30.0-34.9): Status: Chronic Assessment and Plan Assessment and Plan for All Diagnoses:: Acute HFrEF-resolving History of CAD EF 50 05/2024, repeat echo shows an EF of 25 to 30%. Near akinesis of the basal inferoseptal, septal and anteroseptal LV rosario. The septum is asynchronous. Mild RV dilation with normal RV function. Mild to moderate AI, RVSP 40-45 Bilateral LE edema present- improving Small bilateral pleural effusions present on admission Continue Lasix 40mg po daily [facility] 03/12/2025-medical management LifeVest prior to discharge-pending Continue Plavix 75 mg p.o. daily and rosuvastatin 40 mg p.o. daily Contineu Entresto 24/26mg po BID Continue Aldactone Start Jardiance Will hold on beta blockers at this time due to soft blood pressures and recent heart failure exacerbation with EF of 25-30. History of A-fib Currently A-fib rate controlled Continue Eliquis 5 mg p.o. twice daily CV summary 03/13/2025: Patient is CV stable for DC home once life vest is placed. Continue below listed meds and have patient follow up in cardiology clinic in 1 week. Consider addition of beta treva at office follow up if BP will tolerate. Will need labs checked at office follow up. Cardiac meds: Plavix 75 mg p.o. daily Rosuvastatin 40 mg p.o. daily Entresto 24/26 mg p.o. twice daily Aldactone 25 mg p.o. daily Eliquis 5 mg p.o. twice daily Jardiance 10mg po daily Lasix 40mg po daily
[2025-03-13] MEDS: EMPAGLIFLOZIN 10MG TABLET 10 MG PO (09:14)
[2025-03-13] MEDS: SACUBITRIL/VALSARTAN 24-26MG TABLET 1 EACH PO (09:14)
[2025-03-13] MEDS: FAMOTIDINE 20MG TABLET 20 MG PO (09:15)
[2025-03-13] MEDS: CLOPIDOGREL 75MG TAB 75 MG PO (09:15)
[2025-03-13] MEDS: GABAPENTIN 100MG CAPSULE 100 MG PO (09:15)
[2025-03-13] MEDS: FINASTERIDE 5MG TABLET 5 MG PO (09:15)
[2025-03-13] MEDS: APIXABAN 5MG TABLET 5 MG PO (09:15)
[2025-03-13] MEDS: TAMSULOSIN 0.4MG CAPSULE 0.4 MG PO (09:15)
[2025-03-13] MEDS: FUROSEMIDE 40 MG TABLET PO (09:15)
[2025-03-13] MEDS: MEMANTINE 10MG TABLET 10 MG PO (09:15)
[2025-03-13] MEDS: SPIRONOLACTONE 25MG TABLET 25 MG PO (09:20)
--- NOTE | 2025-03-13 11:10 | EXP.DC.SUM ---
General Admission date:: 03/11/25 HPI HPI HPI: Mr. Burks is a 79-year-old male with history of CAD, HFpEF, hypertension, dementia, A-fib on Eliquis. EF 50% in May 2024. He presented to cardiology clinic today for evaluation with concern for CHF. Reports that he has been having increased shortness of breath and swelling in his legs over the past several weeks. About 2 weeks ago he was started on diuretics by his PCP unfortunately he has not had desired response. He presented to [facility] yesterday and they referred him to cardiology today. On arrival, was found to be short of breath and was sent to the ER at [facility] for evaluation. On workup in the ER, patient found to be frankly overloaded White count normal at 7.9, dyspneic with exertion. Positive for orthopnea. Potassium 3.3. Creatinine 1.5. Troponin 0.03. BNP elevated at 6400. Chest imaging showing small effusions. Medicine consulted for admission and further management of heart failure and volume overload. Patient received 40 mg IV Lasix in the ER. Stable on room air at the time of my assessment on arrival to the floor. Denies chest pain, nausea, vomiting. Hospital Course Hospital Course Hospital Course: Leroy Burks is a 79-year-old male who presented to cardiology clinic with worsening shortness of breath and swelling in his legs. Sent to the ER for further evaluation. Found to be in heart failure exacerbation. Discussed case with ER physician, request admission for inpatient treatment including diuresis of his heart failure exacerbation. Cardiology consulted to assist with management. Problems addressed as follows: #Acute HFrEF #NSTEMI, type II #Bilateral small pleural effusions ? ECHO 03/11/2025 LV EF 25 to 30%. Previous echo earlier this year in May with EF of 50%. Has near akinesis of the basal inferoseptal, septal and anteroseptal LV rosario. The septum is asynchronous. Mild RV dilation with normal RV function. Mild to moderate AI, RVSP 40-45. ? Cardiology consulted, s/p LHC on 03/12/2025 revealed nonocclusive coronary disease, recommended medical management. Troponins plateaued at 0.04. ? Overall, clinically improved with IV Lasix and spironolactone diuresis. Patient feels better, breathing easier, lower extremity edema significantly improved. On room air. ? Cardiology started GDMT with Entresto 24/26 mg, spironolactone 25 mg, Jardiance 10 mg. Holding off on beta-treva at this time due to history of hypotension. ? Discussed with patient and at bedside regarding LifeVest, they understand the benefits of LifeVest but at this time they decline as states patient has a high chance of tugging at it and taking it off due to confusion. ? Discharged with Lasix 40 mg, spironolactone 25 mg, Jardiance 10 mg, Entresto 24/26 mg. Continue home Plavix 75 mg, rosuvastatin 20 mg. ? Follow-up with cardiology within 1 week. Atrial fibrillation ? Heart rate well-controlled today, in the 70s. Continue Eliquis 5 mg twice daily Back pain: Continue home tramadol 50 mg as needed every 6 hours Dementia: Continue memantine 10 mg twice daily, donepezil 5 mg nightly BPH: Continue finasteride 5 mg and tamsulosin 0.4 mg nightly Hyperlipidemia/CAD: Continue Crestor 40 mg daily, continue Plavix 75 mg daily Total time spent on discharge: 32 minutes on chart review, counseling, documentation, and direct care with patient. Exam Data for Last 24 hours Vital signs and Labs for Last 24 Hours: Temp Pulse Resp BP Pulse Ox O2 Del Method O2 Flow Rate 97.7 F 65 16 107/55 L 98 Room Air 2 03/13/25 08:00 03/13/25 08:00 03/13/25 08:00 03/13/25 08:00 03/13/25 08:00 03/13/25 09:00 03/13/25 07:00 Laboratory Results - last 24 hr 03/12/25 10:35: Urine Color Yellow, Urine Appearance Clear, Urine pH 7.5, Ur Specific [place] 1.015, Urine Protein Negative, Urine Glucose (UA) Negative, Urine Ketones Negative, Urine Blood Trace-i, Urine Nitrate Negative, Urine Bilirubin Negative, Urine Urobilinogen 0.2, Ur Leukocyte Esterase Negative, Urine RBC None, Urine WBC None, Ur Squamous Epith Cells None, Urine Bacteria Trace 03/13/25 05:30: WBC 12.8 H D, RBC 5.21, Hgb 14.8 D, Hct 47.3, MCV 90.8, MCH 28.4, MCHC 31.3 L, RDW 14.6, Plt Count 220, MPV 11.7 H, Neut % (Auto) 83.6 H, Lymph % (Auto) 9.4 L, [place] % (Auto) 6.4, Eos % (Auto) 0.0 L, Baso % (Auto) 0.2, Neut # (Auto) 10.7 H, Lymph # (Auto) 1.2, [place] # (Auto) 0.8, Eos # (Auto) 0.0, Baso # (Auto) 0.0, Sodium 141, Potassium 3.4 L, Chloride 100, Carbon Dioxide 35 H, Anion Gap 9.4, BUN 25 H, Creatinine 1.80 H D, Estimated Creat Clear 42, Estimated GFR 36 L, Est GFR ( Amer) 44 L D, Glucose 129 H, Calcium 10.9 H, Magnesium 2.2, Total Bilirubin 1.4 H, AST 30 D, ALT 23 D, Alkaline Phosphatase 73, Total Protein 7.8, Albumin 4.7 D, Globulin 3.1, Albumin/Globulin Ratio 1.5 I & O for Last 24 hours: Intake & Output 03/10/25 03/11/25 03/12/25 03/13/25 23:59 23:59 23:59 23:59 Intake Total 120 / 270 870 / 870 0 / 0 Output Total 600 / 800 2250 / 2500 250 / 250 Balance -480 / -530 -1380 / -1630 -250 / -250 Weight 92.675 kg 92.351 kg 92.351 kg Constitutional Constitutional: no acute distress *Routine Respiratory Exam Respiratory: Present CTA bilaterally and symmetric chest movement *Routine Cardiovascular Exam Cardiovascular: Present RRR, Normal S1 and Normal S2 *Routine Abdominal Exam Abdominal: Present soft and normoactive bowel sounds; Absent tenderness *Routine Extremities Exam Extremities: Present full ROM and normal capillary refill; Absent edema *Routine Skin Exam Skin: Present intact, dry and warm Detailed Neck Exam: Thyroids Thyroid: Absent bruit Results Data Completed and Pending Labs on day of discharge: Labs from last 24 hours 03/13/25 03/12/25 05:30 10:35 WBC 12.8 H D RBC 5.21 Hgb 14.8 D Hct 47.3 MCV 90.8 MCH 28.4 MCHC 31.3 L RDW 14.6 Plt Count 220 MPV 11.7 H Neut % (Auto) 83.6 H Lymph % (Auto) 9.4 L [place] % (Auto) 6.4 Eos % (Auto) 0.0 L Baso % (Auto) 0.2 Neut # (Auto) 10.7 H Lymph # (Auto) 1.2 [place] # (Auto) 0.8 Eos # (Auto) 0.0 Baso # (Auto) 0.0 Sodium 141 Potassium 3.4 L Chloride 100 Carbon Dioxide 35 H Anion Gap 9.4 BUN 25 H Creatinine 1.80 H D Estimated Creat Clear 42 Estimated GFR 36 L Est GFR ( Amer) 44 L D Glucose 129 H Calcium 10.9 H Magnesium 2.2 Total Bilirubin 1.4 H AST 30 D ALT 23 D Alkaline Phosphatase 73 Total Protein 7.8 Albumin 4.7 D Globulin 3.1 Albumin/Globulin Ratio 1.5 Urine Color Yellow Urine Appearance Clear Urine pH 7.5 Ur Specific [place] 1.015 Urine Protein Negative Urine Glucose (UA) Negative Urine Ketones Negative Urine Blood Trace-i Urine Nitrate Negative Urine Bilirubin Negative Urine Urobilinogen 0.2 Ur Leukocyte Esterase Negative Urine RBC None Urine WBC None Ur Squamous Epith Cells None Urine Bacteria Trace DS: Diagnosis Discharge Diagnosis (1) HFrEF (heart failure with reduced ejection fraction): Status: Acute Code(s): I50.20 - Unspecified systolic (congestive) heart failure (2) Dementia: Status: Chronic Code(s): F03.90 - Unspecified dementia, unspecified severity, without behavioral disturbance, psychotic disturbance, mood disturbance, and anxiety Qualifiers: Dementia behavioral or psychological symptom: without behavioral, psychotic, or mood disturbance or anxiety Dementia severity: moderate Dementia type: vascular dementia Qualified Code(s): F01.B0 - Vascular dementia, moderate, without behavioral disturbance, psychotic disturbance, mood disturbance, and anxiety Problem details: Short-term memory impairment, episodic confusion, disorientation associated with functional decline. Unable to complete Mini-Mental status due to difficulty with reading and writing. Multifactorial including chronic A. fib, cardiomyopathy, hypertension, chronic hypoxemia. 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 (3) Obstructive sleep apnea hypopnea, severe: Status: Chronic Code(s): G47.33 - Obstructive sleep apnea (adult) (pediatric) Problem details: 09/30/22: He is on AutoPap 10/14 cm, Ramp 4 cm full facemask, JUN Raza. Unable to tolerate constant pressure, difficulty with exhalation and high pressure leaks. Complining of feeling smother with initial pressure, (Ramp 4 cm). Compliance equal and hours: 6.7%. Average usage: 2 hours. AHI 3.3, central apnea index 2.6. Average high leak: 40 hours and 22 minutes. Compliance 03/26/2022 through 03/30/2002: Days of use: 100%, average usage: 6 hours and 8 minutes, usage equal or greater than 4 hours: 80%. AHI 3.8. Average pressure 9 cm. (4) Atrial fibrillation: Status: Chronic Code(s): I48.91 - Unspecified atrial fibrillation Qualifiers: Atrial fibrillation type: persistent (not longstanding) Qualified Code(s): I48.19 - Other persistent atrial fibrillation Problem details: On Eliquis, Plavix (5) Hypertension: Status: Chronic Code(s): I10 - Essential (primary) hypertension Qualifiers: Hypertension type: primary hypertension Qualified Code(s): I10 - Essential (primary) hypertension (6) CAD (coronary artery disease): Status: Chronic Code(s): I25.10 - Atherosclerotic heart disease of [place] coronary artery without angina pectoris Qualifiers: Associated angina: without angina Coronary Disease-Associated Artery/Lesion type: [place] artery [place] vs. transplanted heart: [place] heart Qualified Code(s): I25.10 - Atherosclerotic heart disease of [place] coronary artery without angina pectoris (7) CHF NYHA class III: Status: Acute Code(s): I50.9 - Heart failure, unspecified Qualifiers: Congestive heart failure chronicity: acute on chronic Congestive heart failure type: systolic Qualified Code(s): I50.23 - Acute on chronic systolic (congestive) heart failure (8) Obesity (BMI 30.0-34.9): Status: Chronic Code(s): E66.811 - Obesity, class 1 Meds Home Medications and Allergies Home Medications ?Medication ?Instructions ?Recorded ?Confirmed ?Type apixaban 5 mg tablet (Eliquis) 5 mg PO BID Blood thinner 12/14/21 03/11/25 History clopidogrel 75 mg tablet (Plavix) 75 mg PO DAILY 12/14/21 03/11/25 History famotidine 20 mg tablet 20 mg PO BID 03/10/23 03/11/25 History memantine 10 mg tablet 10 mg PO BID 11/15/23 03/11/25 History donepezil 5 mg tablet 5 mg PO HS 03/26/24 03/11/25 History brexpiprazole 1 mg tablet (Rexulti) 1 mg PO DAILY 03/11/25 03/11/25 History finasteride 5 mg tablet 5 mg PO DAILY 03/11/25 03/11/25 History rosuvastatin 40 mg tablet 40 mg PO DAILY 03/11/25 03/11/25 History tamsulosin 0.4 mg capsule 0.4 mg PO DAILY 03/11/25 03/11/25 History empagliflozin 10 mg tablet 10 mg PO DAILY 30 days #30 tabs 03/13/25 Rx (Jardiance) furosemide 40 mg tablet 40 mg PO DAILY 30 days #30 tabs 03/13/25 Rx sacubitril 24 mg-valsartan 26 mg 1 tab PO BID 30 days #60 tabs 03/13/25 Rx tablet (Entresto) spironolactone 25 mg tablet 25 mg PO DAILY 30 days #30 tabs 03/13/25 Rx New Prescriptions to Start Prescriptions: empagliflozin [Jardiance] Tad Roach furosemide Tad Roach sacubitril-valsartan [Entresto] Tad Roach spironolactone Tad Roach Allergies Allergy/AdvReac Type Severity Reaction Status Date / Time loratadine (From Claritin) Allergy Mild rash Verified 03/11/25 10:58 naproxen Allergy Mild Rash Verified 03/11/25 10:58 codeine Allergy Unknown Rash Verified 03/11/25 10:58 Penicillins Allergy Unknown Rash Verified 03/11/25 10:58 Iodinated Contrast Media AdvReac Mild Hives Verified 03/11/25 10:58 ketorolac (From Toradol) AdvReac Mild Rash Verified 03/11/25 10:58 strawberry AdvReac Mild Rash Verified 03/11/25 10:58 Discharge Plan Disposition Patient Disposition: Home, Self-Care Condition: Fair Discharge Order Discharge Orders: Discharge Order (Routine); Ordered 03/13/25 Ordered By: Tad Roach Follow up Plan Follow up with: Iris Garg APRN [Nurse Practitioner, Cardiology] - 03/26/25 1:00 pm Aaron Peck MD [Primary Care Provider, Internal Medicine] - 03/19/25 11:15 am Prescriptions/Medication Reconciliation: New furosemide 40 mg Tablet 40 mg PO DAILY 30 Days Qty: 30 0RF spironolactone 25 mg Tablet 25 mg PO DAILY 30 Days Qty: 30 0RF Jardiance 10 mg Tablet 10 mg PO DAILY 30 Days Qty: 30 0RF sacubitril-valsartan [Entresto] 24-26 mg Tablet 1 tab PO BID 30 Days Qty: 60 0RF Continued memantine 10 mg tablet 10 mg PO BID donepezil 5 mg tablet 5 mg PO HS famotidine 20 mg tablet 20 mg PO BID clopidogrel [Plavix] 75 mg tablet 75 mg PO DAILY Eliquis 5 mg tablet 5 mg PO BID tamsulosin 0.4 mg capsule 0.4 mg PO DAILY finasteride 5 mg tablet 5 mg PO DAILY rosuvastatin 40 mg tablet 40 mg PO DAILY Rexulti 1 mg Tablet 1 mg PO DAILY Discontinued furosemide [Lasix] 20 mg tablet 20 mg PO DAILY Problem Reconciliation Problems Reviewed?: Yes Patient Discharge Instructions Patient Instructions: DI for Heart Failure, Stop Light Heart Failure Print Language: Estonian Providers Primary Care Provider: Aaron Peck Admit Provider: Eric Burciaga Attending Provider: Eric Burciaga
--- NOTE | 2025-03-13 11:25 | PC.NURSE ---
pancho with lifevest speaking with pt and at this time
--- NOTE | 2025-03-14 10:22 | SW/DCPLANNER ---
Spoke with patient on the phone. Patient stated that he is feeling very well. Patient stated that he is aware of his upcoming appointments. Patient stated that he was able to get his new medicine and that it was brought to his room before he was discharged. Patient stated that he has no concerns or questions at this time. Lizbeth Rain
== END 2025-03-13 13:08 | disposition home or self-care (01) | DRG 280 ==
LOC: ER 13:04 → 2ND 13:09
PROVIDERS: Internal Medicine; Student in an Organized Health Care Education/Training Program; Admitting Provider Internal Medicine Adolescent Medicine; Emergency Provider Student in an Organized Health Care Education/Training Program; PCP Internal Medicine Adolescent Medicine; Visit Provider Internal Medicine Adolescent Medicine
PROC: 4A023N7 Measurement of Cardiac Sampling and Pressure, Left Heart, Percutaneous Approach (ICD-10-PCS; CPT 93452; principal; 2025-03-12 10:00)
DX: I11.0 Hypertensive heart disease with heart failure (principal); I50.23 Acute on chronic systolic (congestive) heart failure; I21.A1 Myocardial infarction type 2; I48.20 Chronic atrial fibrillation, unspecified; F01.B0 Vascular dementia, moderate, without behavioral disturbance, psychotic disturbance, mood disturbance, and anxiety; G47.33 Obstructive sleep apnea (adult) (pediatric); I25.10 Atherosclerotic heart disease of native coronary artery without angina pectoris; E66.811 Obesity, class 1; Z79.01 Long term (current) use of anticoagulants; E78.5 Hyperlipidemia, unspecified; Z95.818 Presence of other cardiac implants and grafts; Z79.899 Other long term (current) drug therapy; Z87.891 Personal history of nicotine dependence; J44.9 Chronic obstructive pulmonary disease, unspecified; N40.0 Benign prostatic hyperplasia without lower urinary tract symptoms; Z87.442 Personal history of urinary calculi; R30.0 Dysuria; M54.9 Dorsalgia, unspecified; Z79.02 Long term (current) use of antithrombotics/antiplatelets; E87.6 Hypokalemia; Z68.33 Body mass index [BMI] 33.0-33.9, adult
CPT/HCPCS: 36415; 71045; 80053; 80061; 81001; 83735; 83880; 84484; 85025; 86803; 87389; 93005; 93306; 97162; 97165; 97530; 99152; 99284; C1760; C1769; C1887; J1200; J1308; J1644; J1938; J2003; J2250; J2919; J3010; J7040